=== PATIENT | female | born 2000 | race Caucasian/White ===

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

== ENCOUNTER 2021-01-08 21:31 | Emergency (ER) | payer OTHER, SELFPAY ==
--- NOTE | ~2021-01-08 | US_ITS ---
EXAMINATION: US OB <= 14 weeks fetus EXAM DATE: 01/08/2021 22:42 INDICATION: Pain, bleeding pos preg test, eval for ectopic. 1st trimester. TECHNIQUE: Pelvic obstetrical transabdominal sonogram was performed by a technologist. There are mu ltiple grayscale and Doppler images available for interpretation. There are no earlier studies of th is gestation for comparison. FINDINGS: Uterus measures 7.1 x 3.2 x 4.0 cm. There is no intrauterine or extrauterine iden tified. The ovaries are morphologically normal, and both demonstrate low resistance Doppler waveform. There is no free pelvic fluid. Early intrauterine or recent spontaneous are common causes of elevated beta hCG in absence of intrauterine confirmation. Ultrasound can sometimes identify, but never exclud e an ectopic in the setting of positive beta hCG. Follow up as warranted clinically with s erial beta hCG levels or ultrasound. IMPRESSION: No intrauterine or extrauterine identified. Follow up as warranted clinically with serial beta hCG levels or ultrasound. Reviewed, dictated and finalized at location A.
[2021-01-08 21:35] VITALS: BP 139/84; PULSE 96; RESP 16; TEMP 36.1; O2SAT 99
[2021-01-08 22:27] LABS: Add Urine Microscopic? YES; Appearance Urine Cloudy (Clear); Bacteria Urine Trace /hpf; Bilirubin Urine Negative (Negative); Blood Urine 3+ (Negative); Color Urine Yellow (Yellow); Glucose Urine UA 3+ mg/dL (Negative); Ketones Urine Negative (Negative); Leukocyte Esterase Ur Trace LEU/UL (Negative); Nitrate Urine Negative (Negative); Protein Urine 2+ mg/dL (Negative); RBC Urine >75 /hpf (0-2); Specific Grav Ur 1.015 (1.001-1.035); Squamous Epithelial Cell Urine Moderate /hpf (Few); Urobilinogen Urine Negative mg/dL (<2.0)
[2021-01-08 23:29] LABS: Basophils Percent Auto 0.3 % (0.2-1.2); Eosinophils Absolute Auto 0.1 K/mm3 (0-0.3); Eosinophils Percent Auto 0.5 % (0-4.4); Hematocrit 43.1 % (37.0-47.0); Hemoglobin 14.6 g/dL (12.0-15.0); Immature Granulocyte Absolute 0.02 K/mm3 (0.00-0.031); Immature Granulocyte Percent A 0.2 % (0-0.5); Lymphocytes Absolute Auto 3.51 K/mm3 (0.9-3.2); Lymphocytes Percent Auto 35.4 % (18.3-44.2); Mean Corpuscular HGB Conc 33.9 g/dl (32-36); Mean Corpuscular Hemoglobin 29.7 pg (26-34); Mean Corpuscular Volume 87.8 fl (80-100); Mean Platelet Volume 9.7 fl (7.4-10.4); Monocytes Absolute Auto 0.6 K/mm3 (0.1-0.6); Monocytes Percent Auto 6.4 % (2.6-8.5); Neutrophils Absolute Auto 5.7 K/mm3 (1.3-6.7); Neutrophils Percent Auto 57.2 % (45.5-73.1); Platelet Count Result 414 k/mm3 (150-375); Red Blood Count 4.91 M/mm3 (4.2-5.4); Red Cell Distribution Width 12.5 % (11.5-14.5); White Blood Count 9.9 K/mm3 (4.5-10.0)
[2021-01-08] MEDS: SODIUM CHLORIDE 0.9% IV 1,000 ML 999 ML IV CONT (23:41)
[2021-01-08 23:42] LABS: Alanine Aminotransferase 16 U/L (4-35); Albumin Level 4.8 g/dL (3.7-5.6); Alkaline Phosphatase 95 U/L (45-116); Anion Gap 9 mmol/L (8-16); Aspartate Amino Transferase 28 U/L (14-36); Bilirubin,Total 0.5 mg/dL (0.2-1.3); Blood Urea Nitrogen 8 mg/dL (8-21); Carbon Dioxide 30 mmol/L (22-30); Chloride 99 mmol/L (98-107); Estimated CRCL calculation 170 ml/min; Estimated Glomerular Filt Rate > 60; Glucose 167 mg/dL (65-105); Potassium 3.4 mmol/L (3.4-5.0); Sodium 138 mmol/L (134-143)
--- NOTE | 2021-01-08 23:43 | ED.FEMALEGU ---
HPI - Female Genitourinary General Chief complaint: Vaginal Bleeding Stated complaint: possible 4 weeks / spotting cramping Time Seen by Provider: 01/08/21 22:20 Source: patient Mode of arrival: ambulatory Limitations: no limitations History of Present Illness HPI Narrative: Patient is a 20 year old female who presents with complaints of vaginal spotting. Patient reports positive home test x2 which she took 2 days ago. She reports vaginal spotting and states blood with wiping . She denies pelvic pain or other complaints. MD elicited complaint: vaginal discharge and suspected Related Data Home Medications Medication Instructions Recorded Confirmed insulin glargine [Lantus U-100 27 unit SUBCUT HS 12/10/20 12/10/20 Insulin] fenofibrate 160 mg PO DAILY 12/13/20 12/13/20 insulin lispro protamin-lispro SUBCUT 12/13/20 [Humalog Mix 50-50 KwikPen] norgestimate-ethinyl estradiol 1 tablet PO DAILY 12/13/20 12/13/20 [Estarylla] sertraline [Zoloft] 100 mg PO DAILY 12/13/20 12/13/20 Allergies Allergy/AdvReac Type Severity Reaction Status Date / Time No Known Allergies Allergy Verified 01/08/21 23:24 Review of Systems Review of Systems: Narrative: CONSTITUTIONAL: Denies fever, chills, or sweats. EYES: Denies visual changes, redness, or discharge. ENT: Denies rhinorrhea, congestion, sore throat, or otalgia. CARDIOVASCULAR: Denies chest pain, palpitations, or edema. RESPIRATORY: Denies cough or dyspnea. GASTROINTESTINAL: Denies abdominal pain, nausea, vomiting, or diarrhea. GENITOURINARY: Reports light vaginal bleeding x1 day SKIN: Denies rash or itching. MUSCULOSKELETAL: Denies back pain, joint pain, or myalgia. NEUROLOGIC: Denies headache, numbness, dizziness, or weakness. PSYCHIATRIC: Denies anxiety or depression. [facility] Past Medical History Medical History Depression High cholesterol Type 2 diabetes mellitus Family History Family History Other Diabetes mellitus Heart disease Hypertension Social History Social History (Updated 01/08/21 @ 23:47 by CARITO Thompson) Smoking status: Never smoker Alcohol intake: never Substance use: never Comments At the time of signature, I have reviewed and agree with nursing past medical, surgical, social, and family history unless otherwise noted. Please see nursing chart for further information. There is no relevant family history pertinent to the presenting complaint. Exam Narrative: Exam Narrative: GENERAL: Well-appearing, well-nourished, and in no acute distress. HEAD: Normocephalic, atraumatic. EYES: EOMI. No redness or drainage. Conjunctiva are normal. ENT: Mucous membranes pink and moist. CHEST: No respiratory distress. HEART: Regular rate and rhythm. EXTREMITIES: Normal range of motion. No edema. SKIN: Warm, dry, no rash. NEURO: No focal deficits. Alert and oriented x3. Gait steady. PSYCH: Normal affect. No signs of depression or anxiety. Course Vital Signs Vital signs: Vital Signs Temperature 36.1 C L 01/08/21 21:35 Pulse Rate 96 01/08/21 21:35 Respiratory Rate 16 01/08/21 21:35 Blood Pressure 139/84 01/08/21 21:35 Pulse Oximetry 99 01/08/21 21:35 Temperature 36.1 C L 01/08/21 21:35 Pulse Rate 96 01/08/21 21:35 Respiratory Rate 16 01/08/21 21:35 Blood Pressure 139/84 01/08/21 21:35 Pulse Oximetry 99 01/08/21 21:35 Reviewed MDM - Female Genitourinary MDM Narrative Medical decision making narrative: Patient's ultrasound did not show gestational sac. Patient's beta quant 126. Discussed serial beta HCG, patient agrees with plan of care and will follow up with OBGYN as scheduled. Lab Data Result diagrams: 01/08/21 23:22 01/08/21 22:00 Labs: Lab Results 01/08/21 01/08/21 01/08/21 Range/Units 22:00 22:12 23:22 WBC 9.
[2021-01-09 00:05] LABS: Beta HCG Quantitative 126.49 mIU/ML
[2021-01-09 01:09] VITALS: BP 128/83; PULSE 95; RESP 18; O2SAT 97
== END 2021-01-09 01:10 | disposition home or self-care (01) ==
PROVIDERS: Emergency Medicine; Emergency Provider Nurse Practitioner
DX: O20.9 Hemorrhage in early pregnancy, unspecified (principal); O24.111 Pre-existing type 2 diabetes mellitus, in pregnancy, first trimester; E11.9 Type 2 diabetes mellitus without complications; Z79.4 Long term (current) use of insulin; O99.341 Other mental disorders complicating pregnancy, first trimester; F32.9 Major depressive disorder, single episode, unspecified; Z3A.01 Less than 8 weeks gestation of pregnancy
CPT/HCPCS: 36415; 76801; 80053; 81001; 81025; 84702; 85025; 85461; 87077; 87086; 87088; 96360; 96372; 99284; J7030

== ENCOUNTER 2021-01-09 21:13 | Emergency (ER) | payer OTHER, SELFPAY ==
[2021-01-09 21:15] VITALS: BP 122/80; PULSE 99; RESP 16; TEMP 36.3; O2SAT 98
--- NOTE | 2021-01-09 22:27 | ED.FEMALEGU ---
HPI - Female Genitourinary General Chief complaint: Vaginal Bleeding Stated complaint: vaginal bleeding, Time Seen by Provider: 01/09/21 22:09 Source: patient Mode of arrival: ambulatory Limitations: no limitations History of Present Illness HPI Narrative: This is a 20-year-old female that presents the emergency department for vaginal bleeding. Reports her last menstrual period was in August, which is not unusual for her due to her PCOS. Reports she had a positive home test 2 days ago. She started bleeding and having cramping yesterday. She was seen in the ED for this and had an ultrasound that did not show an intrauterine or extrauterine , likely due to how early she was. Reports she is now having worsening bleeding. This is causing her to feel dizzy. Denies fever, chest pain, shortness of breath, vomiting, or dysuria. Related Data Home Medications Medication Instructions Recorded Confirmed insulin glargine [Lantus U-100 27 unit SUBCUT HS 12/10/20 12/10/20 Insulin] fenofibrate 160 mg PO DAILY 12/13/20 12/13/20 insulin lispro protamin-lispro SUBCUT 12/13/20 [Humalog Mix 50-50 KwikPen] norgestimate-ethinyl estradiol 1 tablet PO DAILY 12/13/20 12/13/20 [Estarylla] sertraline [Zoloft] 100 mg PO DAILY 12/13/20 12/13/20 Allergies Allergy/AdvReac Type Severity Reaction Status Date / Time No Known Allergies Allergy Verified 01/08/21 23:24 Review of Systems Review of Systems: Narrative: CONSTITUTIONAL: Denies fever GASTROINTESTINAL: Reports abdominal pain. Denies nausea, vomiting GENITOURINARY: Denies dysuria All systems reviewed & are unremarkable except as noted in HPI and below PMFSH Past Medical History Medical History Depression High cholesterol Type 2 diabetes mellitus Family History Family History Other Diabetes mellitus Heart disease Hypertension Social History Social History (Updated 01/08/21 @ 23:47 by CARITO Thompson) Smoking status: Never smoker Alcohol intake: never Substance use: never Exam Narrative: Exam Narrative: GENERAL: Well-appearing, well-nourished, anxious HEAD: Normocephalic, atraumatic. EYES: EOMI. CHEST: Clear to auscultation. No respiratory distress. No wheezes rales or rhonchi HEART: Regular rate and rhythm. No murmur heard. Normal peripheral pulses. ABDOMEN: Soft, nontender, nondistended, normal active bowel sounds. EXTREMITIES: Normal range of motion. No edema. SKIN: Warm, dry, no rash. NEURO: No focal deficits. Alert and oriented x3. PSYCH: Normal mood and affect PELVIC: Normal external genitalia. Normal-appearing cervix. Small amount of dark red blood in the vaginal vault Course Consultations Consultation #1: Spoke with Dr. Farnsworth about patient and work-up who will follow-up in clinic. Date: 01/10/21 Time: 00:31 Vital Signs Vital signs: Vital Signs Temperature 97.4 F L 01/09/21 21:15 Pulse Rate 99 01/09/21 21:15 Respiratory Rate 16 01/09/21 21:15 Blood Pressure 122/80 01/09/21 21:15 Pulse Oximetry 98 01/09/21 21:15 Temperature 97.4 F L 01/09/21 21:15 Pulse Rate 72 01/10/21 00:19 Respiratory Rate 18 01/10/21 00:19 Blood Pressure 118/66 01/10/21 00:19 Pulse Oximetry 98 01/09/21 21:15 MDM - Female Genitourinary MDM Narrative Medical decision making narrative: Patient presents the emergency department for pelvic cramping and vaginal bleeding. Was seen here yesterday for same. Had an ultrasound that did not show intrauterine or extrauterine , likely due to early gestation. Her quantitative beta-hCG at that time was 126, repeat today is 48. Small amount of dark red blood in the vaginal vault. Her hemoglobin is 13.5. Patient has A positive. She did have a UA yesterday that appeared to be contaminated. Culture came back today and is positive for gr
[2021-01-09] MEDS: SODIUM CHLORIDE 0.9% IV 1,000 ML 999 ML IV CONT (22:42)
[2021-01-09 22:50] LABS: Basophils Percent Auto 0.4 % (0.2-1.2); Eosinophils Absolute Auto 0.1 K/mm3 (0-0.3); Eosinophils Percent Auto 0.6 % (0-4.4); Hematocrit 40.6 % (37.0-47.0); Hemoglobin 13.5 g/dL (12.0-15.0); Immature Granulocyte Absolute 0.03 K/mm3 (0.00-0.031); Immature Granulocyte Percent A 0.4 % (0-0.5); Lymphocytes Absolute Auto 3.97 K/mm3 (0.9-3.2); Lymphocytes Percent Auto 48.9 % (18.3-44.2); Mean Corpuscular HGB Conc 33.3 g/dl (32-36); Mean Corpuscular Hemoglobin 29.6 pg (26-34); Mean Platelet Volume 9.8 fl (7.4-10.4); Monocytes Absolute Auto 0.5 K/mm3 (0.1-0.6); Monocytes Percent Auto 5.9 % (2.6-8.5); Neutrophils Absolute Auto 3.6 K/mm3 (1.3-6.7); Neutrophils Percent Auto 43.8 % (45.5-73.1); Platelet Count Result 374 k/mm3 (150-375); Red Blood Count 4.56 M/mm3 (4.2-5.4); Red Cell Distribution Width 12.5 % (11.5-14.5); White Blood Count 8.1 K/mm3 (4.5-10.0)
[2021-01-09 22:56] LABS: Alanine Aminotransferase 14 U/L (4-35); Albumin Level 4.4 g/dL (3.7-5.6); Alkaline Phosphatase 81 U/L (45-116); Anion Gap 6 mmol/L (8-16); Aspartate Amino Transferase 22 U/L (14-36); Bilirubin,Total 0.2 mg/dL (0.2-1.3); Blood Urea Nitrogen 8 mg/dL (8-21); Calcium 9.3 mg/dL (8.9-10.7); Carbon Dioxide 30 mmol/L (22-30); Chloride 100 mmol/L (98-107); Estimated CRCL calculation 170 ml/min; Estimated Glomerular Filt Rate > 60; Glucose 264 mg/dL (65-105); Potassium 4.1 mmol/L (3.4-5.0); Sodium 136 mmol/L (134-143)
[2021-01-09 23:03] LABS: Hemoglobin A1C 7.9 % (<5.7)
[2021-01-09 23:12] VITALS: BP 110/68; PULSE 67
[2021-01-09 23:13] VITALS: BP 111/71; PULSE 76
[2021-01-09 23:15] VITALS: BP 113/64; PULSE 84
[2021-01-10 00:19] VITALS: BP 118/66; PULSE 72; RESP 18
== END 2021-01-10 00:41 | disposition home or self-care (01) ==
PROVIDERS: Physician Assistant; Emergency Provider Emergency Medicine
DX: O20.0 Threatened abortion (principal); Z3A.00 Weeks of gestation of pregnancy not specified; O23.10 Infections of bladder in pregnancy, unspecified trimester
CPT/HCPCS: 36415; 80053; 83036; 84702; 85025; 96361; 96365; 99284; J0131; J7030

== ENCOUNTER 2021-01-10 13:38 | Emergency (ER) | payer OTHER, SELFPAY ==
--- NOTE | ~2021-01-10 | XR_ITS ---
EXAMINATION: XR chest 1V portable DATE: 01/10/2021 16:44 INDICATION: Lightheadedness. TECHNIQUE: A single frontal view of the chest was obtained. COMPARISON: None. FINDINGS: The chest demonstrates clear lungs without pneumonia, pleural effusion, or pneumothorax. Th e heart size is normal. IMPRESSION: 1. No acute cardiopulmonary disease. Reviewed, dictated and finalized at location B.
[2021-01-10 13:45] VITALS: BP 144/75; PULSE 97; RESP 20; TEMP 36.3; O2SAT 100
--- NOTE | 2021-01-10 16:21 | ED.DIZZY ---
HPI - Dizziness General Chief Complaint: Dizziness Stated Complaint: dizzy Time Seen by Provider: 01/10/21 16:11 Source: patient Mode of arrival: ambulatory Limitations: no limitations History of Present Illness HPI Narrative: This is a 20 year old female that presents to the ER for lightheadedness. Reports ongoing over the last couple of hours. I saw her in the ED last night for vaginal bleeding in . Also reports ongoing bleeding and cramping. Reports some difficulty catching her breath. Has follow-up appointment with her OB tomorrow. Denies fever, chest pain, vomiting, numbness or weakness. Related Data Home Medications Medication Instructions Recorded Confirmed insulin glargine [Lantus U-100 27 unit SUBCUT HS 12/10/20 12/10/20 Insulin] fenofibrate 160 mg PO DAILY 12/13/20 12/13/20 insulin lispro protamin-lispro SUBCUT 12/13/20 [Humalog Mix 50-50 KwikPen] norgestimate-ethinyl estradiol 1 tablet PO DAILY 12/13/20 12/13/20 [Estarylla] sertraline [Zoloft] 100 mg PO DAILY 12/13/20 12/13/20 Allergies Allergy/AdvReac Type Severity Reaction Status Date / Time No Known Allergies Allergy Verified 01/08/21 23:24 Review of Systems Review of Systems: Narrative: CONSTITUTIONAL: Denies fever CARDIOVASCULAR: Denies chest pain, or edema. RESPIRATORY: Reports dyspnea. GASTROINTESTINAL: Denies nausea, vomiting NEUROLOGIC: Denies numbness, or weakness. All systems reviewed & are unremarkable except as noted in HPI and below PMFSH Past Medical History Medical History Depression High cholesterol Type 2 diabetes mellitus Family History Family History Other Diabetes mellitus Heart disease Hypertension Social History Social History (Updated 01/08/21 @ 23:47 by CARITO Thompson) Smoking status: Never smoker Alcohol intake: never Substance use: never Exam Narrative: Exam Narrative: GENERAL: Well-appearing, well-nourished, and in no acute distress. HEAD: Normocephalic, atraumatic. EYES: PERRLA and EOMI. ENT: Nares clear, no rhinorrhea or epistaxis. Mucous membranes moist. Oropharynx without tonsillar hypertrophy exudate or other lesions. Bilateral TMs pearly nugent non-bulging NECK: Supple. No adenopathy or masses. CHEST: Clear to auscultation. No respiratory distress. No wheezes rales or rhonchi HEART: Regular rate and rhythm. No murmur heard. Normal peripheral pulses. EXTREMITIES: Normal range of motion. No edema. SKIN: Warm, dry, no rash. NEURO: No focal deficits. Alert and oriented x3. Cranial nerves II through XII grossly intact PSYCH: Normal mood and affect Course Vital Signs Vital signs: Vital Signs Temperature 97.4 F L 01/10/21 13:45 Pulse Rate 97 01/10/21 13:45 Respiratory Rate 20 01/10/21 13:45 Blood Pressure 144/75 H 01/10/21 13:45 Pulse Oximetry 100 01/10/21 13:45 Temperature 97.4 F L 01/10/21 13:45 Pulse Rate 88 01/10/21 17:29 Respiratory Rate 16 01/10/21 17:29 Blood Pressure 122/85 01/10/21 17:29 Pulse Oximetry 98 01/10/21 17:29 MDM - Dizziness MDM Narrative Medical decision making narrative: Patient presents the emergency department for lightheadedness noted over the last couple of hours. She is afebrile and nontoxic-appearing. Vitals are stable. CBC with hemoglobin of 12.4. Chest x-ray is without acute findings. EKG without concerning changes. This is the patient's third ED visit in the last 3 days. Currently miscarrying. Beta hCG has dropped from 126 to 48 to 29. She has follow-up with her OB tomorrow. She is still having some bleeding. She is A positive. She is also currently being treated for UTI with cephalexin. Reports improvement in her symptoms with IV fluids and Tylenol. She is to follow-up with her OB at her scheduled visit. She was given warnings to return to the ER Lab Data Attestation: I review
[2021-01-10 16:33] VITALS: BP 116/76; PULSE 76; RESP 16; O2SAT 100
--- NOTE | 2021-01-10 16:43 | PC.NURSE ---
xray at bedside.
[2021-01-10 16:45] LABS: Basophils Percent Auto 0.2 % (0.2-1.2); Eosinophils Percent Auto 0.4 % (0-4.4); Hematocrit 37.7 % (37.0-47.0); Hemoglobin 12.4 g/dL (12.0-15.0); Immature Granulocyte Absolute 0.01 K/mm3 (0.00-0.031); Immature Granulocyte Percent A 0.1 % (0-0.5); Lymphocytes Absolute Auto 3.43 K/mm3 (0.9-3.2); Lymphocytes Percent Auto 41.4 % (18.3-44.2); Mean Corpuscular HGB Conc 32.9 g/dl (32-36); Mean Corpuscular Hemoglobin 29.4 pg (26-34); Mean Corpuscular Volume 89.3 fl (80-100); Mean Platelet Volume 10.1 fl (7.4-10.4); Monocytes Absolute Auto 0.6 K/mm3 (0.1-0.6); Monocytes Percent Auto 6.9 % (2.6-8.5); Neutrophils Absolute Auto 4.2 K/mm3 (1.3-6.7); Platelet Count Result 346 k/mm3 (150-375); Red Blood Count 4.22 M/mm3 (4.2-5.4); Red Cell Distribution Width 12.6 % (11.5-14.5); White Blood Count 8.3 K/mm3 (4.5-10.0)
[2021-01-10] MEDS: SODIUM CHLORIDE 0.9% IV 500 ML 999 ML IV CONT (16:46)
[2021-01-10] MEDS: ACETAMINOPHEN 500 MG TABLET 1000 MG PO (16:46)
[2021-01-10 17:10] LABS: Beta HCG Quantitative 29.33 mIU/ML
[2021-01-10 17:29] VITALS: BP 122/85; PULSE 88; RESP 16; O2SAT 98
--- NOTE | 2021-01-10 17:43 | ECG_ITS ---
Measurements Intervals [place] Rate: 77 P: 17 ND: 128 QRS: 44 QRSD: 94 T: 43 QT: 397 QTc: 452 Interpretive Statements SINUS RHYTHM WITH SINUS ARRHYTHMIA NORMAL ECG Electronically Signed On 01-10-2021 19:35:57 CDT by Bogdan Pan D.O.
--- NOTE | 2021-01-10 17:51 | PC.NURSE ---
Assumed care of pt. at this time. Report from Mary Abdi RN
[2021-01-10 18:30] VITALS: BP 120/76; PULSE 87; RESP 19; O2SAT 100
== END 2021-01-10 18:30 | disposition home or self-care (01) ==
PROVIDERS: Physician Assistant; Emergency Provider Emergency Medicine
DX: R42 Dizziness and giddiness (principal); O03.9 Complete or unspecified spontaneous abortion without complication; E11.9 Type 2 diabetes mellitus without complications; N39.0 Urinary tract infection, site not specified
CPT/HCPCS: 36415; 71045; 84702; 85025; 93005; 96360; 99283; A9270; J7040

== ENCOUNTER 2021-02-17 09:47 | Emergency (ER) | payer OTHER, SELFPAY ==
[2021-02-17 09:58] VITALS: BP 118/65; PULSE 84; RESP 16; TEMP 36.2; O2SAT 100
[2021-02-17 10:00] VITALS: BP 118/65; PULSE 84; RESP 16; TEMP 36.2; O2SAT 100
--- NOTE | 2021-02-17 10:15 | ECG_ITS ---
Measurements Intervals [place] Rate: 80 P: 10 MI: 139 QRS: 50 QRSD: 90 T: 43 QT: 390 QTc: 450 Interpretive Statements SINUS RHYTHM NORMAL ECG Electronically Signed On 02-17-2021 12:25:46 CDT by Bogdan Pan D.O.
[2021-02-17 10:27] LABS: Glucose Point of Care 169 mg/dl (65-105)
[2021-02-17 10:30] VITALS: BP 131/71; PULSE 78
[2021-02-17 10:31] VITALS: BP 119/74; BP 134/79; PULSE 57; PULSE 94
--- NOTE | 2021-02-17 10:40 | ED.GENADULT ---
HPI - General Adult General Chief complaint: Dizziness Stated complaint: dizziness/tingling toes-fingers Time Seen by Provider: 02/17/21 10:40 Source: patient, RN notes reviewed and other (significant other-ok to speak freely in front of and to) Mode of arrival: ambulatory Limitations: no limitations History of Present Illness HPI narrative: 20-year-old female presents with significant other, both complains of dizziness, migraines, headache, and tingling in fingers and toes symptoms being going on for the past 2-3 weeks. ?Re reports increasing symptoms over the past 2-3 days. ?No treatment. Exacerbating factors consist of changing position too fast, turning head from side to side too fast. ?Relieving factors are sitting still. ?Denies ear pain, ear itching, ear trauma, trauma to head, syncopal episodes, altered vision, altered speech, confusion, or seizure activity. ?Denies headache, numbness or tingling in extremities. ?Denies chest pain or dyspnea. ?Denies URI symptoms, fever, or chills. ?Denies nausea, vomiting, abdominal pain. ?Tolerating p.o. intake well. ?Remains active. ?The patient reports she has not been diagnosed with COVID-19. ?The patient reports she is not waiting for the results of a COVID-19 lab test. ?The patient reports she does not have weakness or fatigue. ?The patient reports she does not have a new or worsening cough. ?The patient reports she does not have any rhinorrhea, congestion, sore throat, loss of taste or smell, and diarrhea. ?Denies recent traveling. ?Denies concerns for COVID-19 or exposures. ?At this time, the patient is not suspected of having COVID-19. Complains of intermittent depression, problems concentrating, auditory, and visual hallucination. ?Re reports being treated for depression, problems concentrating, auditory and ?visual hallucination since the age of 6. ?Has undergone counseling and treatment for years without much relief. ?Denies suicidal or homicidal ideation, or feeling hopeless. ?Denies current anxiety, panic attacks, irritability, feelings of guilt, worthlessness, or hopelessness. Denies recreational drug usage.? Some parts of this dictation were generated by voice recognition software and may contain typographical and/or grammatical inaccuracies. Related Data Home Medications Medication Instructions Recorded Confirmed insulin glargine [Lantus U-100 27 unit SUBCUT HS 12/10/20 12/10/20 Insulin] sertraline [Zoloft] 100 mg PO DAILY 12/13/20 12/13/20 [place] 3 Fish Oil 02/17/21 02/17/21 Allergies Allergy/AdvReac Type Severity Reaction Status Date / Time No Known Allergies Allergy Verified 01/08/21 23:24 Review of Systems Review of Systems: Narrative: CONSTITUTIONAL: Denies fever, chills, sweats. EYES: Denies visual changes, redness, discharge. ENT: Denies rhinorrhea, congestion, sore throat, otalgia. CARDIOVASCULAR: Denies chest pain, palpitations, edema. RESPIRATORY: Denies dyspnea, wheezing, cough. GASTROINTESTINAL: Denies abdominal pain, nausea, vomiting, diarrhea. GENITOURINARY: Denies dysuria, hematuria, abnormal discharge. SKIN: Denies lesions, itching, drainage. MUSCULOSKELETAL: Denies acute back pain, joint pain, or myalgia. NEUROLOGIC: Denies numbness or focal weakness. Complains of dizziness, lightheadedness, and tingling to fingers and toes. PSYCHIATRIC: Denies anxiety or SI/HI. Complaints of VELA, problems concentrating, auditory, and visual hallucination, depression. All systems reviewed & are unremarkable except as noted in HPI and below. [facility] Past Medical History Medical History (Updated 02/18/21 @ 00:01 by Marin Stuart) Depression Heart disease High cholesterol Hx of migraines Ingrown toenail of both feet PCOS (polycystic ovarian syndrome) TMJ (dislocation of temporomandibular joint) Type 2 diabetes mellitus Surgical History Surgical History (Updated 02/17/21 @ 11:15 by CARITO Thomas) History of dental surgery
--- NOTE | 2021-02-17 11:02 | PC.NURSE ---
orthostatics done at 1030 and tolerated well. ekg done at 1038. 1058 boyfriend used call button and concerned with oxygen. pulse ox 100% ra, resp 16 nonlabored, and taked in full complete sentences. was placed on continous pulse ox. screenplay writer at bedside to do exam.
[2021-02-17] MEDS: KETOROLAC (*BKC) 60 MG/2 ML VIAL IM (11:16)
[2021-02-17] MEDS: MECLIZINE HCL 25 MG TABLET PO (11:17)
== END 2021-02-17 12:06 | disposition home or self-care (01) ==
PROVIDERS: Emergency Provider Nurse Practitioner Family; PCP Physician Assistant
DX: H81.10 Benign paroxysmal vertigo, unspecified ear (principal); R51.9 Headache, unspecified; F32.9 Major depressive disorder, single episode, unspecified; E78.00 Pure hypercholesterolemia, unspecified; E28.2 Polycystic ovarian syndrome; E11.9 Type 2 diabetes mellitus without complications
CPT/HCPCS: 81003; 82948; 93005; 96372; 99213; A9270; G0463; J1885

== ENCOUNTER 2021-03-10 23:14 | Emergency (ER) | payer OTHER, SELFPAY ==
--- NOTE | ~2021-03-10 | XR_ITS ---
EXAMINATION: XR chest 1V DATE: 03/11/2021 00:40 INDICATION: Altered mental status. TECHNIQUE: A single frontal view of the chest was obtained. COMPARISON: Chest single view 01/10/2021 FINDINGS: The lung volumes are small. No pneumonia, pleural effusion, or pneumothorax. The heart size is normal. IMPRESSION: 1. No acute cardiopulmonary disease. Reviewed, dictated and finalized at location A.
--- NOTE | ~2021-03-10 | CT_ITS ---
EXAMINATION: CT brain wo con DATE: 03/11/2021 00:37 INDICATION: Altered mental status. TECHNIQUE: Computed tomography (CT) of the head was performed without intravenous contrast. The mA wa s adjusted according to patient size. Iterative reconstruction technique was employed. The dose-lengt h product was 605.33 mGy-cm. COMPARISON: None FINDINGS: There is no intracranial hemorrhage, acute infarction, or abnormal intracranial mass lesion . The ventricles are normal in size. There is mucosal thickening in the paranasal sinuses. The mastoi d air cells are normal. The orbits are normal. IMPRESSION: 1. Normal brain. Reviewed, dictated and finalized at location A. IMPRESSION: 1. Normal brain.
[2021-03-10] MEDS: LORazepam INJ (*CRX) 2 MG/ML VIAL 1 MG IV PUSH (23:32)
[2021-03-10] MEDS: SODIUM CHLORIDE 0.9% IV 1,000 ML 999 ML IV CONT (23:33)
[2021-03-10 23:35] VITALS: BP 171/142; PULSE 141; RESP 30; TEMP 37; O2SAT 99
[2021-03-10 23:39] LABS: Glucose Point of Care 249 mg/dl (65-105)
[2021-03-11] VITALS (9 sets, daily range): BP systolic 95–124; BP diastolic 55–94; PULSE 79–124; RESP 18; O2SAT 97–100
--- NOTE | 2021-03-11 | PC.NURSE ---
pt yelling in hebrew, crying, eyes closed, not answering any questions at this time. this rn in room getting labs & urine from pt.
[2021-03-11 00:12] LABS: Basophils Percent Auto 0.3 % (0.2-1.2); Eosinophils Absolute Auto 0.1 K/mm3 (0-0.3); Eosinophils Percent Auto 0.5 % (0-4.4); Hematocrit 44.8 % (37.0-47.0); Immature Granulocyte Absolute 0.04 K/mm3 (0.00-0.031); Immature Granulocyte Percent A 0.3 % (0-0.5); Lymphocytes Absolute Auto 6.51 K/mm3 (0.9-3.2); Lymphocytes Percent Auto 41.5 % (18.3-44.2); Mean Corpuscular HGB Conc 33.5 g/dl (32-36); Mean Corpuscular Hemoglobin 28.6 pg (26-34); Mean Corpuscular Volume 85.3 fl (80-100); Monocytes Absolute Auto 1.2 K/mm3 (0.1-0.6); Monocytes Percent Auto 7.5 % (2.6-8.5); Neutrophils Absolute Auto 7.8 K/mm3 (1.3-6.7); Neutrophils Percent Auto 49.9 % (45.5-73.1); Platelet Count Result 445 k/mm3 (150-375); Red Blood Count 5.25 M/mm3 (4.2-5.4); Red Cell Distribution Width 12.4 % (11.5-14.5); White Blood Count 15.7 K/mm3 (4.5-10.0)
[2021-03-11 00:14] LABS: Add Urine Microscopic? YES; Appearance Urine Clear (Clear); Bilirubin Urine Negative (Negative); Blood Urine Negative (Negative); Color Urine Yellow (Yellow); Glucose Urine UA 3+ mg/dL (Negative); Ketones Urine Negative (Negative); Leukocyte Esterase Ur Negative LEU/UL (Negative); Mucus Urine Rare /lpf; Nitrate Urine Negative (Negative); Protein Urine Negative (Negative); RBC Urine 0-2 /hpf (0-2); Squamous Epithelial Cell Urine Rare /hpf (Few); Urobilinogen Urine Negative mg/dL (<2.0); WBC Urine 0-3 /hpf
[2021-03-11 00:15] LABS: Alanine Aminotransferase 16 U/L (4-35); Alkaline Phosphatase 92 U/L (45-116); Anion Gap 13 mmol/L (8-16); Aspartate Amino Transferase 22 U/L (14-36); Bilirubin,Total 0.3 mg/dL (0.2-1.3); Blood Urea Nitrogen 12 mg/dL (8-21); Calcium 10.2 mg/dL (8.9-10.7); Carbon Dioxide 21 mmol/L (22-30); Chloride 102 mmol/L (98-107); Estimated Glomerular Filt Rate > 60; Glucose 268 mg/dL (65-105); Prothrombin Time 12.9 Seconds (11.1-14.7); Sodium 136 mmol/L (134-143)
[2021-03-11 00:16] LABS: Ethanol < 10 mg/dL (<10)
[2021-03-11] MEDS: OLANZapine 10 MG INJ VIAL 5 MG IM (00:16)
[2021-03-11 00:17] LABS: Partial Thromboplastin Time 26.4 SECONDS (22.3-36.8)
[2021-03-11 00:20] LABS: Specific Grav Ur 1.032 (1.001-1.035)
--- NOTE | 2021-03-11 00:45 | PC.NURSE ---
pt speaking to this rn at this time. pt states she is having auditory and visual hallucinations of stick figures that are trying to harm her. pt denies any SI or HI tendencies at this time. she states she has had this happen in the past when she was 15 years old. she states she takes zoloft and hasnt missed any doses. she states she moved here from [place] 5 months ago to be with her boyfriend that she met online. she reports seeing a psychiatrist in [place] but denies seeing one here.
--- NOTE | 2021-03-11 00:45 | PC.NURSE ---
pt yelling in hebrew, crying, eyes closed, not answering any questions at this time. this rn in room getting labs & urine from pt.
--- NOTE | 2021-03-11 00:55 | ED.GENADULT ---
HPI - General Adult General Chief complaint: Altered Mental Status <Bj Ferrer DO - Last Filed: 03/11/21 06:11> Stated complaint: Hallucinations, dizziness <Bj Ferrer DO - Last Filed: 03/11/21 06:11> Time Seen by Provider: 03/10/21 23:23 <Bj Ferrer DO - Last Filed: 03/11/21 06:11> Source: RN notes reviewed <Bj Ferrer DO - Last Filed: 03/11/21 06:11> History of Present Illness HPI narrative: Patient presents to emergency department from home for altered mental status. Patient is currently screaming out nonsensically crying and wailing in the room unable to give any history patient presents with her boyfriend. Per the boyfriend they are watching a movie this evening when the patient looked admits that she did not feel good and needed to the emergency department. States she then began to kind of mumble but really not speech anymore on the way to the emergency department the patient began to scream out and cry repeatedly states the patient was in normal health earlier today with no complaints and was acting like herself the states the patient has a history of diabetes <Bj Ferrer DO - Last Filed: 03/11/21 06:11> Related Data Home medications: Home Medications Medication Instructions Recorded Confirmed insulin glargine [Lantus U-100 27 unit SUBCUT HS 12/10/20 12/10/20 Insulin] sertraline [Zoloft] 100 mg PO DAILY 12/13/20 12/13/20 [place] 3 Fish Oil 02/17/21 02/17/21 <Bj Ferrer DO - Last Filed: 03/11/21 06:11> Allergies/adverse reactions: Allergies Allergy/AdvReac Type Severity Reaction Status Date / Time No Known Allergies Allergy Verified 01/08/21 23:24 <Bj Ferrer DO - Last Filed: 03/11/21 06:11> Review of Systems Review of Systems: ROS unobtainable: Yes unobtainable due to medical condition <Bj Ferrer DO - Last Filed: 03/11/21 06:11> [facility] Past Medical History Medical History: Medical History Depression Heart disease High cholesterol Hx of migraines Ingrown toenail of both feet PCOS (polycystic ovarian syndrome) TMJ (dislocation of temporomandibular joint) Type 2 diabetes mellitus <Bj Ferrer DO - Last Filed: 03/11/21 06:11> Surgical History Surgical History: Surgical History (Updated 02/17/21 @ 11:15 by CARITO Thomas) History of dental surgery History of toe surgery Bilateral for ingrown toenail <Bj Ferrer DO - Last Filed: 03/11/21 06:11> Family History Family History: Family History Other Diabetes mellitus Heart disease Hypertension <Bj Ferrer DO - Last Filed: 03/11/21 06:11> Social History Social History: Social History Smoking status: Never smoker Tobacco type: cigarettes Second hand tobacco smoke exposure: No Alcohol intake: never Substance use: never Substance use type: does not use Gender identity (if verbalized by the patient): Female <Bj Ferrer DO - Last Filed: 03/11/21 06:11> Exam Narrative: Exam Narrative: APPEARANCE: Crying hysterically in bed screaming out will not answer any questions EYES: PERRL HEENT: Normocephalic, atraumatic, OMM RESPIRATORY: No respiratory distress Clear to auscultation bilaterally with no rhonchi wheezing or rales. CARDIOVASCULAR: Regular rate and rhythm without murmurs rubs or gallops. ABDOMINAL: Soft, nontender, nondistended, no rebound or guarding MUSCULOSKELETAl: Moves all extremities. No clubbing, cyanosis or edema. NEURO: Awake and crying but does not answer any questions follows a few minimal commands SKIN:: Warm, dry. No rashes lesions or abrasions PSYCHIATRIC: Tearful and screaming out in bed <Bj Ferrer DO - Last Filed: 03/11/21 06:11> Course Course Emerge
[2021-03-11 01:00] LABS: Beta-Hydroxybutyrate/Acetoacetate 0.07 mmol/L (0.02-0.27)
[2021-03-11 01:02] LABS: Amphetamine Screen Urine Negative (Negative); Barbiturate Screen Urine Negative (Negative); Benzodiazepines Screen Urine Negative (Negative); Cannabinoid Screen Urine Negative (Negative); Cocaine Screen Urine Negative (Negative); Methadone Screen Urine Negative (Negative); Opiate Screen Urine Negative (Negative); Phencyclidine Screen Urine Negative (Negative)
--- NOTE | 2021-03-11 01:08 | PC.NURSE ---
this rn calling LILIA at this time
--- NOTE | 2021-03-11 01:24 | PC.NURSE ---
this rn spoke to christiano at [facility]. she states shes going to have someone come out and talk to pt.
--- NOTE | 2021-03-11 01:35 | PC.NURSE ---
Екатерина in room w/ pt
[2021-03-11] MEDS: SODIUM CHLORIDE 0.9% IV 1,000 ML 999 ML IV CONT (02:30)
[2021-03-11 04:43] LABS: Glucose Point of Care 298 mg/dl (65-105)
--- NOTE | 2021-03-11 06:50 | PC.NURSE ---
this rn just spoke to LILIA and let them know pt is awake enough to speak to someone. thye state they will get ahold of someone and theyll come out to speak to pt.
--- NOTE | 2021-03-11 07:15 | PC.NURSE ---
Addendum entered by Hilda Bowen RN 03/11/21 08:06: [employer] worker here at 0745, not charted time of 0715 Original Note: brewery worker out to speak with pt.
--- NOTE | 2021-03-11 07:30 | PC.NURSE ---
coke worker called and states she will be here to speak with pt.
--- NOTE | 2021-03-11 08:00 | PC.NURSE ---
print binding and finishing worker states that she is unable to do assessment of pt due to pt being not being coherent . Charge nurse and EDP aware of this.
--- NOTE | 2021-03-11 10:29 | PC.NURSE ---
Pt ambulated to restroom. Crisis contacted
[2021-03-11 11:11] LABS: Glucose Point of Care 300 mg/dl (65-105)
--- NOTE | 2021-03-11 11:33 | PC.NURSE ---
Pt states she would like to go home and eat. Informed pt that she will need to speak with LILIA before pt can leave. Pt agreed.
[2021-03-11] MEDS: INSULIN ASPART (*BKC) 100 UNITS/ML 20 UNITS SUB-Q (12:06)
--- NOTE | 2021-03-11 12:49 | PC.NURSE ---
Екатерина here to speak with pt
== END 2021-03-11 14:22 | disposition home or self-care (01) ==
PROVIDERS: Emergency Provider Emergency Medicine; PCP Physician Assistant
DX: R44.3 Hallucinations, unspecified (principal); F32.9 Major depressive disorder, single episode, unspecified; E78.00 Pure hypercholesterolemia, unspecified; E28.2 Polycystic ovarian syndrome; E11.9 Type 2 diabetes mellitus without complications; I51.9 Heart disease, unspecified; Z79.4 Long term (current) use of insulin
CPT/HCPCS: 36415; 51701; 70450; 71045; 80053; 80307; 81001; 82010; 82948; 84443; 85025; 85610; 85730; 96361; 96372; 96374; 99284; J1815; J2060; J7030

== ENCOUNTER 2021-03-12 14:10 | Emergency (ER) | payer OTHER, SELFPAY ==
[2021-03-12 14:21] VITALS: BP 130/88; PULSE 97; RESP 18; TEMP 36.9; O2SAT 100
[2021-03-12 14:54] VITALS: PULSE 78; RESP 16; O2SAT 100
[2021-03-12 14:54] LABS: Glucose Point of Care 269 mg/dl (65-105)
[2021-03-12 15:00] LABS: Add Urine Microscopic? YES; Appearance Urine Clear (Clear); Bilirubin Urine Negative (Negative); Blood Urine Negative (Negative); Color Urine Colorless (Yellow); Glucose Urine UA 3+ mg/dL (Negative); Ketones Urine Negative (Negative); Leukocyte Esterase Ur Negative LEU/UL (Negative); Nitrate Urine Negative (Negative); Protein Urine Negative (Negative); RBC Urine 0-2 /hpf (0-2); Specific Grav Ur 1.022 (1.001-1.035); Urobilinogen Urine Negative mg/dL (<2.0)
[2021-03-12 15:02] LABS: Basophils Percent Auto 0.4 % (0.2-1.2); Eosinophils Percent Auto 0.4 % (0-4.4); Hematocrit 40.4 % (37.0-47.0); Hemoglobin 13.5 g/dL (12.0-15.0); Immature Granulocyte Absolute 0.03 K/mm3 (0.00-0.031); Immature Granulocyte Percent A 0.3 % (0-0.5); Lymphocytes Absolute Auto 4.05 K/mm3 (0.9-3.2); Lymphocytes Percent Auto 39.8 % (18.3-44.2); Mean Corpuscular HGB Conc 33.4 g/dl (32-36); Mean Corpuscular Hemoglobin 28.7 pg (26-34); Mean Platelet Volume 9.6 fl (7.4-10.4); Monocytes Absolute Auto 0.7 K/mm3 (0.1-0.6); Monocytes Percent Auto 7.1 % (2.6-8.5); Neutrophils Absolute Auto 5.3 K/mm3 (1.3-6.7); Platelet Count Result 346 k/mm3 (150-375); Red Cell Distribution Width 12.4 % (11.5-14.5); White Blood Count 10.2 K/mm3 (4.5-10.0)
[2021-03-12] MEDS: SODIUM CHLORIDE 0.9% IV 1,000 ML 999 ML IV CONT ×2 (15:02→16:56)
[2021-03-12 15:09] LABS: Alanine Aminotransferase 16 U/L (4-35); Albumin Level 4.9 g/dL (3.7-5.6); Alkaline Phosphatase 85 U/L (45-116); Anion Gap 10 mmol/L (8-16); Aspartate Amino Transferase 19 U/L (14-36); Bilirubin,Total 0.3 mg/dL (0.2-1.3); Blood Urea Nitrogen 11 mg/dL (8-21); Calcium 10.1 mg/dL (8.9-10.7); Carbon Dioxide 26 mmol/L (22-30); Chloride 100 mmol/L (98-107); Estimated CRCL calculation 147 ml/min; Estimated Glomerular Filt Rate > 60; Glucose 242 mg/dL (65-105); Magnesium 1.7 mg/dL (1.6-2.3); Phosphorus 5.4 mg/dL (2.5-4.5); Potassium 4.1 mmol/L (3.4-5.0); Sodium 136 mmol/L (134-143)
[2021-03-12 15:17] LABS: Beta-Hydroxybutyrate/Acetoacetate 0.07 mmol/L (0.02-0.27)
[2021-03-12] MEDS: INSULIN HUMAN REGULAR (*BKC) 100 UNITS/ML 8 UNITS SUB-Q (16:14)
--- NOTE | 2021-03-12 16:26 | ED.GENADULT ---
HPI - General Adult General Chief complaint: Recheck/Abnormal Lab/Rx Stated complaint: elevated blood sugar Time Seen by Provider: 03/12/21 14:35 Source: patient, RN notes reviewed and old records reviewed Mode of arrival: ambulatory Limitations: no limitations History of Present Illness HPI narrative: Patient is a 20-year-old female who presents with hyperglycemia noted at home notes that her sugars have been running higher than normal lately she is scheduled to see an elevator operator in May patient was concerned today given that she had a reading of 400 on arrival to emergency department her sugar is in the 200 range. Patient was seen yesterday in the ER for psychological reasons. Patient today is in the room in no distress denies any illness or other complaints and notes that she has been compliant with her medications is kept a tight log on her medications and has been on her insulin long-term which is currently managed by primary care Related Data Home Medications Medication Instructions Recorded Confirmed insulin glargine [Lantus U-100 30 unit SUBCUT HS 12/10/20 12/10/20 Insulin] sertraline [Zoloft] 100 mg PO DAILY 12/13/20 12/13/20 [place] 3 Fish Oil 02/17/21 02/17/21 Allergies Allergy/AdvReac Type Severity Reaction Status Date / Time No Known Allergies Allergy Verified 03/12/21 14:57 Review of Systems Review of Systems: All systems reviewed & are unremarkable except as noted in HPI and below PMFSH Past Medical History Medical History Depression Heart disease High cholesterol Hx of migraines Ingrown toenail of both feet PCOS (polycystic ovarian syndrome) TMJ (dislocation of temporomandibular joint) Type 2 diabetes mellitus Surgical History Surgical History History of dental surgery History of toe surgery Bilateral for ingrown toenail Family History Family History Other Diabetes mellitus Heart disease Hypertension Social History Social History Smoking status: Never smoker Tobacco type: cigarettes Second hand tobacco smoke exposure: No Alcohol intake: never Substance use: never Substance use type: does not use Gender identity (if verbalized by the patient): Female Exam Narrative: Exam Narrative: GENERAL: Well-appearing, obese, and in no acute distress. HEAD: Normocephalic, atraumatic. EYES: PERRLA and EOMI. ENT: Nares clear, no rhinorrhea or epistaxis. Mucous membranes moist. CHEST: Clear to auscultation. No respiratory distress. No wheezes rales or rhonchi HEART: Regular rate and rhythm. No murmur heard. EXTREMITIES: Normal range of motion. No edema. SKIN: Warm, dry, no rash. NEURO: No focal deficits. Alert and oriented x3. PSYCH: Normal mood and affect. Course Course Emergency Course: Patient evaluated the emergency department had marked improvement with medications no other high risk changes will be discharged home with outpatient follow-up felt appropriate for outpatient reevaluation Vital Signs Vital signs: Vital Signs Temperature 98.5 F 03/12/21 14:21 Pulse Rate 97 03/12/21 14:21 Respiratory Rate 18 03/12/21 14:21 Blood Pressure 130/88 03/12/21 14:21 Pulse Oximetry 100 03/12/21 14:21 Temperature 98.5 F 03/12/21 14:21 Pulse Rate 78 03/12/21 14:54 Respiratory Rate 16 03/12/21 14:54 Blood Pressure 130/88 03/12/21 14:21 Pulse Oximetry 100 03/12/21 14:54 Medical Decision Making MDM Narrative Medical decision making narrative: Patient presented in no distress aware of case findings treatment plan and diagnosis will be discharged home at this time with outpatient follow-up felt appropriate for reevaluation on outpatient basis Vital Signs Vital Signs: Vital Signs Temperature 9
[2021-03-12 16:47] LABS: Glucose Point of Care 163 mg/dl (65-105)
[2021-03-12 17:26] VITALS: BP 137/90; PULSE 86; RESP 20
== END 2021-03-12 17:27 | disposition home or self-care (01) ==
PROVIDERS: Emergency Medicine Emergency Medical Services; Emergency Provider Emergency Medicine; PCP Physician Assistant
DX: E11.65 Type 2 diabetes mellitus with hyperglycemia (principal); Z79.4 Long term (current) use of insulin; I25.10 Atherosclerotic heart disease of native coronary artery without angina pectoris; F32.9 Major depressive disorder, single episode, unspecified
CPT/HCPCS: 36415; 80053; 81001; 81025; 82010; 82948; 83735; 84100; 85025; 96360; 99283; J1815; J7030

== ENCOUNTER 2021-04-07 15:30 | Emergency (ER) | payer OTHER, SELFPAY ==
[2021-04-07 15:50] VITALS: BP 105/61; PULSE 95; RESP 16; TEMP 36; O2SAT 100
--- NOTE | 2021-04-07 16:53 | ED.GENADULT ---
HPI - General Adult General Chief complaint: Unspecified Stated complaint: RX Refill Time Seen by Provider: 04/07/21 16:40 Source: patient and RN notes reviewed Mode of arrival: ambulatory Limitations: no limitations History of Present Illness HPI narrative: Patient presents today requesting a refill on her aripiprazole 5 mg. She received a new prescription that was filled yesterday for a 1 month supply. States she took her first dose yesterday then her dog subsequently ate all the rest of the prescription. Her dog is currently in the ICU veterinary unit and she has called the doctor to refill the medication, but they are currently closed on the weekends and it has been suggested by the pharmacy that patient come to urgent care to obtain a refill. MD complaint: Medication refill Related Data Home Medications Medication Instructions Recorded Confirmed insulin glargine [Lantus U-100 30 unit SUBCUT HS 12/10/20 04/07/21 Insulin] sertraline [Zoloft] 100 mg PO DAILY 12/13/20 04/07/21 [place] 3 Fish Oil 02/17/21 aripiprazole 5 mg PO DAILY 04/07/21 04/07/21 Allergies Allergy/AdvReac Type Severity Reaction Status Date / Time No Known Allergies Allergy Verified 04/07/21 15:47 Review of Systems Review of Systems: CONSTITUTIONAL: Denies body aches, fever, chills, or sweats. EYES: Denies visual changes, redness, or discharge. ENT: Denies rhinorrhea, congestion, sore throat, or otalgia. CARDIOVASCULAR: Denies chest pain, palpitations, or edema. RESPIRATORY: Denies cough or dyspnea. GASTROINTESTINAL: Denies abdominal pain, nausea, vomiting, or diarrhea. GENITOURINARY: Denies dysuria or hematuria. SKIN: Denies rash, itching, or wounds. MUSCULOSKELETAL: Denies back pain, joint pain, or myalgia. NEUROLOGIC: Denies headache, numbness, tingling, or weakness. PSYCH: Denies depression or anxiety. [facility] Past Medical History Medical History Depression Heart disease High cholesterol Hx of migraines Ingrown toenail of both feet PCOS (polycystic ovarian syndrome) TMJ (dislocation of temporomandibular joint) Type 2 diabetes mellitus Surgical History Surgical History History of dental surgery History of toe surgery Bilateral for ingrown toenail Family History Family History Other Diabetes mellitus Heart disease Hypertension Social History Social History Smoking status: Never smoker Tobacco type: cigarettes Second hand tobacco smoke exposure: No Alcohol intake: never Substance use: never Substance use type: does not use Gender identity (if verbalized by the patient): Female Comments At time of signature, I have reviewed and agree with nursing past medical, surgical, social and family history unless otherwise noted. Please see nursing chart for further information. There is no relevant family history pertinent to the presenting complaint Exam Narrative: GENERAL: Well-appearing, well-nourished, and in no acute distress. HEAD: Normocephalic, atraumatic. EYES: EOMI. No redness or drainage. Conjunctivae normal. ENT: Mucous membranes pink and moist. NECK: Normal AROM. CHEST: No respiratory distress. EXTREMITIES: Normal range of motion. No edema. SKIN: Warm, dry, no rash. Capillary refill normal. Normal skin turgor. NEURO: No focal deficits. Alert and oriented x3. Gait steady. PSYCH: Normal affect. No signs of depression or anxiety. Course Vital Signs Vital signs: Vital Signs Temperature 96.8 F L 04/07/21 15:50 Pulse Rate 95 04/07/21 15:50 Respiratory Rate 16 04/07/21 15:50 Blood Pressure 105/61 04/07/21 15:50 Pulse Oximetry 100 04/07/21 15:50 Temperature 96.8 F L 04/07/21 15:50 Pulse Rate 95 04/07/21 15:50 Respiratory Ra
== END 2021-04-07 17:00 | disposition home or self-care (01) ==
PROVIDERS: Emergency Provider Nurse Practitioner; PCP Physician Assistant
DX: Z76.0 Encounter for issue of repeat prescription (principal); F32.9 Major depressive disorder, single episode, unspecified; E78.00 Pure hypercholesterolemia, unspecified; E28.2 Polycystic ovarian syndrome; E11.9 Type 2 diabetes mellitus without complications
CPT/HCPCS: 99211; G0463

== ENCOUNTER 2021-04-08 16:15 | Emergency (ER) | payer OTHER, SELFPAY ==
--- NOTE | ~2021-04-08 | XR_ITS ---
EXAMINATION: XR shoulder RT min 2V DATE: 04/08/2021 16:43 INDICATION: Right shoulder pain after bending over. TECHNIQUE: AP internally and externally rotated, AP oblique externally rotated and transscapular Y vi ews of the right shoulder were obtained. COMPARISON: None FINDINGS: Normal alignment. No fracture. Glenohumeral joint is normal. Acromioclavicular joint is normal. Soft tissues are unremarkable. Right lung is clear with no focal airspace opacities, pulmonary edema, ple ural effusion or pneumothorax. IMPRESSION: Negative right shoulder radiographs. Reviewed, dictated and finalized at location A.
--- NOTE | 2021-04-08 16:21 | ED.UPPEXIN ---
HPI - Extremity Injury (Upper) General Chief Complaint: Extremity Problem,Nontraumatic Stated Complaint: Right arm pain Time Seen by Provider: 04/08/21 16:21 Source: patient and RN notes reviewed Mode of arrival: ambulatory Limitations: no limitations History of Present Illness HPI narrative: 20-year-old female presents to the [facility] with complaints of right scapula, arm pit and anterior shoulder pain since bending over this am to pick something up. Denies chest pain or shortness of breath. No numbness or tingling in arm. Strong due diligence coordinator, positive radial pulse. Related Data Home Medications Medication Instructions Recorded Confirmed insulin glargine [Lantus U-100 30 unit SUBCUT HS 12/10/20 04/08/21 Insulin] sertraline [Zoloft] 100 mg PO DAILY 12/13/20 04/08/21 [place] 3 Fish Oil 1 mg PO DAILY 02/17/21 Allergies Allergy/AdvReac Type Severity Reaction Status Date / Time No Known Allergies Allergy Verified 04/08/21 16:19 Review of Systems Review of Systems: All systems reviewed & are unremarkable except as noted in HPI and below Constitutional: Constitutional: Reports no additional constitutional complaints, Denies chills and Denies fever(s) Eyes: Eyes: Reports no additional eye complaints ENT: Reports system reviewed and no additional complaints, except as documented Cardiovascular: Cardiovascular: Reports no additional cardiovascular complaints Respiratory: Respiratory: Reports no additional respiratory complaints Musculoskeletal: Musculoskeletal: Reports as per HPI, Reports back pain, Reports arthralgias (Right shoulder) and Denies joint swelling Integumentary/Breasts: Skin/Breast: Reports system reviewed and no additional complaints, except as docu, Denies pruritus, Denies erythema and Denies rash Neurologic: Reports system reviewed and no additional complaints, except as documented Psychiatric: Psychiatric: Reports no additional psychiatric complaints Allergic/Immunologic: Allergic/Immunologic: Reports no additional allergic/immunologic complaints PMF Past Medical History Medical History Depression Heart disease High cholesterol Hx of migraines Ingrown toenail of both feet PCOS (polycystic ovarian syndrome) TMJ (dislocation of temporomandibular joint) Type 2 diabetes mellitus Surgical History Surgical History History of dental surgery History of toe surgery Bilateral for ingrown toenail Family History Family History Other Diabetes mellitus Heart disease Hypertension Social History Social History Smoking status: Never smoker Tobacco type: cigarettes Second hand tobacco smoke exposure: No Alcohol intake: never Substance use: never Substance use type: does not use Gender identity (if verbalized by the patient): Female Comments At the time of my signature, I reviewed and agree with the nursing past medical, surgical, social, and family history. There is no relevant family history pertinent to the patient complaint. Exam Const: General: no acute distress and alert Nutritional Appearance: well nourished and obese Orientation/consciousness: patient oriented x3 Limitations: no limitations HENMT: Head: normal to inspection Neck: Neck: normal visual inspection, no lymphadenopathy and no meningeal signs Chest: Chest palpation & inspection: normal inspection of the chest Resp: Effort & Inspection: normal respiratory effort and no use of accessory muscles Auscultation: clear to auscultation bilaterally, no crackles, no rales, no rhonchi and no wheezes Cardio: Rate: regular rate Rhythm: regular rhythm GI: GI Palp: Yes Soft to palpation and No Tenderness to palpation present (GI) Back/Spine/Pelvis: Back: no CVA tenderness Skin: General skin exam: normal color Rashe
[2021-04-08 16:26] VITALS: BP 119/76; PULSE 102; RESP 18; TEMP 36.4; O2SAT 100
== END 2021-04-08 17:01 | disposition home or self-care (01) ==
PROVIDERS: Emergency Provider Nurse Practitioner; PCP Physician Assistant
DX: S29.011A Strain of muscle and tendon of front wall of thorax, initial encounter (principal); S21.101A Unspecified open wound of right front wall of thorax without penetration into thoracic cavity, initial encounter; X50.9XXA Other and unspecified overexertion or strenuous movements or postures, initial encounter; F32.9 Major depressive disorder, single episode, unspecified; E78.00 Pure hypercholesterolemia, unspecified; E28.2 Polycystic ovarian syndrome; E11.9 Type 2 diabetes mellitus without complications
CPT/HCPCS: 73030; 99213; G0463

== ENCOUNTER 2021-05-07 20:24 | Emergency (ER) | payer OTHER, SELFPAY ==
--- NOTE | ~2021-05-07 | XR_ITS ---
EXAMINATION: XR chest 2V 05/07/2021 23:38 INDICATION: Chest pain PROCEDURE: 2 view chest COMPARISON: 03/11/2021 FINDINGS: The lungs are clear. The cardiomediastinal silhouette is within normal limits. There are no pleural effusions. There is no pneumothorax suspected. IMPRESSION: 1: NO ACUTE CARDIOPULMONARY DISEASE. Reviewed, dictated and finalized at location A.
--- NOTE | ~2021-05-07 | CT_ITS ---
EXAMINATION: CT abdomen pelvis w con DATE: 05/07/2021 23:45 INDICATION: Right lower quadrant pain TECHNIQUE: Computed tomography (CT) of the abdomen and pelvis was performed with 100 cc Omnipaque 350 intravenous contrast. The dose-length product was 1437.28 mGy-cm. Automated exposure control and ite rative reconstruction technique were employed. COMPARISON: None. FINDINGS: Lung bases are unremarkable. Heart size normal. No significant pleural or pericardial effus ion. No significant vascular abnormality. No lymphadenopathy. Fatty infiltration of the liver. The spleen, adrenal glands, pancreas, and kidneys are unremarkable. Gallbladder is present. Nonobstructive bowel gas pattern. Normal appendix. There are follicular loo es in the ovaries. No abnormal pelvic masses or fluid collections. No evidence for diverticulitis. Th ere is an accessory splenule. No free air or free fluid. No acute osseous abnormality. IMPRESSION: 1. No acute abdominal abnormality. Reviewed, dictated and finalized at location A.
[2021-05-07 20:25] VITALS: BP 148/95; PULSE 86; RESP 18; TEMP 36.6; O2SAT 95
[2021-05-07 20:32] LABS: Glucose Point of Care 336 mg/dl (65-105)
--- NOTE | 2021-05-07 21:10 | ECG_ITS ---
Measurements Intervals [place] Rate: 86 P: 17 [place]: 124 QRS: 44 QRSD: 85 T: 35 QT: 344 QTc: 412 Interpretive Statements SINUS RHYTHM NORMAL ECG Electronically Signed On 05-08-2021 6:07:22 CDT by Bogdan Pan D.O.
--- NOTE | 2021-05-07 21:24 | ED.RECABL ---
HPI - Recheck/Abnormal Lab/Rx General Chief Complaint: Recheck/Abnormal Lab/Rx Stated Complaint: DIABETIC ISSUES, ABD PAIN, CP Time Seen by Provider: 05/07/21 20:56 History of Present Illness HPI narrative: Patient presents with elevated blood sugar. Patient reports she was feeling dizzy and had abdominal pain she doctor blood sugar is 500 she gave her self insulin but her blood sugar remained elevated so she called the ambulance and was brought in for evaluation. On arrival to ER she reporting chest pain that is constant, achy, no clear aggravating or alleviating factors. Patient reports she still feels dizzy and has abdominal pain. Abdominal pain is focused in her right lower quadrant. Denies any fevers, nausea, vomiting, diarrhea. Denies any urinary symptoms Related Data Home Medications Medication Instructions Recorded Confirmed insulin glargine [Lantus U-100 30 unit SUBCUT HS 12/10/20 04/08/21 Insulin] sertraline [Zoloft] 100 mg PO DAILY 12/13/20 04/08/21 [place] 3 Fish Oil 1 mg PO DAILY 02/17/21 Allergies Allergy/AdvReac Type Severity Reaction Status Date / Time No Known Allergies Allergy Verified 05/07/21 20:33 Review of Systems Review of Systems: CONSTITUTIONAL: Denies fever, chills, or sweats. EYES: Denies visual changes, redness, or discharge. ENT: Denies rhinorrhea, congestion, sore throat, or otalgia. CARDIOVASCULAR: Denies palpitations, or edema. RESPIRATORY: Denies cough or dyspnea. GASTROINTESTINAL: Denies nausea, vomiting, or diarrhea. GENITOURINARY: Denies dysuria or hematuria. SKIN: Denies rash or itching. MUSCULOSKELETAL: Denies back pain, joint pain, or myalgia. NEUROLOGIC: Denies headache, numbness, or weakness. PSYCHIATRIC: Denies anxiety or depression. All systems reviewed & are unremarkable except as noted in HPI and below PMFSH Past Medical History Medical History Depression Heart disease High cholesterol Hx of migraines Ingrown toenail of both feet PCOS (polycystic ovarian syndrome) TMJ (dislocation of temporomandibular joint) Type 2 diabetes mellitus Surgical History Surgical History History of dental surgery History of toe surgery Bilateral for ingrown toenail Family History Family History Other Diabetes mellitus Heart disease Hypertension Social History Social History Smoking status: Never smoker Tobacco type: cigarettes Second hand tobacco smoke exposure: No Alcohol intake: never Substance use: never Substance use type: does not use Gender identity (if verbalized by the patient): Female Sexual Orientation (if Verbalized by the Patient): Straight or Heterosexual Exam Narrative: GENERAL: Well-appearing, well-nourished, and in no acute distress. HEAD: Normocephalic, atraumatic. EYES: PERRLA and EOMI. ENT: Nares clear, no rhinorrhea or epistaxis. Mucous membranes moist. NECK: Supple. No masses. No JVD CHEST: Clear to auscultation. No respiratory distress. No wheezes rales or rhonchi HEART: Regular rate and rhythm. No murmur heard. Normal peripheral pulses. ABDOMEN: Mild tenderness in the right lower quadrant no rebound or guarding soft, nondistended. EXTREMITIES: Normal range of motion. No edema. SKIN: Warm, dry, no rash. NEURO: No focal deficits. Alert and oriented x3. PSYCH: Normal mood and affect. Course Reevaluation(s) Reevaluation #1: Patient reports feeling much improved results reviewed with patient. With a reassuring work-up she is appropriate for continued outpatient monitoring. Patient comfortable with outpatient plan. Date: 05/08/21 Time: 00:25 Vital Signs Vital signs: Vital Signs Temperature 36.6 C 05/07/21 20:25 Pulse Rate 86 05/07/21 20:25 Respiratory Rate 18 05/07/21 20:25 Blood Pressure 14
[2021-05-07 22:04] LABS: Basophils Percent Auto 0.3 % (0.2-1.2); Eosinophils Percent Auto 0.4 % (0-4.4); Hematocrit 39.9 % (37.0-47.0); Hemoglobin 13.4 g/dL (12.0-15.0); Immature Granulocyte Absolute 0.05 K/mm3 (0.00-0.031); Immature Granulocyte Percent A 0.5 % (0-0.5); Lymphocytes Absolute Auto 4.99 K/mm3 (0.9-3.2); Lymphocytes Percent Auto 45.4 % (18.3-44.2); Mean Corpuscular HGB Conc 33.6 g/dl (32-36); Mean Corpuscular Hemoglobin 29.3 pg (26-34); Mean Corpuscular Volume 87.3 fl (80-100); Monocytes Absolute Auto 0.8 K/mm3 (0.1-0.6); Monocytes Percent Auto 7.6 % (2.6-8.5); Neutrophils Percent Auto 45.8 % (45.5-73.1); Platelet Count Result 356 k/mm3 (150-375); Red Blood Count 4.57 M/mm3 (4.2-5.4); Red Cell Distribution Width 12.5 % (11.5-14.5)
[2021-05-07 22:16] LABS: Lactic Acid Reflex 1.8 mmol/L (0.7-2.1)
[2021-05-07 22:18] LABS: Alanine Aminotransferase 14 U/L (4-35); Albumin Level 4.5 g/dL (3.7-5.6); Alkaline Phosphatase 71 U/L (45-116); Anion Gap 10 mmol/L (8-16); Aspartate Amino Transferase 17 U/L (14-36); Bilirubin,Total 0.4 mg/dL (0.2-1.3); Blood Urea Nitrogen 12 mg/dL (8-21); Carbon Dioxide 27 mmol/L (22-30); Chloride 99 mmol/L (98-107); Estimated CRCL calculation 130 ml/min; Estimated Glomerular Filt Rate > 60; Glucose 238 mg/dL (65-110); Lipase 39 U/L (23-300); Potassium 3.8 mmol/L (3.4-5.0); Sodium 136 mmol/L (134-143)
[2021-05-07 22:29] LABS: Troponin I < 0.012 ng/mL (0.000-0.034)
[2021-05-07] MEDS: SODIUM CHLORIDE 0.9% IV 1,000 ML 999 ML IV CONT (22:34)
--- NOTE | 2021-05-07 22:54 | PC.NURSE ---
THis RN with unstable pt. EKG done as soon as possible.
[2021-05-07 23:18] VITALS: BP 140/78; PULSE 68; RESP 18; O2SAT 100
[2021-05-07 23:48] LABS: Add Urine Microscopic? YES; Appearance Urine Clear (Clear); Bilirubin Urine Negative (Negative); Blood Urine Negative (Negative); Color Urine Straw (Yellow); Glucose Urine UA 3+ mg/dL (Negative); Ketones Urine Negative (Negative); Leukocyte Esterase Ur Negative LEU/UL (Negative); Nitrate Urine Negative (Negative); Protein Urine Negative (Negative); RBC Urine 0-2 /hpf (0-2); Squamous Epithelial Cell Urine Occasional /hpf (Few); Urobilinogen Urine Negative mg/dL (<2.0); WBC Urine 0-3 /hpf
[2021-05-07 23:49] LABS: Specific Grav Ur 1.033 (1.001-1.035)
[2021-05-08 01:49] VITALS: BP 136/75; PULSE 78; RESP 18; O2SAT 100
== END 2021-05-08 01:52 | disposition home or self-care (01) ==
PROVIDERS: Emergency Provider Emergency Medicine; PCP Physician Assistant
DX: R10.31 Right lower quadrant pain (principal); R07.89 Other chest pain; E11.65 Type 2 diabetes mellitus with hyperglycemia; Z79.4 Long term (current) use of insulin; F32.9 Major depressive disorder, single episode, unspecified; E78.5 Hyperlipidemia, unspecified
CPT/HCPCS: 36415; 71046; 74177; 80053; 81001; 81025; 82948; 83605; 83690; 84484; 85025; 93005; 96360; 99284; J7030; Q9967

== ENCOUNTER 2021-05-18 22:32 | Emergency (ER) | payer OTHER, SELFPAY ==
--- NOTE | ~2021-05-18 | CT_ITS ---
EXAMINATION: CT abdomen pelvis wo con DATE: 05/18/2021 23:24 INDICATION: Flank pain TECHNIQUE: Computed tomography (CT) of the abdomen and pelvis was performed without intravenous contr ast. The dose-length product (DLP) was 716.55 mGy-cm. Automated exposure control and iterative recons truction technique were employed. COMPARISON: 05/07/2021 FINDINGS: Minimal dependent atelectasis is present in the lung bases. The heart size is normal. The l iver, spleen, pancreas, gallbladder, and adrenal glands are normal. The kidneys are unremarkable. The re is mild fat stranding surrounding the nondistended right ureter. Circumferential wall thickening o f the urinary bladder is noted. There is no free intraperitoneal gas or evidence of bowel obstruction . No pathologically enlarged abdominal or pelvic lymph nodes are identified. The appendix is normal. IMPRESSION: 1. Wall thickening of the urinary bladder with fat stranding surrounding right ureter. Findings may r eflect cystitis with right-sided urinary tract infection. Reviewed, dictated and finalized at location A. IMPRESSION: 1. Wall thickening of the urinary bladder with fat stranding surrounding right ureter. Findings may reflect cystitis with right-sided urinary tract infection.
[2021-05-18 22:32] VITALS: BP 149/93; PULSE 99; RESP 18; TEMP 36.6; O2SAT 99
[2021-05-18 22:49] LABS: Add Urine Microscopic? YES; Appearance Urine Turbid (Clear); Bacteria Urine 4+ /hpf; Bilirubin Urine Negative (Negative); Blood Urine 3+ (Negative); Color Urine Yellow (Yellow); Glucose Urine UA 2+ mg/dL (Negative); Ketones Urine Negative (Negative); Leukocyte Esterase Ur 3+ LEU/UL (Negative); Mucus Urine Rare /lpf; Nitrate Urine Positive (Negative); Protein Urine 2+ mg/dL (Negative); RBC Urine >75 /hpf (0-2); Specific Grav Ur 1.023 (1.001-1.035); Urobilinogen Urine Negative mg/dL (<2.0); WBC Clumps Urine Present /HPF; WBC Urine >75 /hpf
[2021-05-18 22:54] LABS: Basophils Percent Auto 0.2 % (0.2-1.2); Eosinophils Percent Auto 0.3 % (0-4.4); Hematocrit 40.7 % (37.0-47.0); Hemoglobin 13.6 g/dL (12.0-15.0); Immature Granulocyte Absolute 0.04 K/mm3 (0.00-0.031); Immature Granulocyte Percent A 0.3 % (0-0.5); Lymphocytes Absolute Auto 4.47 K/mm3 (0.9-3.2); Lymphocytes Percent Auto 30.4 % (18.3-44.2); Mean Corpuscular HGB Conc 33.4 g/dl (32-36); Mean Corpuscular Hemoglobin 29.6 pg (26-34); Mean Corpuscular Volume 88.7 fl (80-100); Monocytes Absolute Auto 1.3 K/mm3 (0.1-0.6); Neutrophils Absolute Auto 8.8 K/mm3 (1.3-6.7); Neutrophils Percent Auto 59.8 % (45.5-73.1); Platelet Count Result 337 k/mm3 (150-375); Red Blood Count 4.59 M/mm3 (4.2-5.4); Red Cell Distribution Width 12.6 % (11.5-14.5); White Blood Count 14.7 K/mm3 (4.5-10.0)
[2021-05-18 23:04] LABS: Alanine Aminotransferase 18 U/L (4-35); Albumin Level 4.6 g/dL (3.7-5.6); Alkaline Phosphatase 91 U/L (45-116); Anion Gap 11 mmol/L (8-16); Aspartate Amino Transferase 25 U/L (14-36); Bilirubin,Total 0.8 mg/dL (0.2-1.3); Blood Urea Nitrogen 15 mg/dL (8-21); Calcium 9.6 mg/dL (8.9-10.7); Carbon Dioxide 25 mmol/L (22-30); Chloride 101 mmol/L (98-107); Estimated CRCL calculation 153 ml/min; Estimated Glomerular Filt Rate > 60; Glucose 232 mg/dL (65-110); Lipase 21 U/L (23-300); Potassium 3.9 mmol/L (3.4-5.0); Sodium 137 mmol/L (134-143)
[2021-05-18] MEDS: ONDANSETRON INJ 4 MG/2 ML VIAL IV PUSH (23:04)
[2021-05-18] MEDS: SODIUM CHLORIDE 0.9% IV 1,000 ML 999 ML IV CONT (23:04)
--- NOTE | 2021-05-19 00:21 | ED.GENADULT ---
HPI - General Adult General Chief complaint: Abdominal Pain Stated complaint: lower abd pain, poss uti with symptoms History of Present Illness HPI narrative: Patient 20-year-old female presents the emergency department with chief complaint of abdominal pain. The patient states she has had some urinary frequency and discomfort whenever she urinates and reports has had pain in her back and in her abdomen. Patient reports symptoms are not improved by anything and they are worsened whenever she urinates. The patient reports had nausea with this. Patient denies fever or chills Related Data Home Medications Medication Instructions Recorded Confirmed insulin glargine [Lantus U-100 30 unit SUBCUT HS 12/10/20 04/08/21 Insulin] sertraline [Zoloft] 100 mg PO DAILY 12/13/20 04/08/21 [place] 3 Fish Oil 1 mg PO DAILY 02/17/21 Allergies Allergy/AdvReac Type Severity Reaction Status Date / Time No Known Allergies Allergy Verified 05/18/21 22:38 Review of Systems Review of Systems: A 10 system review of systems was completed on the patient and is negative except for what is stated in the HPI. Nursing and ancillary documentation was reviewed. [facility] Past Medical History Medical History Depression Heart disease High cholesterol Hx of migraines Ingrown toenail of both feet PCOS (polycystic ovarian syndrome) TMJ (dislocation of temporomandibular joint) Type 2 diabetes mellitus Surgical History Surgical History History of dental surgery History of toe surgery Bilateral for ingrown toenail Family History Family History Other Diabetes mellitus Heart disease Hypertension Social History Social History Smoking status: Never smoker Tobacco type: cigarettes Second hand tobacco smoke exposure: No Alcohol intake: never Substance use: never Substance use type: does not use Gender identity (if verbalized by the patient): Female Sexual Orientation (if Verbalized by the Patient): Straight or Heterosexual Exam Narrative: GENERAL: Well-appearing, well-nourished, and in no acute distress. HEAD: Normocephalic, atraumatic. EYES: PERRLA and EOMI. ENT: Nares clear, no rhinorrhea or epistaxis. Mucous membranes moist. NECK: Supple. CHEST: Clear to auscultation. No respiratory distress. HEART: Regular rate and rhythm. No murmur heard. Normal peripheral pulses. ABDOMEN: Soft, diffuse tenderness to palpation, nondistended, normal active bowel sounds. EXTREMITIES: Normal range of motion. No edema. SKIN: Warm, dry, no rash. NEURO: No focal deficits. Alert and oriented x3. PSYCH: Normal mood and affect. Course Vital Signs Vital signs: Vital Signs Temperature 36.6 C 05/18/21 22:32 Pulse Rate 99 05/18/21 22:32 Respiratory Rate 18 05/18/21 22:32 Blood Pressure 149/93 H 05/18/21 22:32 Pulse Oximetry 99 05/18/21 22:32 Temperature 36.6 C 05/18/21 22:32 Pulse Rate 77 05/19/21 02:38 Respiratory Rate 18 05/19/21 02:38 Blood Pressure 148/86 H 05/19/21 02:38 Pulse Oximetry 100 05/19/21 02:38 Medical Decision Making Vital Signs Vital Signs: Vital Signs Temperature 36.6 C 05/18/21 22:32 Pulse Rate 99 05/18/21 22:32 Respiratory Rate 18 05/18/21 22:32 Blood Pressure 149/93 H 05/18/21 22:32 Pulse Oximetry 99 05/18/21 22:32 Temperature 36.6 C 05/18/21 22:32 Pulse Rate 77 05/19/21 02:38 Respiratory Rate 18 05/19/21 02:38 Blood Pressure 148/86 H 05/19/21 02:38 Pulse Oximetry 100 05/19/21 02:38 Lab Data Result diagrams: 05/18/21 22:48 05/18/21 22:48 Labs: Lab Results 05/18/21 05/18/21 05/18/21 Range/Units 22:39 22:48 22:48 WBC 14.7 H (4.5-10.0) K/mm3 RBC
[2021-05-19] MEDS: MORPHINE SULFATE (*CRX) 4 MG/ML INJ IV PUSH (02:00)
[2021-05-19] MEDS: KETOROLAC 30 MG/ML VIAL (*BKC) IV PUSH (02:00)
[2021-05-19 02:38] VITALS: BP 148/86; PULSE 77; RESP 18; O2SAT 100
[2021-05-19 02:57] VITALS: BP 146/80; PULSE 82; RESP 18; O2SAT 100
== END 2021-05-19 03:03 | disposition home or self-care (01) ==
PROVIDERS: Emergency Provider Emergency Medicine; PCP Physician Assistant
DX: N10 Acute pyelonephritis (principal)
CPT/HCPCS: 36415; 74176; 80053; 81001; 81025; 83690; 85025; 87077; 87086; 87088; 87186; 96361; 96365; 96374; 96375; 99284; J0696; J1885; J2270; J2405; J7030

== ENCOUNTER 2021-06-05 06:59 | Emergency (ER) | payer OTHER, SELFPAY ==
--- NOTE | ~2021-06-05 | CT_ITS ---
EXAMINATION: CT abdomen pelvis w con DATE: 06/05/2021 08:59 INDICATION: Right lower quadrant abdominal pain. Right flank pain. Nausea. TECHNIQUE: Computed tomography (CT) of the abdomen and pelvis was performed with 100 mL Omnipaque 350 intravenous contrast. Automated exposure control and iterative reconstruction technique were employe d. The dose-length product was 1407.52 mGy-cm. COMPARISON: CT abdomen and pelvis 05/18/2021 FINDINGS: The visualized portions of the lung bases are clear without pneumonia or pleural effusion. The heart size is normal. No pericardial effusion. The liver, gallbladder, spleen, pancreas, adrenal glands, and kidneys are normal. There are no dilated loops of bowel. The appendix contains appendicol iths, but is otherwise normal. There are no pathologically enlarged lymph nodes. There is no free int raperitoneal fluid. The uterus and ovaries are unremarkable. The bones are unremarkable. IMPRESSION: 1. No specific etiology for the patient's symptoms. Reviewed, dictated and finalized at location A.
[2021-06-05 07:03] VITALS: BP 120/64; PULSE 99; RESP 20; TEMP 36.7; O2SAT 99
--- NOTE | 2021-06-05 07:33 | ED.ABDPAIN ---
HPI - Abdominal Pain General Chief Complaint: Abdominal Pain Stated Complaint: Belly pain Time Seen by Provider: 06/05/21 07:12 Source: patient, RN notes reviewed and old records reviewed Mode of arrival: ambulatory Limitations: no limitations History of Present Illness HPI narrative: This is a 20 year old female with history of Bipolar, DM who presents for evaluation of possible kidney infection. She states she was evaluated for similar pain 2-3 weeks ago, and she was diagnosed with kidney infection. She reports she completed her course of antibiotics and her pain resolved. She had a return of right lower abdominal pain 2 days ago. She has constant right lower abdominal pain that radiates to her right lower back. She also has associated nausea and vomiting. She denies hematuria or dysuria. She also denies fever or chills. She has not taken any medication for her symptoms today. Related Data Home Medications Medication Instructions Recorded Confirmed insulin glargine [Lantus U-100 30 unit SUBCUT HS 12/10/20 04/08/21 Insulin] sertraline [Zoloft] 100 mg PO DAILY 12/13/20 04/08/21 [place] 3 Fish Oil 1 mg PO DAILY 02/17/21 Allergies Allergy/AdvReac Type Severity Reaction Status Date / Time No Known Allergies Allergy Verified 06/05/21 07:26 Review of Systems Review of Systems: All systems reviewed & are unremarkable except as noted in HPI and below PMFSH Past Medical History Medical History Depression Heart disease High cholesterol Hx of migraines Ingrown toenail of both feet PCOS (polycystic ovarian syndrome) TMJ (dislocation of temporomandibular joint) Type 2 diabetes mellitus Surgical History Surgical History History of dental surgery History of toe surgery Bilateral for ingrown toenail Family History Family History Other Diabetes mellitus Heart disease Hypertension Social History Social History Smoking status: Never smoker Tobacco type: cigarettes Second hand tobacco smoke exposure: No Alcohol intake: never Substance use: never Substance use type: does not use Gender identity (if verbalized by the patient): Female Sexual Orientation (if Verbalized by the Patient): Straight or Heterosexual Exam Const: General: no acute distress and alert Orientation/consciousness: patient oriented x3 HENMT: Head: normocephalic and atraumatic Face and sinus: face symmetric Mouth: Yes Normal oral and palatal mucosa present, Yes lip normal, Yes oropharynx normal and Yes moist mucous membranes Eyes: EOM: EOMs intact bilaterally Chest: Chest palpation & inspection: normal inspection of the chest Resp: Effort & Inspection: normal respiratory effort Auscultation: clear to auscultation bilaterally Cardio: Rate: regular rate Rhythm: regular rhythm Heart sounds: no murmurs GI: GI Palp: Yes Soft to palpation, Yes Tenderness to palpation present (GI) (bilateral lower quadrant), No Guarding due to palpation present (GI) and No Rigid due to palpation Auscultation: normal bowel sounds Back/Spine/Pelvis: Back: no CVA tenderness Skin: General skin exam: normal color Rashes: no rashes Neuro: General: patient oriented x3, moves all extremities and CN's II-XI intact bilaterally Psych: Mental Status: mental status grossly normal Affect: normal affect Course Reevaluation(s) Reevaluation #1: I discussed with patient labs show abnormal UA but otherwise unremarkable. CT was unremarkable as well. PAtient is resting comfortably and she does not appear to be in acute pain or distress. I Discussed discharge plan and treatment. Date: 06/05/21 Time: 09:43 Vital Signs Vital signs: Vital Signs Temperature 98.0 F 06/05/21 07:03 Pulse Rate 99 06/05/21 07:03 Resp
[2021-06-05 07:50] LABS: Glucose Point of Care 246 mg/dl (65-105)
[2021-06-05] MEDS: ONDANSETRON INJ 4 MG/2 ML VIAL IV PUSH (07:57)
[2021-06-05 08:06] LABS: Add Urine Microscopic? YES; Appearance Urine Clear (Clear); Bilirubin Urine Negative (Negative); Blood Urine Negative (Negative); Color Urine Colorless (Yellow); Glucose Urine UA 3+ mg/dL (Negative); Ketones Urine Negative (Negative); Leukocyte Esterase Ur Trace LEU/UL (Negative); Mucus Urine Rare /lpf; Nitrate Urine Negative (Negative); Protein Urine Negative (Negative); RBC Urine 0-2 /hpf (0-2); Specific Grav Ur 1.005 (1.001-1.035); Squamous Epithelial Cell Urine Few /hpf (Few); Urobilinogen Urine Negative mg/dL (<2.0)
[2021-06-05 08:12] LABS: Basophils Percent Auto 0.4 % (0.2-1.2); Eosinophils Absolute Auto 0.1 K/mm3 (0-0.3); Eosinophils Percent Auto 0.7 % (0-4.4); Hematocrit 40.7 % (37.0-47.0); Hemoglobin 13.7 g/dL (12.0-15.0); Immature Granulocyte Absolute 0.06 K/mm3 (0.00-0.031); Immature Granulocyte Percent A 0.6 % (0-0.5); Lymphocytes Absolute Auto 4.77 K/mm3 (0.9-3.2); Mean Corpuscular HGB Conc 33.7 g/dl (32-36); Mean Corpuscular Hemoglobin 29.5 pg (26-34); Mean Corpuscular Volume 87.7 fl (80-100); Mean Platelet Volume 9.9 fl (7.4-10.4); Monocytes Absolute Auto 0.6 K/mm3 (0.1-0.6); Monocytes Percent Auto 5.9 % (2.6-8.5); Neutrophils Absolute Auto 4.4 K/mm3 (1.3-6.7); Neutrophils Percent Auto 44.4 % (45.5-73.1); Platelet Count Result 381 k/mm3 (150-375); Red Blood Count 4.64 M/mm3 (4.2-5.4); Red Cell Distribution Width 12.2 % (11.5-14.5); White Blood Count 9.9 K/mm3 (4.5-10.0)
[2021-06-05 08:16] VITALS: BP 119/74; PULSE 87; RESP 18; O2SAT 100
[2021-06-05 08:17] LABS: Alanine Aminotransferase 16 U/L (4-35); Albumin Level 4.8 g/dL (3.7-5.6); Alkaline Phosphatase 74 U/L (45-116); Anion Gap 9 mmol/L (8-16); Aspartate Amino Transferase 19 U/L (14-36); Bilirubin,Total 0.4 mg/dL (0.2-1.3); Blood Urea Nitrogen 11 mg/dL (8-21); Calcium 9.4 mg/dL (8.9-10.7); Carbon Dioxide 27 mmol/L (22-30); Chloride 101 mmol/L (98-107); Estimated CRCL calculation 153 ml/min; Estimated Glomerular Filt Rate > 60; Glucose 249 mg/dL (65-110); Lipase 47 U/L (23-300); Potassium 3.8 mmol/L (3.4-5.0); Sodium 137 mmol/L (134-143)
[2021-06-05 10:05] VITALS: BP 124/98; PULSE 98; RESP 18; O2SAT 99
== END 2021-06-05 10:07 | disposition home or self-care (01) ==
PROVIDERS: Emergency Provider General Practice; PCP Physician Assistant
DX: N39.0 Urinary tract infection, site not specified (principal); R10.9 Unspecified abdominal pain; E11.65 Type 2 diabetes mellitus with hyperglycemia; Z79.4 Long term (current) use of insulin; F32.9 Major depressive disorder, single episode, unspecified; E78.5 Hyperlipidemia, unspecified
CPT/HCPCS: 36415; 74177; 80053; 81001; 81025; 82948; 83690; 85025; 96365; 96375; 99284; J0131; J2405; Q9967

== ENCOUNTER 2021-06-06 17:25 | Emergency (ER) | payer OTHER, SELFPAY ==
--- NOTE | ~2021-06-06 | XR_ITS ---
EXAMINATION: XR abdomen obstructive series EXAM DATE: 06/06/2021 19:00 INDICATION: RLQ ABDOMINAL PAIN X 1 WK, N/V/D TECHNIQUE: Frontal upright projection of the upper abdomen, frontal projection of the lower abdomen f or interpretation. There is no prior study for comparison. FINDINGS: There is expected amount of colonic stool and gas. No small bowel dilation, nonobstruct janene bowel gas pattern. There are no suspicious calcifications identified. There is no organomegal y suspected. The bones are unremarkable. There is no free intraperitoneal air. The lung bases ar e clear. IMPRESSION: Unremarkable abdomen x-ray exam. Reviewed, dictated and finalized at location G.
[2021-06-06 17:28] VITALS: BP 134/78; PULSE 119; RESP 18; TEMP 37.1; O2SAT 99
--- NOTE | 2021-06-06 17:43 | ED.ABDPAIN ---
HPI - Abdominal Pain General Chief Complaint: Abdominal Pain Stated Complaint: uti/abd pain/diarrhea Time Seen by Provider: 06/06/21 17:38 Source: RN notes reviewed History of Present Illness HPI narrative: Patient presents emergency department from home via EMS for nausea vomiting. Patient states she has had nausea and vomiting today been associate with abdominal pain described as cramping in the bilateral lower abdomen. Patient is also stating that she has had several episodes of diarrhea today but is had dark blood in her stool she denies any fevers or chills chest pain shortness of breath or any other symptoms. She states she did not take anything for the symptoms at home Related Data Home Medications Medication Instructions Recorded Confirmed insulin glargine [Lantus U-100 30 unit SUBCUT HS 12/10/20 04/08/21 Insulin] sertraline [Zoloft] 100 mg PO DAILY 12/13/20 04/08/21 [place] 3 Fish Oil 1 mg PO DAILY 02/17/21 Allergies Allergy/AdvReac Type Severity Reaction Status Date / Time No Known Allergies Allergy Verified 06/05/21 07:26 Review of Systems Review of Systems: Gen.: Denies fevers or chills ENT: Denies congestion Respiratory: Denies shortness of breath or cough CV: Denies chest pain or palpitations GI: See HPI denies burning, urgency, frequency or hematuria Musculoskeletal: Denies back pain or muscle pain Neuro: Denies numbness, tingling, weakness or focal weakness Skin: Denies rash Except as documented, all other systems reviewed and negative PMFSH Past Medical History Medical History Depression Heart disease High cholesterol Hx of migraines Ingrown toenail of both feet PCOS (polycystic ovarian syndrome) TMJ (dislocation of temporomandibular joint) Type 2 diabetes mellitus Surgical History Surgical History History of dental surgery History of toe surgery Bilateral for ingrown toenail Family History Family History Other Diabetes mellitus Heart disease Hypertension Social History Social History Smoking status: Never smoker Tobacco type: cigarettes Second hand tobacco smoke exposure: No Alcohol intake: never Substance use: never Substance use type: does not use Gender identity (if verbalized by the patient): Female Sexual Orientation (if Verbalized by the Patient): Straight or Heterosexual Exam Narrative: APPEARANCE: No acute distress, nontoxic, resting in bed HEENT: Normocephalic, atraumatic, OMM RESPIRATORY: No respiratory distress, clear to auscultation bilaterally with no rhonchi wheezing or rales CARDIOVASCULAR: RRR s murmur ABDOMINAL: Soft nondistended diffusely tender to palpation no rebound or guarding Rectal: No hemorrhoids or fissures small amount of soft brown stool that is Hemoccult negative MUSCULOSKELETAl: Moves all extremities. No clubbing, cyanosis or edema. NEURO: Awake and alert. Following commands, speech normal, no focal deficits SKIN:: Warm, dry. Normal Color PSYCHIATRIC: Normal affect/mood Course Course Emergency Course: Reviewed old records patient's been seen for abdominal pain several times for the past month the patient is had [address] scans over the past month and a half with most recent CT scan yesterday showed no acute process Discussed with patient her recurrent nausea vomiting she states she does have Zofran at home that she takes she states she has not seen a GI physician I discussed with the patient following up with GI I also discussed patient's current blood sugar she states she is due to take her insulin when she returns home and states that she has been taking it well patient go home and take her normal insulin Patient states that they are feeling much better at this time. States abdominal pain has im
[2021-06-06 18:18] LABS: Basophils Percent Auto 0.4 % (0.2-1.2); Eosinophils Percent Auto 0.4 % (0-4.4); Hematocrit 39.5 % (37.0-47.0); Hemoglobin 13.1 g/dL (12.0-15.0); Immature Granulocyte Absolute 0.04 K/mm3 (0.00-0.031); Immature Granulocyte Percent A 0.4 % (0-0.5); Lymphocytes Absolute Auto 3.45 K/mm3 (0.9-3.2); Lymphocytes Percent Auto 35.5 % (18.3-44.2); Mean Corpuscular HGB Conc 33.2 g/dl (32-36); Mean Corpuscular Hemoglobin 29.6 pg (26-34); Mean Corpuscular Volume 89.2 fl (80-100); Mean Platelet Volume 10.1 fl (7.4-10.4); Monocytes Absolute Auto 0.6 K/mm3 (0.1-0.6); Monocytes Percent Auto 6.3 % (2.6-8.5); Neutrophils Absolute Auto 5.6 K/mm3 (1.3-6.7); Platelet Count Result 351 k/mm3 (150-375); Red Blood Count 4.43 M/mm3 (4.2-5.4); Red Cell Distribution Width 12.3 % (11.5-14.5); White Blood Count 9.7 K/mm3 (4.5-10.0)
[2021-06-06] MEDS: SODIUM CHLORIDE 0.9% IV 1,000 ML 999 ML IV CONT ×2 (18:18)
[2021-06-06 18:21] LABS: Add Urine Microscopic? YES; Appearance Urine Clear (Clear); Bilirubin Urine Negative (Negative); Blood Urine Negative (Negative); Color Urine Straw (Yellow); Glucose Urine UA 3+ mg/dL (Negative); Ketones Urine Negative (Negative); Leukocyte Esterase Ur Negative LEU/UL (Negative); Nitrate Urine Negative (Negative); Protein Urine Negative (Negative); RBC Urine 0-2 /hpf (0-2); Squamous Epithelial Cell Urine Few /hpf (Few); Urobilinogen Urine Negative mg/dL (<2.0)
[2021-06-06 18:31] LABS: INR 0.9; Prothrombin Time 12.1 Seconds (11.1-14.7)
[2021-06-06 18:32] LABS: Partial Thromboplastin Time 22.8 SECONDS (22.3-36.8)
[2021-06-06 18:40] LABS: Lactic Acid Reflex 2.1 mmol/L (0.7-2.1)
[2021-06-06 18:41] LABS: Alanine Aminotransferase 17 U/L (4-35); Albumin Level 4.7 g/dL (3.7-5.6); Alkaline Phosphatase 76 U/L (45-116); Anion Gap 8 mmol/L (8-16); Aspartate Amino Transferase 17 U/L (14-36); Bilirubin,Total 0.1 mg/dL (0.2-1.3); Blood Urea Nitrogen 16 mg/dL (8-21); Calcium 9.6 mg/dL (8.9-10.7); Carbon Dioxide 29 mmol/L (22-30); Chloride 99 mmol/L (98-107); Estimated CRCL calculation 131 ml/min; Estimated Glomerular Filt Rate > 60; Glucose 397 mg/dL (65-110); Lipase 82 U/L (23-300); Potassium 4.3 mmol/L (3.4-5.0); Sodium 136 mmol/L (134-143)
[2021-06-06 18:46] LABS: Specific Grav Ur 1.032 (1.001-1.035)
[2021-06-06 18:48] VITALS: TEMP 37.1
[2021-06-06 19:30] LABS: Glucose Point of Care 348 mg/dl (65-105)
[2021-06-06 20:41] VITALS: BP 105/78; PULSE 86; RESP 18; TEMP 37.1; O2SAT 97
[2021-06-06 21:16] LABS: Reflex Lactic Acid Yes or No Add Lactic
--- NOTE | 2021-06-26 13:11 | PC.NURSE ---
LATE ENTRY This note is being entered to document information to the patient's record. The following information was omitted on [06/06/2021], by [Faith Rm RN]. NS stop time is 1920pm
== END 2021-06-06 20:43 | disposition home or self-care (01) ==
PROVIDERS: Emergency Provider Emergency Medicine; PCP Physician Assistant
DX: R11.2 Nausea with vomiting, unspecified (principal); R19.7 Diarrhea, unspecified; R10.9 Unspecified abdominal pain; E11.9 Type 2 diabetes mellitus without complications; E78.00 Pure hypercholesterolemia, unspecified; I51.9 Heart disease, unspecified; E28.2 Polycystic ovarian syndrome; F32.A Depression, unspecified; Z79.4 Long term (current) use of insulin
CPT/HCPCS: 36415; 74019; 80053; 81001; 81025; 82948; 83605; 83690; 85025; 85610; 85730; 96361; 96374; 99284; J0131; J7030

== ENCOUNTER 2021-08-24 19:17 | Emergency (ER) | payer OTHER, SELFPAY ==
[2021-08-24 19:22] VITALS: BP 147/94; PULSE 113; RESP 20; TEMP 36.9; O2SAT 96
[2021-08-24 19:27] LABS: Glucose Point of Care 446 mg/dl (65-105)
[2021-08-24] MEDS: SODIUM CHLORIDE 0.9% IV 1,000 ML 999 ML IV CONT ×2 (20:49→21:11)
[2021-08-24] MEDS: ONDANSETRON INJ 4 MG/2 ML VIAL IV PUSH (20:49)
--- NOTE | 2021-08-24 20:49 | PC.NURSE ---
Called lab and spoke to Markos about adding on Beta Hydroxybut
[2021-08-24 20:50] LABS: Basophils Percent Auto 0.3 % (0.2-1.2); Eosinophils Percent Auto 0.4 % (0-4.4); Hematocrit 43.4 % (37.0-47.0); Hemoglobin 15.2 g/dL (12.0-15.0); Immature Granulocyte Absolute 0.04 K/mm3 (0.00-0.031); Immature Granulocyte Percent A 0.4 % (0-0.5); Lymphocytes Absolute Auto 4.55 K/mm3 (0.9-3.2); Lymphocytes Percent Auto 47.5 % (18.3-44.2); Mean Corpuscular Hemoglobin 29.7 pg (26-34); Mean Corpuscular Volume 84.8 fl (80-100); Mean Platelet Volume 10.1 fl (7.4-10.4); Monocytes Absolute Auto 0.6 K/mm3 (0.1-0.6); Monocytes Percent Auto 6.2 % (2.6-8.5); Neutrophils Absolute Auto 4.3 K/mm3 (1.3-6.7); Neutrophils Percent Auto 45.2 % (45.5-73.1); Platelet Count Result 347 k/mm3 (150-375); Red Blood Count 5.12 M/mm3 (4.2-5.4); Red Cell Distribution Width 12.4 % (11.5-14.5); White Blood Count 9.6 K/mm3 (4.5-10.0)
--- NOTE | 2021-08-24 21:00 | PC.NURSE ---
pt states that she has been so depressed for the last 2-3wks that she has not been checking her BG at home, only taking Lantus at night instead of BID and not taking sliding scale at all. has not been wanting to get out of bed at all. pt very tearful while speaking to RN
[2021-08-24 21:02] LABS: Alanine Aminotransferase 20 U/L (4-35); Albumin Level 4.8 g/dL (3.7-5.6); Alkaline Phosphatase 108 U/L (45-116); Anion Gap 8 mmol/L (8-16); Aspartate Amino Transferase 21 U/L (14-36); Bilirubin,Total 0.4 mg/dL (0.2-1.3); Blood Urea Nitrogen 10 mg/dL (8-21); Calcium 9.8 mg/dL (8.9-10.7); Carbon Dioxide 23 mmol/L (22-30); Chloride 98 mmol/L (98-107); Estimated CRCL calculation 181 ml/min; Estimated Glomerular Filt Rate > 60; Glucose 440 mg/dL (65-110); Sodium 129 mmol/L (134-143)
[2021-08-24 21:11] LABS: Beta-Hydroxybutyrate/Acetoacetate 0.16 mmol/L (0.02-0.27)
[2021-08-24 21:15] LABS: Add Urine Microscopic? YES; Appearance Urine Clear (Clear); Bilirubin Urine Negative (Negative); Blood Urine Negative (Negative); Color Urine Straw (Yellow); Glucose Urine UA 3+ mg/dL (Negative); Ketones Urine Negative (Negative); Leukocyte Esterase Ur Negative LEU/UL (Negative); Mucus Urine Rare /lpf; Nitrate Urine Negative (Negative); Protein Urine Negative (Negative); Squamous Epithelial Cell Urine Occasional /hpf (Few); Urobilinogen Urine Negative mg/dL (<2.0); WBC Urine 0-3 /hpf
[2021-08-24 21:23] LABS: Specific Grav Ur 1.037 (1.001-1.035)
--- NOTE | 2021-08-24 22:02 | ED.GENADULT ---
HPI - General Adult General Chief complaint: Recheck/Abnormal Lab/Rx Stated complaint: diabetes and high blood sugar Time Seen by Provider: 08/24/21 20:15 History of Present Illness HPI narrative: Patient is a 20-year-old female who presents to the ER with elevated blood sugars. She reports she has not been taking her long-acting insulin over the last couple days. She had not been checking her blood sugars previous to this. She reports she has not been taking her medication because she is depressed and has no other reason. She denies any new stressors in her life. She reports compliance with her depression medication. She has no thoughts of suicidal ideation or harm towards others. She has a psychiatrist that she has scheduled follow-up with in October. She had seen her psychiatrist earlier this month. Patient reports she has had some nausea and a typical headache. Related Data Home Medications Medication Instructions Recorded Confirmed insulin glargine [Lantus U-100 30 unit SUBCUT HS 12/10/20 04/08/21 Insulin] sertraline [Zoloft] 100 mg PO DAILY 12/13/20 04/08/21 [place] 3 Fish Oil 1 mg PO DAILY 02/17/21 Allergies Allergy/AdvReac Type Severity Reaction Status Date / Time No Known Allergies Allergy Verified 08/24/21 19:25 Review of Systems Review of Systems: All systems reviewed & are unremarkable except as noted in HPI and below Constitutional: Constitutional: Denies chills, Denies fever(s) and Denies weakness ENT: Denies nasal congestion and Denies sore throat Gastrointestinal: Gastrointestinal: Denies abdominal pain, Reports diarrhea (Chronic from Metformin), Reports nausea and Reports vomiting Neurologic: Reports headache(s), Denies focal weakness and Denies numbness Psychiatric: Psychiatric: Denies anxiety, Reports depression, Denies homicidal ideation and Denies suicidal ideation [facility] Past Medical History Medical History Depression Heart disease High cholesterol Hx of migraines Ingrown toenail of both feet PCOS (polycystic ovarian syndrome) TMJ (dislocation of temporomandibular joint) Type 2 diabetes mellitus Surgical History Surgical History History of dental surgery History of toe surgery Bilateral for ingrown toenail Family History Family History Other Diabetes mellitus Heart disease Hypertension Social History Social History Smoking status: Never smoker Tobacco type: cigarettes Second hand tobacco smoke exposure: No Alcohol intake: never Substance use: never Substance use type: does not use Gender identity (if verbalized by the patient): Female Sexual Orientation (if Verbalized by the Patient): Straight or Heterosexual Exam Narrative: GENERAL: Well-appearing, well-nourished, and in no acute distress. HEAD: Normocephalic, atraumatic. ENT: Mucous membranes moist. CHEST: Clear to auscultation. No respiratory distress. HEART: Tachycardic and regular. Normal peripheral pulses. ABDOMEN: Soft, nontender, nondistended. EXTREMITIES: Normal range of motion. No edema. SKIN: Warm, dry, no rash. NEURO: Alert and oriented x3. PSYCH: Depressed mood with flat affect. No SI or HI. Course Course Emergency Course: Patient with hyperglycemia is related to noncompliance. Hydrated and given antiemetics. Educated on importance of compliance with home medications. Patient does have depression but is not suicidal. Encouraged her to contact her psychiatrist for further evaluation. Vital Signs Vital signs: Vital Signs Temperature 98.5 F 08/24/21 19:22 Pulse Rate 113 H 08/24/21 19:22 Respiratory Rate 20 08/24/21 19:22 Blood Pressure 147/94 H 08/24/21 19:22 Pulse Oximetry 96 08/24/21 19:22 Temperature 98.5 F 08/24/21 19
[2021-08-24] MEDS: KETOROLAC 30 MG/ML VIAL (*BKC) IV PUSH (22:31)
[2021-08-24 23:24] VITALS: BP 139/90; PULSE 93; RESP 17; O2SAT 99
[2021-08-24 23:25] LABS: Glucose Point of Care 318 mg/dl (65-105)
== END 2021-08-25 00:45 | disposition home or self-care (01) ==
PROVIDERS: Nurse Practitioner; Emergency Provider Emergency Medicine; PCP Physician Assistant
DX: E11.65 Type 2 diabetes mellitus with hyperglycemia (principal); F32.A Depression, unspecified; R11.0 Nausea; Z91.14 Patient's other noncompliance with medication regimen; E78.00 Pure hypercholesterolemia, unspecified; I51.9 Heart disease, unspecified; E28.2 Polycystic ovarian syndrome; Z79.4 Long term (current) use of insulin
CPT/HCPCS: 36415; 80053; 81001; 81025; 82010; 82948; 85025; 96361; 96374; 96375; 99284; J1885; J2405; J7030

== ENCOUNTER 2021-09-09 21:07 | Emergency (ER) | payer OTHER, SELFPAY ==
[2021-09-09] VITALS (8 sets, daily range): BP systolic 104–129; BP diastolic 59–76; PULSE 93–116; RESP 13–23; TEMP 36.4; O2SAT 97–100
--- NOTE | ~2021-09-09 | XR_ITS ---
EXAMINATION: XR chest 1V portable INDICATION: Midsternal chest pain, lightheadedness TECHNIQUE: Portable AP chest at 2248 hours COMPARISON: 05/07/2021 FINDINGS: There are patchy opacities of the lung bases. No pleural effusion or pneumothorax is identi fied. The cardiomediastinal silhouette is normal. IMPRESSION: 1. Bibasilar airspace opacities, likely pneumonia. Reviewed, dictated and finalized at location F. E RIDE OPERATOR
--- NOTE | 2021-09-09 21:09 | ECG_ITS ---
Measurements Intervals [place] Rate: 103 P: 48 DC: 139 QRS: 56 QRSD: 88 T: 50 QT: 328 QTc: 431 Interpretive Statements SINUS TACHYCARDIA BORDERLINE ECG Electronically Signed On 09-10-2021 6:00:20 [employer] by Bogdan Pan D.O.
--- NOTE | 2021-09-09 21:21 | PC.NURSE ---
States self harm attempt was when I was really young
--- NOTE | 2021-09-09 22:41 | ED.GENADULT ---
HPI - General Adult General Chief complaint: Chest Pain Stated complaint: CHEST PAIN LIGHTHEADED Time Seen by Provider: 09/09/21 22:27 History of Present Illness HPI narrative: Patient is a 20-year-old female who presents the emergency department with chief complaint of chest pain. Patient reports that she started having pain in her chest this afternoon reports that it is a tightness feeling reports that it then radiates to the left upper quadrant. The patient states that the pain is not worsened by anything nor is it improved by anything patient reports that she has history of a strange heartbeat whenever she was a child but has not personally had any cardiac disease she is a insulin-dependent diabetic. Patient reports her blood sugars have been running in the 150s. Patient reports she has been vaccinated for COVID-19 denies any fever chills cough runny nose or sore throat. The patient reports she does have family history for cardiac disease and has had multiple family members who have had bypasses. Related Data Home Medications Medication Instructions Recorded Confirmed insulin glargine [Lantus U-100 30 unit SUBCUT HS 12/10/20 04/08/21 Insulin] sertraline [Zoloft] 100 mg PO DAILY 12/13/20 04/08/21 [place] 3 Fish Oil 1 mg PO DAILY 02/17/21 Allergies Allergy/AdvReac Type Severity Reaction Status Date / Time No Known Allergies Allergy Verified 08/24/21 19:25 Review of Systems Review of Systems: A 10 system review of systems was completed on the patient and is negative except for what is stated in the HPI. Nursing and ancillary documentation was reviewed. [facility] Past Medical History Medical History Depression Heart disease High cholesterol Hx of migraines Ingrown toenail of both feet PCOS (polycystic ovarian syndrome) TMJ (dislocation of temporomandibular joint) Type 2 diabetes mellitus Surgical History Surgical History History of dental surgery History of toe surgery Bilateral for ingrown toenail Family History Family History Other Diabetes mellitus Heart disease Hypertension Social History Social History Smoking status: Never smoker Tobacco type: cigarettes Second hand tobacco smoke exposure: No Alcohol intake: never Substance use: never Substance use type: does not use Gender identity (if verbalized by the patient): Female Sexual Orientation (if Verbalized by the Patient): Straight or Heterosexual Exam Narrative: GENERAL: Well-appearing, well-nourished, and in no acute distress. HEAD: Normocephalic, atraumatic. EYES: PERRLA and EOMI. ENT: Nares clear, no rhinorrhea or epistaxis. Mucous membranes moist. NECK: Supple. CHEST: Clear to auscultation. No respiratory distress. Chest wall is tender to palpation of the left-sternal border reproducing the patient's pain HEART: Regular rate and rhythm. No murmur heard. Normal peripheral pulses. ABDOMEN: Soft, nontender, nondistended, normal active bowel sounds. EXTREMITIES: Normal range of motion. No edema. SKIN: Warm, dry, no rash. NEURO: No focal deficits. Alert and oriented x3. PSYCH: Normal mood and affect. Course Course Emergency Course: EKG is sinus tachycardia rate [address] elevation or ST depression Vital Signs Vital signs: Vital Signs Temperature 36.4 C 09/09/21 21:16 Pulse Rate 97 09/09/21 21:16 Respiratory Rate 16 09/09/21 21:16 Blood Pressure 104/59 L 09/09/21 21:16 Pulse Oximetry 100 09/09/21 21:16 Temperature 36.4 C 09/09/21 21:16 Pulse Rate 113 H 09/09/21 22:31 Respiratory Rate 17 09/09/21 22:31 Blood Pressure 129/76 09/09/21 22:31 Pulse Oximetry 97 09/09/21 22:31 Medical Decision Making Vital Signs Vital Signs: Vital S
[2021-09-09 23:00] LABS: Basophils Percent Auto 0.4 % (0.2-1.2); Eosinophils Absolute Auto 0.1 K/mm3 (0-0.3); Eosinophils Percent Auto 0.5 % (0-4.4); Hematocrit 41.6 % (37.0-47.0); Hemoglobin 14.1 g/dL (12.0-15.0); Immature Granulocyte Absolute 0.02 K/mm3 (0.00-0.031); Immature Granulocyte Percent A 0.2 % (0-0.5); Lymphocytes Absolute Auto 5.17 K/mm3 (0.9-3.2); Lymphocytes Percent Auto 46.9 % (18.3-44.2); Mean Corpuscular HGB Conc 33.9 g/dl (32-36); Mean Corpuscular Hemoglobin 29.6 pg (26-34); Mean Corpuscular Volume 87.4 fl (80-100); Mean Platelet Volume 9.8 fl (7.4-10.4); Monocytes Absolute Auto 0.7 K/mm3 (0.1-0.6); Monocytes Percent Auto 6.5 % (2.6-8.5); Neutrophils Percent Auto 45.5 % (45.5-73.1); Platelet Count Result 331 k/mm3 (150-375); Red Blood Count 4.76 M/mm3 (4.2-5.4); Red Cell Distribution Width 12.2 % (11.5-14.5)
[2021-09-09 23:11] LABS: Alanine Aminotransferase 20 U/L (4-35); Albumin Level 4.5 g/dL (3.7-5.6); Alkaline Phosphatase 91 U/L (45-116); Anion Gap 12 mmol/L (8-16); Aspartate Amino Transferase 19 U/L (14-36); Bilirubin,Total 0.3 mg/dL (0.2-1.3); Blood Urea Nitrogen 11 mg/dL (8-21); Calcium 9.9 mg/dL (8.9-10.7); Carbon Dioxide 24 mmol/L (22-30); Chloride 98 mmol/L (98-107); Estimated CRCL calculation 156 ml/min; Estimated Glomerular Filt Rate > 60; Glucose 277 mg/dL (65-110); Lipase 43 U/L (23-300); Potassium 3.8 mmol/L (3.4-5.0); Sodium 134 mmol/L (134-143)
[2021-09-09 23:21] LABS: D Dimer 0.27 ug/mL (<0.48)
[2021-09-09 23:23] LABS: Troponin I < 0.012 ng/mL (0.000-0.034)
[2021-09-09 23:39] LABS: Atypical Lymphocytes Present; Platelet Estimate Adequate (Adequate)
[2021-09-10] VITALS: PULSE 96; RESP 23; O2SAT 100
[2021-09-10] MEDS: SODIUM CHLORIDE 0.9% IV 1,000 ML 999 ML IV CONT (00:05)
[2021-09-10] MEDS: ONDANSETRON INJ 4 MG/2 ML VIAL IV PUSH (00:07)
[2021-09-10] MEDS: KETOROLAC 30 MG/ML VIAL (*BKC) IV PUSH (00:08)
[2021-09-10 00:16] VITALS: BP 113/73; PULSE 113; RESP 17
[2021-09-10 00:17] VITALS: PULSE 106; RESP 13; O2SAT 100
[2021-09-10 00:39] VITALS: PULSE 110; RESP 27; O2SAT 100
[2021-09-10 01:25] VITALS: BP 110/71; PULSE 91; RESP 20; O2SAT 99
[2021-09-10 21:02] LABS: SARS-CoV-2 RNA PCR Negative
== END 2021-09-10 01:25 | disposition home or self-care (01) ==
PROVIDERS: Emergency Provider Emergency Medicine; PCP Physician Assistant
DX: J18.9 Pneumonia, unspecified organism (principal); R07.89 Other chest pain; Z20.822 Contact with and (suspected) exposure to COVID-19; E11.9 Type 2 diabetes mellitus without complications; E28.2 Polycystic ovarian syndrome; E78.00 Pure hypercholesterolemia, unspecified; I51.9 Heart disease, unspecified; F32.A Depression, unspecified; Z79.4 Long term (current) use of insulin; R00.0 Tachycardia, unspecified
CPT/HCPCS: 36415; 71045; 80053; 83690; 84484; 85025; 85380; 93005; 96361; 96374; 96375; 99284; C9803; J1885; J2405; J7030; U0003; U0005

== ENCOUNTER 2021-10-01 00:01 | Emergency (ER) | payer OTHER, SELFPAY ==
--- NOTE | ~2021-10-01 | XR_ITS ---
EXAMINATION: XR chest 2V DATE: 10/01/2021 01:47 INDICATION: Dyspnea. Cough. TECHNIQUE: Frontal and lateral views of the chest were obtained. COMPARISON: Chest single view 09/09/2021, CT abdomen and pelvis 06/05/2021 FINDINGS: The chest demonstrates clear lungs without pneumonia, pleural effusion, or pneumothorax. Th e heart size is normal. IMPRESSION: 1. No acute cardiopulmonary disease. Reviewed, dictated and finalized at location A. OR STAFF ACCOUNTANT
[2021-10-01 00:02] VITALS: BP 144/91; PULSE 118; RESP 20; TEMP 36.7; O2SAT 100
--- NOTE | 2021-10-01 01:01 | ECG_ITS ---
Measurements Intervals [place] Rate: 96 P: 27 NE: 133 QRS: 40 QRSD: 85 T: -2 QT: 334 QTc: 424 Interpretive Statements SINUS RHYTHM WITH MARKED SINUS ARRHYTHMIA NONSPECIFIC ST & T-WAVE ABNORMALITY- ANTEROLAT/INF LEADS BASELINE ARTIFACT- II, III, AVR, AVF, V1, V3-V6 BORDERLINE ECG Electronically Signed On 10-01-2021 6:13:42 ERP TECHNICAL LEAD by Bogdan Pan D.O.
[2021-10-01 01:19] VITALS: PULSE 106; RESP 18
[2021-10-01] MEDS: IPRATROPIUM BR 0.02% INH SOLN 0.5 MG/2.5 ML VIAL INHALATION (01:19)
[2021-10-01] MEDS: ALBUTEROL SULFATE NEB 2.5 MG/0.5 ML INH 5 MG INHALATION (01:19)
--- NOTE | 2021-10-01 01:25 | ED.SOB ---
HPI - SOB/Dyspnea General Chief Complaint: Shortness of Breath/Dyspnea Stated Complaint: sob Time Seen by Provider: 10/01/21 00:57 Source: patient History of Present Illness HPI Narrative: Patient presents with shortness of breath. So she is feeling well yesterday however today she has had difficulty getting enough air. Reports it is hard to take a deep breath because her lungs feel tight she denies productive cough she denies fevers with some nausea denies any vomiting diarrhea or urinary symptoms denies any focal areas of pain. Related Data Home Medications Medication Instructions Recorded Confirmed insulin glargine [Lantus U-100 30 unit SUBCUT HS 12/10/20 04/08/21 Insulin] sertraline [Zoloft] 100 mg PO DAILY 12/13/20 04/08/21 [place] 3 Fish Oil 1 mg PO DAILY 02/17/21 Allergies Allergy/AdvReac Type Severity Reaction Status Date / Time No Known Allergies Allergy Verified 10/01/21 00:04 Review of Systems Review of Systems: CONSTITUTIONAL: Denies fever, chills, or sweats. EYES: Denies visual changes, redness, or discharge. ENT: Denies rhinorrhea, congestion, sore throat, or otalgia. CARDIOVASCULAR: Denies chest pain, palpitations, or edema. RESPIRATORY: Shortness of breath GASTROINTESTINAL: Denies abdominal pain, vomiting, or diarrhea. GENITOURINARY: Denies dysuria or hematuria. SKIN: Denies rash or itching. MUSCULOSKELETAL: Denies back pain, joint pain, or myalgia. NEUROLOGIC: Denies headache, numbness, dizziness, or weakness. PSYCHIATRIC: Denies anxiety or depression. All systems reviewed & are unremarkable except as noted in HPI and below PMFSH Past Medical History Medical History Depression Heart disease High cholesterol Hx of migraines Ingrown toenail of both feet PCOS (polycystic ovarian syndrome) TMJ (dislocation of temporomandibular joint) Type 2 diabetes mellitus Surgical History Surgical History History of dental surgery History of toe surgery Bilateral for ingrown toenail Family History Family History Other Diabetes mellitus Heart disease Hypertension Social History Social History Smoking status: Never smoker Tobacco type: cigarettes Second hand tobacco smoke exposure: No Alcohol intake: never Substance use: never Substance use type: does not use Gender identity (if verbalized by the patient): Female Sexual Orientation (if Verbalized by the Patient): Straight or Heterosexual Exam Narrative: GENERAL: Well-appearing, well-nourished, and in no acute distress. HEAD: Normocephalic, atraumatic. EYES: PERRLA and EOMI. ENT: Nares clear, no rhinorrhea or epistaxis. Mucous membranes moist. NECK: Supple. No masses. No JVD CHEST: Clear to auscultation. No respiratory distress. No wheezes rales or rhonchi HEART: Regular tachycardia no murmur heard. Normal peripheral pulses. ABDOMEN: Soft, nontender, nondistended, normal active bowel sounds. EXTREMITIES: Normal range of motion. No edema. SKIN: Warm, dry, no rash. NEURO: No focal deficits. Alert and oriented x3. PSYCH: Normal mood and affect. Course Reevaluation(s) Reevaluation #1: Patient reports feeling much improved after breathing treatments results reviewed with patient. Patient comfortable outpatient plan Date: 10/01/21 Time: 03:14 Vital Signs Vital signs: Vital Signs Temperature 36.7 C 10/01/21 00:02 Pulse Rate 118 H 10/01/21 00:02 Respiratory Rate 20 10/01/21 00:02 Blood Pressure 144/91 H 10/01/21 00:02 Pulse Oximetry 100 10/01/21 00:02 Temperature 36.7 C 10/01/21 00:02 Pulse Rate 111 H 10/01/21 03:37 Respiratory Rate 18 10/01/21 03:37 Blood Pressure 113/70 10/01/21 03:37 Pulse Oximetry 98 10/01/21 03:37 MDM - SOB/Dyspnea MDM Narrative Medical dec
[2021-10-01 01:29] VITALS: PULSE 109; RESP 18
[2021-10-01 01:50] VITALS: BP 113/72; PULSE 106; RESP 13; O2SAT 100
[2021-10-01 01:54] VITALS: O2SAT 99
[2021-10-01 02:47] LABS: Basophils Percent Auto 0.3 % (0.2-1.2); Eosinophils Absolute Auto 0.1 K/mm3 (0-0.3); Eosinophils Percent Auto 0.5 % (0-4.4); Hematocrit 40.7 % (37.0-47.0); Hemoglobin 14.2 g/dL (12.0-15.0); Immature Granulocyte Absolute 0.02 K/mm3 (0.00-0.031); Immature Granulocyte Percent A 0.2 % (0-0.5); Lymphocytes Absolute Auto 5.54 K/mm3 (0.9-3.2); Lymphocytes Percent Auto 57.8 % (18.3-44.2); Mean Corpuscular HGB Conc 34.9 g/dl (32-36); Mean Corpuscular Hemoglobin 30.1 pg (26-34); Mean Corpuscular Volume 86.2 fl (80-100); Mean Platelet Volume 10.2 fl (7.4-10.4); Monocytes Absolute Auto 0.7 K/mm3 (0.1-0.6); Monocytes Percent Auto 6.9 % (2.6-8.5); Neutrophils Absolute Auto 3.3 K/mm3 (1.3-6.7); Neutrophils Percent Auto 34.3 % (45.5-73.1); Platelet Count Result 322 k/mm3 (150-375); Red Blood Count 4.72 M/mm3 (4.2-5.4); White Blood Count 9.6 K/mm3 (4.5-10.0)
[2021-10-01 03:01] LABS: Magnesium 1.8 mg/dL (1.6-2.3)
[2021-10-01 03:02] LABS: Alanine Aminotransferase 19 U/L (4-35); Albumin Level 4.7 g/dL (3.7-5.6); Alkaline Phosphatase 106 U/L (45-116); Anion Gap 12 mmol/L (8-16); Aspartate Amino Transferase 20 U/L (14-36); Bilirubin,Total 0.4 mg/dL (0.2-1.3); Blood Urea Nitrogen 12 mg/dL (8-21); Calcium 9.7 mg/dL (8.9-10.7); Carbon Dioxide 23 mmol/L (22-30); Chloride 100 mmol/L (98-107); Estimated CRCL calculation 181 ml/min; Estimated Glomerular Filt Rate > 60; Glucose 343 mg/dL (65-110); Potassium 3.4 mmol/L (3.4-5.0); Sodium 135 mmol/L (134-143)
[2021-10-01 03:03] LABS: INR 0.9; Prothrombin Time 12.5 Seconds (11.1-14.7)
[2021-10-01 03:04] LABS: Partial Thromboplastin Time 21.5 SECONDS (22.3-36.8)
[2021-10-01 03:06] LABS: D Dimer 0.35 ug/mL (<0.48)
[2021-10-01 03:37] VITALS: BP 113/70; PULSE 111; RESP 18; O2SAT 98
== END 2021-10-01 03:38 | disposition home or self-care (01) ==
PROVIDERS: Emergency Provider Emergency Medicine; PCP Physician Assistant
DX: R06.00 Dyspnea, unspecified (principal); F32.9 Major depressive disorder, single episode, unspecified; E78.5 Hyperlipidemia, unspecified; E11.9 Type 2 diabetes mellitus without complications
CPT/HCPCS: 36415; 71046; 80053; 83735; 85025; 85380; 85610; 85730; 93005; 94640; 99284

== ENCOUNTER 2021-10-07 12:05 | Emergency (ER) | payer OTHER, SELFPAY ==
[2021-10-07 12:14] VITALS: BP 130/69; PULSE 96; RESP 16; TEMP 36.5; O2SAT 100
--- NOTE | 2021-10-07 12:52 | ED.BACK ---
HPI - Back Pain/Injury General Chief Complaint: Back Pain/Injury Stated Complaint: Back Pain Time Seen by Provider: 10/07/21 12:40 Source: patient and RN notes reviewed Mode of arrival: ambulatory Limitations: no limitations History of Present Illness HPI Narrative: Patient presents today complaining of right mid back pain. She injured her back while pulling up her pants while she was wet. Injury occurred this morning prior to arrival. She currently rates her pain 7/10, which increases with movement. She has been taking Tylenol without relief. Denies numbness or tingling. Denies radiation of the pain. MD elicited complaint: back injury Related Data Home Medications Medication Instructions Recorded Confirmed insulin glargine [Lantus U-100 30 unit SUBCUT HS 12/10/20 10/07/21 Insulin] sertraline [Zoloft] 100 mg PO DAILY 12/13/20 10/07/21 [place] 3 Fish Oil 1 mg PO DAILY 02/17/21 10/07/21 Allergies Allergy/AdvReac Type Severity Reaction Status Date / Time No Known Allergies Allergy Verified 10/07/21 12:23 Review of Systems Review of Systems: CONSTITUTIONAL: Denies body aches, fever, chills, or sweats. EYES: Denies visual changes, redness, or discharge. ENT: Denies rhinorrhea, congestion, sore throat, or otalgia. CARDIOVASCULAR: Denies chest pain, palpitations, or edema. RESPIRATORY: Denies cough or dyspnea. GASTROINTESTINAL: Denies abdominal pain, nausea, vomiting, or diarrhea. GENITOURINARY: Denies dysuria or hematuria. SKIN: Denies rash, itching, or wounds. MUSCULOSKELETAL: Denies joint pain, or myalgia.+ Mid back injury NEUROLOGIC: Denies headache, numbness, tingling, or weakness. PSYCH: Denies depression or anxiety. [facility], [facility] Past Medical History Medical History Depression Heart disease High cholesterol Hx of migraines Ingrown toenail of both feet PCOS (polycystic ovarian syndrome) TMJ (dislocation of temporomandibular joint) Type 2 diabetes mellitus Surgical History Surgical History History of dental surgery History of toe surgery Bilateral for ingrown toenail Family History Family History Other Diabetes mellitus Heart disease Hypertension Social History Social History Smoking status: Never smoker Tobacco type: cigarettes Second hand tobacco smoke exposure: No Alcohol intake: never Substance use: never Substance use type: does not use Gender identity (if verbalized by the patient): Female Sexual Orientation (if Verbalized by the Patient): Straight or Heterosexual Comments At time of signature, I have reviewed and agree with nursing past medical, surgical, social and family history unless otherwise noted. Please see nursing chart for further information. There is no relevant family history pertinent to the presenting complaint Exam Narrative: GENERAL: Well-appearing, well-nourished, and in no acute distress. HEAD: Normocephalic, atraumatic. EYES: EOMI. No redness or drainage. Conjunctivae normal. ENT: Mucous membranes pink and moist. NECK: Normal AROM. Supple. No lymphadenopathy. CHEST: No respiratory distress. MUSCULOSKELETAL: No bony tenderness of the spine. Localized right mid thoracic paraspinal muscle tenderness. Distal sensation intact bilaterally. Capillary refill normal. Radial pulses normal. Pain increases in the back with movement of the neck. EXTREMITIES: Normal range of motion. No edema. SKIN: Warm, dry, no rash. Capillary refill normal. Normal skin turgor. NEURO: No focal deficits. Alert and oriented x3. Gait steady. PSYCH: Normal affect. No signs of depression or anxiety. Course Course Level of Care: Express Care Visit Vital Signs Vital signs: Vital Signs Temperature 97.7 F 10/07/21 12:14 Pu
== END 2021-10-07 13:00 | disposition home or self-care (01) ==
PROVIDERS: Emergency Provider Nurse Practitioner; PCP Physician Assistant
DX: S29.012A Strain of muscle and tendon of back wall of thorax, initial encounter (principal); X50.0XXA Overexertion from strenuous movement or load, initial encounter; E78.00 Pure hypercholesterolemia, unspecified; E28.2 Polycystic ovarian syndrome; E11.9 Type 2 diabetes mellitus without complications; Z79.4 Long term (current) use of insulin; I51.9 Heart disease, unspecified; F32.A Depression, unspecified
CPT/HCPCS: 99212; G0463

== ENCOUNTER 2021-10-08 19:07 | Emergency (ER) | payer OTHER, SELFPAY ==
[2021-10-08 19:12] VITALS: BP 137/96; PULSE 115; RESP 18; TEMP 36.6; O2SAT 100
[2021-10-08 19:20] LABS: Glucose Point of Care > 500 mg/dl (65-105)
--- NOTE | 2021-10-08 21:27 | ED.RECABL ---
HPI - Recheck/Abnormal Lab/Rx General Chief Complaint: Recheck/Abnormal Lab/Rx Stated Complaint: possible high blood sugar/ lightheaded Time Seen by Provider: 10/08/21 21:00 Source: patient History of Present Illness HPI narrative: Patient presents with weakness and high blood sugar. Patient reports she started feeling weak this evening took her blood sugar and it was greater than 500 on her glucometer. Reports she is on insulin and Metformin to control her symptoms. She denies recent fevers, cough, congestion, nausea, vomiting. She reports increased urinary frequency. Related Data Home Medications Medication Instructions Recorded Confirmed insulin glargine [Lantus U-100 30 unit SUBCUT HS 12/10/20 10/07/21 Insulin] sertraline [Zoloft] 100 mg PO DAILY 12/13/20 10/07/21 [place] 3 Fish Oil 1 mg PO DAILY 02/17/21 10/07/21 Allergies Allergy/AdvReac Type Severity Reaction Status Date / Time No Known Allergies Allergy Verified 10/07/21 12:23 Review of Systems Review of Systems: CONSTITUTIONAL: Denies fever, chills, or sweats. EYES: Denies visual changes, redness, or discharge. ENT: Denies rhinorrhea, congestion, sore throat, or otalgia. CARDIOVASCULAR: Denies chest pain, palpitations, or edema. RESPIRATORY: Denies cough or dyspnea. GASTROINTESTINAL: Denies abdominal pain, nausea, vomiting, or diarrhea. GENITOURINARY: Denies dysuria or hematuria. SKIN: Denies rash or itching. MUSCULOSKELETAL: Denies back pain, joint pain, or myalgia. NEUROLOGIC: Denies headache, numbness, dizziness, or focal weakness. PSYCHIATRIC: Denies anxiety or depression. All systems reviewed & are unremarkable except as noted in HPI and below [facility] Past Medical History Medical History Depression Heart disease High cholesterol Hx of migraines Ingrown toenail of both feet PCOS (polycystic ovarian syndrome) TMJ (dislocation of temporomandibular joint) Type 2 diabetes mellitus Surgical History Surgical History History of dental surgery History of toe surgery Bilateral for ingrown toenail Family History Family History Other Diabetes mellitus Heart disease Hypertension Social History Social History Smoking status: Never smoker Tobacco type: cigarettes Second hand tobacco smoke exposure: No Alcohol intake: never Substance use: never Substance use type: does not use Gender identity (if verbalized by the patient): Female Sexual Orientation (if Verbalized by the Patient): Straight or Heterosexual Exam Narrative: GENERAL: Well-appearing, well-nourished, and in no acute distress. HEAD: Normocephalic, atraumatic. EYES: PERRLA and EOMI. ENT: Nares clear, no rhinorrhea or epistaxis. Mucous membranes moist. NECK: Supple. No masses. No JVD ABDOMEN: Soft, nontender, nondistended, normal active bowel sounds. EXTREMITIES: Normal range of motion. No edema. SKIN: Warm, dry, no rash. NEURO: No focal deficits. Alert and oriented x3. PSYCH: Normal mood and affect. Course Reevaluation(s) Reevaluation #1: Patient resting comfortably easily aroused results and plan reviewed with patient. We will continue fluids and recheck glucose patient is comfortable with the plan Date: 10/09/21 Time: 00:16 Reevaluation #2: Patient symptoms continue to improve repeat blood sugar is reassuring. There is no evidence of DKA. Patient is appropriate to continue home management of her diabetes. Date: 10/09/21 Time: 00:48 Vital Signs Vital signs: Vital Signs Temperature 36.6 C 10/08/21 19:12 Pulse Rate 115 H 10/08/21 19:12 Respiratory Rate 18 10/08/21 19:12 Blood Pressure 137/96 H 10/08/21 19:12 Pulse Oximetry 100 10/08/21 19:12 Temperature 36.6 C 10/08/21 19:12 Pulse Rate 86 10/09/21 01:25 Respirator
[2021-10-08] MEDS: SODIUM CHLORIDE 0.9% IV 1,000 ML 999 ML IV CONT ×2 (21:58→23:06)
[2021-10-08 22:08] LABS: Basophils Percent Auto 0.5 % (0.2-1.2); Eosinophils Absolute Auto 0.1 K/mm3 (0-0.3); Eosinophils Percent Auto 0.7 % (0-4.4); Hematocrit 40.5 % (37.0-47.0); Hemoglobin 14.3 g/dL (12.0-15.0); Immature Granulocyte Absolute 0.03 K/mm3 (0.00-0.031); Immature Granulocyte Percent A 0.3 % (0-0.5); Lymphocytes Absolute Auto 4.66 K/mm3 (0.9-3.2); Mean Corpuscular HGB Conc 35.3 g/dl (32-36); Mean Corpuscular Hemoglobin 30.1 pg (26-34); Mean Corpuscular Volume 85.3 fl (80-100); Mean Platelet Volume 10.7 fl (7.4-10.4); Monocytes Absolute Auto 0.6 K/mm3 (0.1-0.6); Monocytes Percent Auto 7.1 % (2.6-8.5); Neutrophils Absolute Auto 3.4 K/mm3 (1.3-6.7); Neutrophils Percent Auto 38.4 % (45.5-73.1); Platelet Count Result 319 k/mm3 (150-375); Red Blood Count 4.75 M/mm3 (4.2-5.4); Red Cell Distribution Width 12.3 % (11.5-14.5); White Blood Count 8.8 K/mm3 (4.5-10.0)
[2021-10-08 22:21] LABS: Atypical Lymphocytes Present; Platelet Estimate Adequate (Adequate)
[2021-10-08 22:30] LABS: Alanine Aminotransferase 18 U/L (4-35); Albumin Level 4.3 g/dL (3.7-5.6); Alkaline Phosphatase 102 U/L (45-116); Anion Gap 10 mmol/L (8-16); Aspartate Amino Transferase 21 U/L (14-36); Bilirubin,Total 0.4 mg/dL (0.2-1.3); Blood Urea Nitrogen 14 mg/dL (8-21); Calcium 9.9 mg/dL (8.9-10.7); Carbon Dioxide 24 mmol/L (22-30); Chloride 97 mmol/L (98-107); Estimated CRCL calculation 155 ml/min; Estimated Glomerular Filt Rate > 60; Glucose 524 mg/dL (65-110); Magnesium 1.9 mg/dL (1.6-2.3); Phosphorus 5.3 mg/dL (2.5-4.5); Potassium 4.1 mmol/L (3.4-5.0); Sodium 131 mmol/L (134-143)
[2021-10-08] MEDS: INSULIN ASPART (*BKC) 100 UNITS/ML 10 UNITS SUB-Q (23:07)
[2021-10-08 23:14] VITALS: BP 132/79; PULSE 90; RESP 18; O2SAT 99
--- NOTE | 2021-10-08 23:14 | PC.NURSE ---
Assuming care of pt.
[2021-10-09 00:23] VITALS: BP 114/68; PULSE 99; RESP 18; O2SAT 99
[2021-10-09] MEDS: SODIUM CHLORIDE 0.9% IV 1,000 ML 999 ML IV CONT (00:23)
[2021-10-09 00:35] LABS: Glucose Point of Care 253 mg/dl (65-105)
[2021-10-09 01:05] LABS: Add Urine Microscopic? YES; Appearance Urine Clear (Clear); Bacteria Urine Trace /hpf; Bilirubin Urine Negative (Negative); Blood Urine Negative (Negative); Color Urine Straw (Yellow); Glucose Urine UA 3+ mg/dL (Negative); Ketones Urine Negative (Negative); Leukocyte Esterase Ur Negative LEU/UL (Negative); Nitrate Urine Negative (Negative); Protein Urine Negative (Negative); RBC Urine 0-2 /hpf (0-2); Squamous Epithelial Cell Urine Rare /hpf (Few); Urobilinogen Urine Negative mg/dL (<2.0); WBC Urine 0-3 /hpf
[2021-10-09 01:25] VITALS: BP 123/64; PULSE 86; RESP 23; O2SAT 99
[2021-10-09 01:25] LABS: Glucose Point of Care 250 mg/dl (65-105)
== END 2021-10-09 01:27 | disposition home or self-care (01) ==
PROVIDERS: Emergency Provider Emergency Medicine; PCP Physician Assistant
DX: E11.65 Type 2 diabetes mellitus with hyperglycemia (principal); F32.A Depression, unspecified; E78.00 Pure hypercholesterolemia, unspecified; I51.9 Heart disease, unspecified; E28.2 Polycystic ovarian syndrome; Z79.4 Long term (current) use of insulin; Z79.84 Long term (current) use of oral hypoglycemic drugs
CPT/HCPCS: 36415; 80053; 81001; 81025; 82010; 82948; 83735; 84100; 85025; 96360; 96361; 99283; J1815; J7030

== ENCOUNTER 2021-11-22 10:43 | Emergency (ER) | payer OTHER, SELFPAY ==
[2021-11-22 10:55] VITALS: BP 119/71; PULSE 106; RESP 18; TEMP 36.5; O2SAT 99
--- NOTE | 2021-11-22 11:05 | ED.NAVMDI ---
HPI - Nausea/Vomiting/Diarrhea General Chief complaint: Nausea/Vomiting/Diarrhea Stated complaint: Nausea Time Seen by Provider: 11/22/21 11:05 Source: patient Mode of arrival: ambulatory Limitations: no limitations History of Present Illness HPI Narrative: 21-year-old female with history of type 1 diabetes presents to [facility] with complaint of nausea and feeling lightheaded this morning. She has not yet checked her blood sugar, taken any of her home medications or ate breakfast. She states that she needs a work note because she does not want to go to work today. She has not vomited but states that she has felt gaggy. She denies abdominal pain, no urinary complaints. No URI symptoms. Reports that blood sugars normally range in the 200s. All systems reviewed and negative except as noted above. Related Data Home Medications Medication Instructions Recorded Confirmed insulin glargine [Lantus U-100 30 unit SUBCUT HS 12/10/20 10/07/21 Insulin] sertraline [Zoloft] 100 mg PO DAILY 12/13/20 10/07/21 liraglutide [Victoza 3-Aristides] mg SUBCUT 11/22/21 metformin mg PO 11/22/21 Allergies Allergy/AdvReac Type Severity Reaction Status Date / Time No Known Allergies Allergy Verified 10/07/21 12:23 Review of Systems Review of Systems: CONSTITUTIONAL: Denies fever, chills, or sweats. EYES: Denies visual changes, redness, or discharge. ENT: Denies rhinorrhea, congestion, sore throat, or otalgia. CARDIOVASCULAR: Denies chest pain, palpitations, or edema. RESPIRATORY: Denies cough or dyspnea. GASTROINTESTINAL: Denies abdominal pain, vomiting, or diarrhea. Reports nausea. GENITOURINARY: Denies dysuria or hematuria. SKIN: Denies rash or itching. MUSCULOSKELETAL: Denies back pain, joint pain, or myalgia. NEUROLOGIC: Denies headache, numbness, or weakness. Reports feeling lightheaded. PSYCHIATRIC: Denies anxiety or depression. All other systems reviewed are negative, except as documented in HPI. [facility] Past Medical History Medical History Depression Heart disease High cholesterol Hx of migraines Ingrown toenail of both feet PCOS (polycystic ovarian syndrome) TMJ (dislocation of temporomandibular joint) Type 2 diabetes mellitus Surgical History Surgical History History of dental surgery History of toe surgery Bilateral for ingrown toenail Family History Family History Other Diabetes mellitus Heart disease Hypertension Social History Social History Smoking status: Never smoker Tobacco type: cigarettes Second hand tobacco smoke exposure: No Alcohol intake: never Substance use: never Substance use type: does not use Gender identity (if verbalized by the patient): Female Sexual Orientation (if Verbalized by the Patient): Straight or Heterosexual Comments At time of signature, agree with nursing past medical, surgical, social and family history. There is no relevant family history pertinent to the presenting complaint. Exam Narrative: GENERAL: This is a well-nourished, well-developed patient, in no apparent distress. HEAD: normocephalic, atraumatic. EYES: PERRL. Sclera clear/white. Vision is grossly intact. EARS: External ears normal, auditory canals clear and without drainage, TMs normal without perforation. Hearing grossly intact. NOSE: External nose normal with no obvious nasal discharge, nares without redness, no rhinorrhea. THROAT: Mucous membranes moist, posterior pharynx clear. NECK: Neck supple, non-tender without lymphadenopathy, masses or thyromegaly. CARDIOVASCULAR: Regular rate and rhythm without murmurs, gallops, or rubs. RESPIRATORY: Clear to auscultation. Breath sounds equal bilaterally. No wheezes, rales, or rhonchi. GASTROINTESTINAL: Abdomen soft, non-tender, nondi
[2021-11-22] MEDS: ONDANSETRON HCL ODT 4 MG TABLET SUBLINGUAL (11:17)
[2021-11-22 11:22] LABS: Glucose Point of Care 266 mg/dl (65-105)
== END 2021-11-22 11:49 | disposition home or self-care (01) ==
PROVIDERS: Emergency Provider Nurse Practitioner Family; PCP Physician Assistant
DX: E11.65 Type 2 diabetes mellitus with hyperglycemia (principal); R11.0 Nausea; E78.00 Pure hypercholesterolemia, unspecified; E28.2 Polycystic ovarian syndrome; I51.9 Heart disease, unspecified; F32.A Depression, unspecified; Z79.4 Long term (current) use of insulin
CPT/HCPCS: 82948; 99213; A9270; G0463

== ENCOUNTER 2021-11-23 09:43 | Emergency (ER) | payer OTHER, SELFPAY ==
[2021-11-23 09:47] VITALS: BP 120/74; PULSE 99; RESP 14; TEMP 36.7; O2SAT 99
--- NOTE | 2021-11-23 10:02 | ED.NAVMDI ---
HPI - Nausea/Vomiting/Diarrhea General Chief complaint: Nausea/Vomiting/Diarrhea Stated complaint: nausea, vomiting Time Seen by Provider: 11/23/21 09:45 Source: patient Mode of arrival: ambulatory Limitations: no limitations History of Present Illness HPI Narrative: 25-year-old female presents today with complaints of 5 days of nausea and lightheadedness with vomiting this morning. Patient denies cough, runny nose, sore throat, fevers, but does endorse generalized umbilical discomfort. Patient seen at a clinic yesterday was discharged with Zofran. Was unable to pick it up but is there for her today to supervisor opening and picking. Patient also noted that 2 weeks ago she started a diet for surgical weight loss. Patient states she is eating lower carb then normal but not sure how many a day. Related Data Home Medications Medication Instructions Recorded Confirmed insulin glargine [Lantus U-100 30 unit SUBCUT HS 12/10/20 10/07/21 Insulin] sertraline [Zoloft] 100 mg PO DAILY 12/13/20 10/07/21 liraglutide [Victoza 3-Aristides] mg SUBCUT 11/22/21 metformin mg PO 11/22/21 Allergies Allergy/AdvReac Type Severity Reaction Status Date / Time No Known Allergies Allergy Verified 10/07/21 12:23 Review of Systems Review of Systems: CONSTITUTIONAL: Denies fever, chills, or sweats. EYES: Denies visual changes, redness, or discharge. ENT: Denies rhinorrhea, congestion, sore throat, or otalgia. CARDIOVASCULAR: Denies chest pain, palpitations, or edema. RESPIRATORY: Denies cough or dyspnea. GASTROINTESTINAL: Positive for abdominal pain, nausea, vomiting x1 this morning. Denies diarrhea. GENITOURINARY: Denies dysuria or hematuria. SKIN: Denies rash or itching. MUSCULOSKELETAL: Denies back pain, joint pain, or myalgia. NEUROLOGIC: Denies headache, numbness, dizziness, or weakness. PSYCHIATRIC: Denies anxiety or depression. [facility]LY [facility] Past Medical History Medical History Depression Heart disease High cholesterol Hx of migraines Ingrown toenail of both feet PCOS (polycystic ovarian syndrome) TMJ (dislocation of temporomandibular joint) Type 2 diabetes mellitus Surgical History Surgical History History of dental surgery History of toe surgery Bilateral for ingrown toenail Family History Family History Other Diabetes mellitus Heart disease Hypertension Social History Social History Smoking status: Never smoker Tobacco type: cigarettes Second hand tobacco smoke exposure: No Alcohol intake: never Substance use: never Substance use type: does not use Gender identity (if verbalized by the patient): Female Sexual Orientation (if Verbalized by the Patient): Straight or Heterosexual Exam Narrative: GENERAL: Well-appearing, well-nourished, and in no acute distress. HEAD: Normocephalic, atraumatic. EYES: PERRLA and EOMI. ENT: Nares clear, no rhinorrhea or epistaxis. Mucous membranes moist. Oropharynx without tonsillar hypertrophy exudate or other lesions. Bilateral TMs pearly nugent nonbulging NECK: Supple. No adenopathy or masses. No carotid bruits or JVD CHEST: Clear to auscultation. No respiratory distress. No wheezes rales or rhonchi HEART: Regular rate and rhythm. No murmur heard. Normal peripheral pulses. ABDOMEN: Soft, nontender, nondistended, normal active bowel sounds. EXTREMITIES: Normal range of motion. No edema. SKIN: Warm, dry, no rash. NEURO: No focal deficits. Alert and oriented x3. PSYCH: Normal mood and affect. Course Reevaluation(s) Reevaluation #1: Patient states she is feeling better. Patient took Humalog but denied migraine cocktail due to chronic migraines. Will discharge patient home recommend follow-up with primary and to return with any new or worsening symptoms. Reviewed importance of
[2021-11-23 10:20] LABS: Basophils Percent Auto 0.4 % (0.2-1.2); Eosinophils Percent Auto 0.4 % (0-4.4); Hematocrit 43.6 % (37.0-47.0); Hemoglobin 14.7 g/dL (12.0-15.0); Immature Granulocyte Absolute 0.02 K/mm3 (0.00-0.031); Immature Granulocyte Percent A 0.3 % (0-0.5); Lymphocytes Absolute Auto 3.05 K/mm3 (0.9-3.2); Lymphocytes Percent Auto 38.8 % (18.3-44.2); Mean Corpuscular HGB Conc 33.7 g/dl (32-36); Mean Corpuscular Hemoglobin 30.1 pg (26-34); Mean Corpuscular Volume 89.3 fl (80-100); Mean Platelet Volume 10.6 fl (7.4-10.4); Monocytes Absolute Auto 0.5 K/mm3 (0.1-0.6); Monocytes Percent Auto 6.6 % (2.6-8.5); Neutrophils Absolute Auto 4.2 K/mm3 (1.3-6.7); Neutrophils Percent Auto 53.5 % (45.5-73.1); Platelet Count Result 289 k/mm3 (150-375); Red Blood Count 4.88 M/mm3 (4.2-5.4); Red Cell Distribution Width 12.6 % (11.5-14.5); White Blood Count 7.9 K/mm3 (4.5-10.0)
[2021-11-23 10:29] LABS: Alanine Aminotransferase 20 U/L (4-35); Albumin Level 4.6 g/dL (3.5-5.1); Alkaline Phosphatase 96 U/L (38-126); Anion Gap 7 mmol/L (8-16); Aspartate Amino Transferase 29 U/L (14-36); Bilirubin,Total 0.4 mg/dL (0.2-1.3); Blood Urea Nitrogen 13 mg/dL (7-17); Calcium 9.3 mg/dL (8.4-10.2); Carbon Dioxide 28 mmol/L (22-30); Chloride 100 mmol/L (98-107); Estimated CRCL calculation 178 ml/min; Estimated Glomerular Filt Rate > 60; Glucose 365 mg/dL (65-110); Lipase 51 U/L (23-300); Potassium 4.2 mmol/L (3.4-5.0); Sodium 135 mmol/L (137-145)
[2021-11-23 10:30] LABS: Add Urine Microscopic? YES; Appearance Urine Clear (Clear); Bilirubin Urine Negative (Negative); Blood Urine Negative (Negative); Color Urine Straw (Yellow); Glucose Urine UA 3+ mg/dL (Negative); Ketones Urine Trace mg/dL (Negative); Leukocyte Esterase Ur Negative LEU/UL (Negative); Nitrate Urine Negative (Negative); Protein Urine Negative (Negative); RBC Urine 0-2 /hpf (0-2); Squamous Epithelial Cell Urine Occasional /hpf (Few); Urobilinogen Urine Negative mg/dL (<2.0)
[2021-11-23 10:33] LABS: Specific Grav Ur 1.041 (1.001-1.035)
[2021-11-23] MEDS: SODIUM CHLORIDE 0.9% IV 1,000 ML 999 ML IV CONT (10:33)
[2021-11-23] MEDS: ONDANSETRON INJ 4 MG/2 ML VIAL IV PUSH (10:33)
[2021-11-23] MEDS: INSULIN ASPART (*BKC) 100 UNITS/ML 8 UNITS SUB-Q (11:40)
[2021-11-23 11:44] LABS: Glucose Point of Care 290 mg/dl (65-105)
[2021-11-23 12:00] VITALS: BP 122/74; PULSE 88; RESP 14; O2SAT 97
== END 2021-11-23 12:00 | disposition home or self-care (01) ==
PROVIDERS: Emergency Provider Nurse Practitioner Family; PCP Physician Assistant
DX: E11.65 Type 2 diabetes mellitus with hyperglycemia (principal); R11.0 Nausea; E78.00 Pure hypercholesterolemia, unspecified; I51.9 Heart disease, unspecified; E28.2 Polycystic ovarian syndrome; F32.A Depression, unspecified; Z79.4 Long term (current) use of insulin; Z79.84 Long term (current) use of oral hypoglycemic drugs; Z79.899 Other long term (current) drug therapy
CPT/HCPCS: 36415; 80053; 81001; 81025; 82948; 83690; 85025; 87077; 87086; 87088; 87186; 96361; 96374; 99284; J1815; J2405; J7030

== ENCOUNTER 2021-11-24 11:22 | Emergency (ER) | payer OTHER, SELFPAY ==
[2021-11-24 11:31] VITALS: BP 133/71; PULSE 112; RESP 16; TEMP 36.6; O2SAT 98
--- NOTE | 2021-11-24 11:58 | ED.NAVMDI ---
HPI - Nausea/Vomiting/Diarrhea General Chief complaint: Nausea/Vomiting/Diarrhea Stated complaint: vomiting Time Seen by Provider: 11/24/21 11:54 Source: patient, RN notes reviewed and old records reviewed Mode of arrival: ambulatory Limitations: no limitations History of Present Illness HPI Narrative: Patient presents today complaining of nausea. For the last 2 days she was seen in either the express care or the ER related to nausea and vomiting as well as lightheadedness. Yesterday in the ER she was given fluids and discharged home to take previously prescribed Zofran for her nausea. States that she has not vomited since yesterday morning. Patient comes in to [facility] today stating she was too nauseated to go to work today at [employer], and was told that since it is a weekend she needs a note excusing her from work. Patient ate a, big breakfast this morning, which is causing some upsetting her stomach at this time. She does have some Zofran at home she can take if needed. MD elicited complaint: nausea Related Data Home Medications Medication Instructions Recorded Confirmed insulin glargine [Lantus U-100 30 unit SUBCUT HS 12/10/20 10/07/21 Insulin] sertraline [Zoloft] 100 mg PO DAILY 12/13/20 10/07/21 liraglutide [Victoza 3-Aristides] mg SUBCUT 11/22/21 metformin mg PO 11/22/21 Allergies Allergy/AdvReac Type Severity Reaction Status Date / Time No Known Allergies Allergy Verified 11/24/21 11:49 Review of Systems Review of Systems: CONSTITUTIONAL: Denies body aches, fever, chills, or sweats. EYES: Denies visual changes, redness, or discharge. ENT: Denies rhinorrhea, congestion, sore throat, or otalgia. CARDIOVASCULAR: Denies chest pain, palpitations, or edema. RESPIRATORY: Denies cough or dyspnea. GASTROINTESTINAL: Denies abdominal pain, vomiting, or diarrhea.+ Nausea GENITOURINARY: Denies dysuria or hematuria. SKIN: Denies rash, itching, or wounds. MUSCULOSKELETAL: Denies back pain, joint pain, or myalgia. NEUROLOGIC: Denies headache, numbness, tingling, or weakness. PSYCH: Denies depression or anxiety. [facility] Past Medical History Medical History Depression Heart disease High cholesterol Hx of migraines Ingrown toenail of both feet PCOS (polycystic ovarian syndrome) TMJ (dislocation of temporomandibular joint) Type 2 diabetes mellitus Surgical History Surgical History History of dental surgery History of toe surgery Bilateral for ingrown toenail Family History Family History Other Diabetes mellitus Heart disease Hypertension Social History Social History Smoking status: Never smoker Tobacco type: cigarettes Second hand tobacco smoke exposure: No Alcohol intake: never Substance use: never Substance use type: does not use Gender identity (if verbalized by the patient): Female Sexual Orientation (if Verbalized by the Patient): Straight or Heterosexual Comments At time of signature, I have reviewed and agree with nursing past medical, surgical, social and family history unless otherwise noted. Please see nursing chart for further information. There is no relevant family history pertinent to the presenting complaint Exam Narrative: GENERAL: Well-appearing, well-nourished, and in no acute distress. HEAD: Normocephalic, atraumatic. EYES: EOMI. No redness or drainage. Conjunctivae normal. ENT: Mucous membranes pink and moist. NECK: Normal AROM. CHEST: No respiratory distress. Clear to auscultation. HEART: Regular rate and rhythm. No murmur appreciated. Normal peripheral pulses. ABDOMEN: Soft, nontender, nondistended, normal active bowel sounds. SKIN: Warm, dry, no rash. Capillary refill normal. Normal skin turgor. NEURO: No foc
== END 2021-11-24 12:10 | disposition home or self-care (01) ==
PROVIDERS: Emergency Provider Nurse Practitioner; PCP Physician Assistant
DX: R11.0 Nausea (principal); E78.00 Pure hypercholesterolemia, unspecified; E28.2 Polycystic ovarian syndrome; E11.9 Type 2 diabetes mellitus without complications; Z79.4 Long term (current) use of insulin; F32.A Depression, unspecified
CPT/HCPCS: 99211; G0463

== ENCOUNTER 2021-12-04 11:42 | Emergency (ER) | payer OTHER, SELFPAY ==
[2021-12-04] VITALS (15 sets, daily range): BP systolic 132–171; BP diastolic 74–109; PULSE 86–113; RESP 15–28; TEMP 36.1; O2SAT 94–100
--- NOTE | ~2021-12-04 | CT_ITS ---
EXAMINATION: CT abdomen pelvis w con DATE: 12/04/2021 13:36 INDICATION: Generalized abdominal pain TECHNIQUE: Computed tomography (CT) of the abdomen and pelvis was performed with 100 mL Omnipaque-350 intravenous contrast. Automated exposure control and iterative reconstruction technique were employe d. The dose-length product was 1453.92 mGy-cm. COMPARISON: 06/05/2021 FINDINGS: Lung bases are clear. Heart size is normal. No pericardial or pleural effusion. Liver, decompressed g allbladder, spleen, pancreas, bilateral adrenal glands and kidneys are normal. Bowels including the a ppendix are normal. Bladder, uterus and bilateral adnexa are normal. No free intraperitoneal gas or f luid. No pathologically enlarged abdominal or pelvic lymphadenopathy. Bones are unremarkable. IMPRESSION: 1. No acute intra-abdominal/pelvic process. Reviewed, dictated and finalized at location B.
[2021-12-04 11:49] LABS: Glucose Point of Care 474 mg/dl (65-105)
[2021-12-04 12:17] LABS: Basophils Percent Auto 0.3 % (0.2-1.2); Eosinophils Percent Auto 0.2 % (0-4.4); Hematocrit 39.7 % (37.0-47.0); Hemoglobin 13.2 g/dL (12.0-15.0); Immature Granulocyte Absolute 0.03 K/mm3 (0.00-0.031); Immature Granulocyte Percent A 0.3 % (0-0.5); Lymphocytes Percent Auto 28.1 % (18.3-44.2); Mean Corpuscular HGB Conc 33.2 g/dl (32-36); Mean Corpuscular Hemoglobin 29.9 pg (26-34); Mean Platelet Volume 10.6 fl (7.4-10.4); Monocytes Absolute Auto 0.7 K/mm3 (0.1-0.6); Monocytes Percent Auto 6.8 % (2.6-8.5); Neutrophils Absolute Auto 6.4 K/mm3 (1.3-6.7); Neutrophils Percent Auto 64.3 % (45.5-73.1); Platelet Count Result 294 k/mm3 (150-375); Red Blood Count 4.41 M/mm3 (4.2-5.4); Red Cell Distribution Width 12.4 % (11.5-14.5)
[2021-12-04 12:33] LABS: Beta-Hydroxybutyrate/Acetoacetate 0.18 mmol/L (0.02-0.27)
[2021-12-04 12:37] LABS: Alanine Aminotransferase 17 U/L (4-35); Albumin Level 4.1 g/dL (3.5-5.1); Alkaline Phosphatase 102 U/L (38-126); Anion Gap 10 mmol/L (8-16); Aspartate Amino Transferase 19 U/L (14-36); Bilirubin,Total 0.4 mg/dL (0.2-1.3); Blood Urea Nitrogen 15 mg/dL (7-17); Calcium 8.7 mg/dL (8.4-10.2); Carbon Dioxide 21 mmol/L (22-30); Chloride 102 mmol/L (98-107); Estimated Glomerular Filt Rate > 60; Glucose 505 mg/dL (65-110); Lipase 92 U/L (23-300); Sodium 133 mmol/L (137-145)
[2021-12-04] MEDS: ONDANSETRON INJ 4 MG/2 ML VIAL IV PUSH (12:44)
[2021-12-04 12:47] LABS: Potassium 3.9 mmol/L (3.4-5.0)
[2021-12-04] MEDS: SODIUM CHLORIDE 0.9% IV 1,000 ML 999 ML IV CONT ×3 (13:11→16:18)
[2021-12-04 13:12] LABS: Add Urine Microscopic? YES; Appearance Urine Clear (Clear); Bilirubin Urine Negative (Negative); Blood Urine Negative (Negative); Color Urine Straw (Yellow); Glucose Urine UA 3+ mg/dL (Negative); Ketones Urine Negative (Negative); Leukocyte Esterase Ur Negative LEU/UL (Negative); Nitrate Urine Negative (Negative); Protein Urine Negative (Negative); RBC Urine 0-2 /hpf (0-2); Squamous Epithelial Cell Urine Rare /hpf (Few); Urobilinogen Urine Negative mg/dL (<2.0); WBC Urine 0-3 /hpf
[2021-12-04 13:13] LABS: Specific Grav Ur 1.036 (1.001-1.035)
[2021-12-04 15:01] LABS: Glucose Point of Care 367 mg/dl (65-105)
[2021-12-04] MEDS: INSULIN ASPART (*BKC) 100 UNITS/ML 6 UNITS SUB-Q (16:14)
[2021-12-04 16:57] LABS: Glucose Point of Care 287 mg/dl (65-105)
--- NOTE | 2021-12-04 17:01 | ED.GENADULT ---
HPI - General Adult General Chief complaint: Nausea/Vomiting/Diarrhea Stated complaint: N/V/D - high blood sugar Time Seen by Provider: 12/04/21 11:45 Source: RN notes reviewed History of Present Illness HPI narrative: Patient presents emergency department from home for nausea vomiting diarrhea. Patient states that for the past 2 days she has been having nausea vomiting she states that she vomited several times yesterday was only vomited once today she states today she developed diarrhea states associate with diffuse abdominal pain described as cramping. Patient states she is a diabetic and does take insulin which she has been taking she denies any fevers or chills chest pain shortness of breath or any other symptoms states she does have a history of nausea and has Zofran at home Related Data Home Medications Medication Instructions Recorded Confirmed insulin glargine [Lantus U-100 30 unit SUBCUT HS 12/10/20 10/07/21 Insulin] sertraline [Zoloft] 100 mg PO DAILY 12/13/20 10/07/21 liraglutide [Victoza 3-Aristides] mg SUBCUT 11/22/21 metformin mg PO 11/22/21 Allergies Allergy/AdvReac Type Severity Reaction Status Date / Time No Known Allergies Allergy Verified 11/24/21 11:49 Review of Systems Review of Systems: Gen.: Denies fevers or chills ENT: Denies congestion Respiratory: Denies shortness of breath or cough CV: Denies chest pain or palpitations GI: See HPI denies burning, urgency, frequency or hematuria Musculoskeletal: Denies back pain or muscle pain Neuro: Denies numbness, tingling, weakness or focal weakness Skin: Denies rash Endocrine: Reports diabetes mellitus Except as documented, all other systems reviewed and negative [facility] Past Medical History Medical History Depression Heart disease High cholesterol Hx of migraines Ingrown toenail of both feet PCOS (polycystic ovarian syndrome) TMJ (dislocation of temporomandibular joint) Type 2 diabetes mellitus Surgical History Surgical History History of dental surgery History of toe surgery Bilateral for ingrown toenail Family History Family History Other Diabetes mellitus Heart disease Hypertension Social History Social History Smoking status: Never smoker Tobacco type: cigarettes Second hand tobacco smoke exposure: No Alcohol intake: never Substance use: never Substance use type: does not use Gender identity (if verbalized by the patient): Female Sexual Orientation (if Verbalized by the Patient): Straight or Heterosexual Exam Narrative: APPEARANCE: No acute distress, nontoxic, resting in bed HEENT: Normocephalic, atraumatic, OMM RESPIRATORY: No respiratory distress, clear to auscultation bilaterally with no rhonchi wheezing or rales CARDIOVASCULAR: RRR s murmur ABDOMINAL: Soft nondistended diffusely tender palpation no rebound or guarding MUSCULOSKELETAl: Moves all extremities. No clubbing, cyanosis or edema. NEURO: Awake and alert. Following commands, speech normal, no focal deficits SKIN:: Warm, dry. Normal Color PSYCHIATRIC: Normal affect/mood Course Course Emergency Course: Patient feeling better able to eat and drink in ED with no emesis Patient states that they are feeling much better at this time. States abdominal pain has resolved. Repeat abdominal exam shows the patient's abdomen to be soft and nontender. Discussed with patient results of workup and diagnosis. Discussed need for follow-up with primary care physician, reasons to return to the emergency department in proper use of medication. Patient understands and agrees to current treatment plan Vital Signs Vital signs: Vital Signs Temperature 97 F L 12/04/21 11:42 Pulse Rate 107 H 12/04/21 11:42 Respiratory Rate 16
== END 2021-12-04 17:37 | disposition home or self-care (01) ==
PROVIDERS: Emergency Provider Emergency Medicine; PCP Physician Assistant
DX: R10.9 Unspecified abdominal pain (principal); R11.2 Nausea with vomiting, unspecified; R19.7 Diarrhea, unspecified; F32.9 Major depressive disorder, single episode, unspecified; E78.5 Hyperlipidemia, unspecified; E28.2 Polycystic ovarian syndrome; E11.9 Type 2 diabetes mellitus without complications; Z79.84 Long term (current) use of oral hypoglycemic drugs
CPT/HCPCS: 36415; 74177; 80053; 81001; 81025; 82010; 82948; 83690; 85025; 96361; 96374; 96375; 99284; J0131; J1815; J2405; J7030; Q9967

== ENCOUNTER 2021-12-14 11:12 | Emergency (ER) | payer OTHER, SELFPAY ==
[2021-12-14 11:19] VITALS: BP 138/76; PULSE 108; RESP 16; TEMP 36.2; O2SAT 100
--- NOTE | 2021-12-14 12:04 | ED.NAVMDI ---
HPI - Nausea/Vomiting/Diarrhea General Chief complaint: Nausea/Vomiting/Diarrhea Stated complaint: Throwing Up/Doctors Note Time Seen by Provider: 12/14/21 12:04 Source: patient Mode of arrival: ambulatory Limitations: no limitations History of Present Illness HPI Narrative: 21-year-old female presents requesting work note. States that she had to leave work early today due to nausea and vomiting. Vomited once while at work. Reports that she has had issues with nausea and vomiting for the past 3 weeks. Was prescribed Zofran and is scheduled to have follow-up up with her primary care physician. States that when she has been eating she feels full faster. No abdominal pain at this time. Nausea has resolved. States that she can go back to work tomorrow. All systems reviewed and negative except as noted above. Related Data Home Medications Medication Instructions Recorded Confirmed insulin glargine [Lantus U-100 30 unit SUBCUT HS 12/10/20 12/14/21 Insulin] sertraline [Zoloft] 100 mg PO DAILY 12/13/20 12/14/21 liraglutide [Victoza 3-Aristides] mg SUBCUT 11/22/21 metformin mg PO 11/22/21 Allergies Allergy/AdvReac Type Severity Reaction Status Date / Time No Known Allergies Allergy Verified 12/14/21 12:05 Review of Systems Review of Systems: CONSTITUTIONAL: Denies fever, chills, or sweats. EYES: Denies visual changes, redness, or discharge. ENT: Denies rhinorrhea, congestion, sore throat, or otalgia. CARDIOVASCULAR: Denies chest pain, palpitations, or edema. RESPIRATORY: Denies cough or dyspnea. GASTROINTESTINAL: Denies abdominal pain. Reports nausea, vomiting. Denies diarrhea. GENITOURINARY: Denies dysuria or hematuria. SKIN: Denies rash or itching. MUSCULOSKELETAL: Denies back pain, joint pain, or myalgia. NEUROLOGIC: Denies headache, numbness, or weakness. PSYCHIATRIC: Denies anxiety or depression. All other systems reviewed are negative, except as documented in HPI. [facility] Past Medical History Medical History Depression Heart disease High cholesterol Hx of migraines Ingrown toenail of both feet PCOS (polycystic ovarian syndrome) TMJ (dislocation of temporomandibular joint) Type 2 diabetes mellitus Surgical History Surgical History History of dental surgery History of toe surgery Bilateral for ingrown toenail Family History Family History Other Diabetes mellitus Heart disease Hypertension Social History Social History Smoking status: Never smoker Tobacco type: cigarettes Second hand tobacco smoke exposure: No Alcohol intake: never Substance use: never Substance use type: does not use Gender identity (if verbalized by the patient): Female Sexual Orientation (if Verbalized by the Patient): Straight or Heterosexual Comments At time of signature, agree with nursing past medical, surgical, social and family history. There is no relevant family history pertinent to the presenting complaint. Exam Narrative: GENERAL: This is a well-nourished, well-developed patient, in no apparent distress. HEAD: normocephalic, atraumatic. EYES: PERRL. Sclera clear/white. Vision is grossly intact. EARS: External ears normal NOSE: External nose normal NECK: Neck supple, non-tender without lymphadenopathy, masses or thyromegaly. CARDIOVASCULAR: Regular rate and rhythm without murmurs, gallops, or rubs. RESPIRATORY: Clear to auscultation. Breath sounds equal bilaterally. No wheezes, rales, or rhonchi. GASTROINTESTINAL: Abdomen soft, non-tender, nondistended. Bowel sounds are active. No hepato-splenomegaly, or palpable masses. No guarding. SKIN: warm, Dry, intact with no suspicious lesions or rash, good texture and turgor. NEURO: awake, alert, and oriented to person, place
== END 2021-12-14 12:15 | disposition home or self-care (01) ==
PROVIDERS: Emergency Provider Nurse Practitioner Family; PCP Physician Assistant
DX: R11.2 Nausea with vomiting, unspecified (principal); E78.00 Pure hypercholesterolemia, unspecified; E28.2 Polycystic ovarian syndrome; E11.9 Type 2 diabetes mellitus without complications; F32.A Depression, unspecified; Z79.4 Long term (current) use of insulin
CPT/HCPCS: 99211; G0463

== ENCOUNTER 2022-01-31 10:56 | Emergency (ER) | payer OTHER, SELFPAY ==
[2022-01-31] VITALS (9 sets, daily range): BP systolic 107–145; BP diastolic 63–81; PULSE 73–105; RESP 13–24; TEMP 36.2; O2SAT 98–100
--- NOTE | ~2022-01-31 | XR_ITS ---
EXAMINATION: XR chest 2V 01/31/2022 12:33 INDICATION: Dizziness PROCEDURE: AP and lateral views of the chest COMPARISON: No prior studies for comparison. 03/11/2021 FINDINGS: The lungs are clear. The cardiomediastinal silhouette is within normal limits. There are no pleural effusions. There is no pneumothorax suspected. IMPRESSION: 1: NO ACUTE CARDIOPULMONARY DISEASE. Reviewed, dictated and finalized at location A.
[2022-01-31 11:03] LABS: Glucose Point of Care 269 mg/dl (65-105)
[2022-01-31 11:19] LABS: Basophils Percent Auto 0.4 % (0.2-1.2); Eosinophils Absolute Auto 0.1 K/mm3 (0-0.3); Eosinophils Percent Auto 0.6 % (0-4.4); Hematocrit 40.5 % (37.0-47.0); Hemoglobin 13.7 g/dL (12.0-15.0); Immature Granulocyte Absolute 0.02 K/mm3 (0.00-0.031); Immature Granulocyte Percent A 0.2 % (0-0.5); Lymphocytes Absolute Auto 3.46 K/mm3 (0.9-3.2); Lymphocytes Percent Auto 38.5 % (18.3-44.2); Mean Corpuscular HGB Conc 33.8 g/dl (32-36); Mean Corpuscular Hemoglobin 29.6 pg (26-34); Mean Corpuscular Volume 87.5 fl (80-100); Mean Platelet Volume 10.1 fl (7.4-10.4); Monocytes Absolute Auto 0.6 K/mm3 (0.1-0.6); Neutrophils Absolute Auto 4.8 K/mm3 (1.3-6.7); Neutrophils Percent Auto 53.3 % (45.5-73.1); Platelet Count Result 284 k/mm3 (150-375); Red Blood Count 4.63 M/mm3 (4.2-5.4); Red Cell Distribution Width 12.5 % (11.5-14.5)
[2022-01-31 11:28] LABS: Alanine Aminotransferase 15 U/L (6-35); Albumin Level 3.9 g/dL (3.5-5.1); Alkaline Phosphatase 99 U/L (38-126); Anion Gap 6 mmol/L (8-16); Aspartate Amino Transferase 18 U/L (14-36); Bilirubin,Total 0.9 mg/dL (0.2-1.3); Blood Urea Nitrogen 16 mg/dL (7-17); Calcium 8.8 mg/dL (8.4-10.2); Carbon Dioxide 25 mmol/L (22-30); Chloride 104 mmol/L (98-107); Estimated CRCL calculation 174 ml/min; Estimated Glomerular Filt Rate > 60; Glucose 261 mg/dL (65-110); Magnesium 1.8 mg/dL (1.6-2.3); Phosphorus 3.8 mg/dL (2.5-4.5); Potassium 4.2 mmol/L (3.4-5.0); Sodium 135 mmol/L (137-145)
[2022-01-31 11:32] LABS: Beta-Hydroxybutyrate/Acetoacetate 0.15 mmol/L (0.02-0.27)
[2022-01-31 11:37] LABS: Appearance Urine Clear (Clear); Bilirubin Urine Negative (Negative); Blood Urine Negative (Negative); Color Urine Yellow (Yellow); Glucose Urine UA 3+ mg/dL (Negative); Ketones Urine Trace mg/dL (Negative); Leukocyte Esterase Ur Negative LEU/UL (Negative); Nitrate Urine Negative (Negative); Protein Urine Negative (Negative); Specific Grav Ur >= 1.030 (1.001-1.035); Urobilinogen Urine 0.2 mg/dL (<2.0); pH Urine 5.5 (5.0-9.0)
[2022-01-31 11:43] LABS: Mucus Urine Rare /lpf; Squamous Epithelial Cell Urine Many /hpf (Few)
[2022-01-31 11:44] LABS: Add Urine Microscopic? YES
--- NOTE | 2022-01-31 12:08 | ECG_ITS ---
Measurements Intervals [place] Rate: 75 P: 17 MD: 128 QRS: 48 QRSD: 87 T: 25 QT: 388 QTc: 435 Interpretive Statements SINUS RHYTHM NORMAL ECG COMPARED TO ECG 10/01/2021 02:11:04 NO SIGNIFICANT CHANGES Electronically Signed On 01-31-2022 17:18:48 CDT by Diego Tan M.D.
--- NOTE | 2022-01-31 12:17 | ED.DIZZY ---
HPI - Dizziness General Chief Complaint: Dizziness Stated Complaint: lightheaded i think it might be my diabetes Time Seen by Provider: 01/31/22 11:58 Source: patient History of Present Illness HPI Narrative: Patient presents with lightheadedness and not feeling well. Shortness not felt well for the past couple days does not seem to be getting better so she came to ER for evaluation. Versus been feeling dizzy like she is going to pass out she had chest pain yesterday that is resolved. Denies any nausea or vomiting she denies any diarrhea or constipation. She has had increased urinary frequency denies any dysuria. Denies any cough, congestion, fevers. She does note her sugars have been running high despite insulin therapy Related Data Home Medications Medication Instructions Recorded Confirmed insulin glargine 100 unit/mL 30 unit subcut HS 12/10/20 12/14/21 subcutaneous cartridge sertraline 100 mg tablet (Zoloft) 100 mg PO DAILY 12/13/20 12/14/21 liraglutide 0.6 mg/0.1 mL (18 mg/3 mg subcut 11/22/21 mL) subcutaneous pen injector (Victoza 3-Aristides) metformin 500 mg tablet,extended mg PO 11/22/21 release 24 hr Allergies Allergy/AdvReac Type Severity Reaction Status Date / Time No Known Allergies Allergy Verified 01/31/22 11:36 Review of Systems Review of Systems: CONSTITUTIONAL: Denies fever, chills, or sweats. EYES: Denies visual changes, redness, or discharge. ENT: Denies rhinorrhea, congestion, sore throat, or otalgia. CARDIOVASCULAR: Denies palpitations, or edema. RESPIRATORY: Denies cough or dyspnea. GASTROINTESTINAL: Denies abdominal pain, nausea, vomiting, or diarrhea. GENITOURINARY: Denies dysuria or hematuria. SKIN: Denies rash or itching. MUSCULOSKELETAL: Denies back pain, joint pain, or myalgia. NEUROLOGIC: Denies headache, numbness, or focal weakness. PSYCHIATRIC: Denies anxiety or depression. All systems reviewed & are unremarkable except as noted in HPI and below PMFSH Past Medical History Medical History Depression Heart disease High cholesterol Hx of migraines Ingrown toenail of both feet PCOS (polycystic ovarian syndrome) TMJ (dislocation of temporomandibular joint) Type 2 diabetes mellitus Surgical History Surgical History History of dental surgery History of toe surgery Bilateral for ingrown toenail Family History Family History Other Diabetes mellitus Heart disease Hypertension Social History Social History Smoking status: Never smoker Tobacco type: cigarettes Second hand tobacco smoke exposure: No Alcohol intake: never Substance use: never Substance use type: does not use Gender identity (if verbalized by the patient): Female Sexual Orientation (if Verbalized by the Patient): Straight or Heterosexual Exam Narrative: GENERAL: Well-appearing, well-nourished, and in no acute distress. HEAD: Normocephalic, atraumatic. EYES: PERRLA and EOMI. ENT: Nares clear, no rhinorrhea or epistaxis. Mucous membranes moist. NECK: Supple. No masses. No JVD CHEST: Clear to auscultation. No respiratory distress. No wheezes rales or rhonchi HEART: Regular rate and rhythm. No murmur heard. Normal peripheral pulses. ABDOMEN: Soft, nontender, nondistended, normal active bowel sounds. EXTREMITIES: Normal range of motion. No edema. SKIN: Warm, dry, no rash. NEURO: No focal deficits. Alert and oriented x3. PSYCH: Normal mood and affect. Course Reevaluation(s) Reevaluation #1: Patient was sleeping easily awoke results and plan reviewed with the patient patient is comfortable with outpatient plan. Date: 01/31/22 Time: 14:01 Vital Signs Vital signs: Vital Signs Temperature 36.2 C L 01/31/22 10:59 Pulse Rate 91 01/31/22 10:59 Respir
[2022-01-31] MEDS: SODIUM CHLORIDE 0.9% IV 1,000 ML 999 ML IV CONT ×2 (12:59→13:50)
== END 2022-01-31 15:34 | disposition home or self-care (01) ==
PROVIDERS: Emergency Medicine; Emergency Provider Emergency Medicine; PCP Physician Assistant
DX: E11.65 Type 2 diabetes mellitus with hyperglycemia (principal); R35.0 Frequency of micturition; Z79.4 Long term (current) use of insulin
CPT/HCPCS: 36415; 71046; 80053; 81001; 81025; 82010; 82948; 83735; 84100; 85025; 87086; 87088; 93005; 96360; 99283; J7030

== ENCOUNTER 2022-02-04 10:54 | Emergency (ER) | payer OTHER, SELFPAY ==
[2022-02-04] VITALS (17 sets, daily range): BP systolic 105–122; BP diastolic 59–72; PULSE 79–95; RESP 16–20; TEMP 36.4; O2SAT 97–100
[2022-02-04 11:31] LABS: Glucose Point of Care 272 mg/dl (65-105)
--- NOTE | 2022-02-04 11:56 | ED.NAVMDI ---
HPI - Nausea/Vomiting/Diarrhea General Chief complaint: Nausea/Vomiting/Diarrhea Stated complaint: n/v Time Seen by Provider: 02/04/22 11:53 History of Present Illness HPI Narrative: 21-year-old female presents to the emergency room with ongoing vomiting and diarrhea for 5 days. Patient states that she was seen here in the emergency room for the same symptoms, and was given IV fluids and antiemetics. Patient was sent home from the ER stating she had felt better. Patient states symptoms returned the following day. Patient states that she has labile blood sugars, and they have been high recently. Patient is also been complaining of intermittent diarrhea for several months, and has not followed up with her primary care physician. Related Data Home Medications Medication Instructions Recorded Confirmed insulin glargine 100 unit/mL 30 unit subcut HS 12/10/20 12/14/21 subcutaneous cartridge sertraline 100 mg tablet (Zoloft) 100 mg PO DAILY 12/13/20 12/14/21 liraglutide 0.6 mg/0.1 mL (18 mg/3 mg subcut 11/22/21 mL) subcutaneous pen injector (Victoza 3-Arisitdes) metformin 500 mg tablet,extended mg PO 11/22/21 release 24 hr Allergies Allergy/AdvReac Type Severity Reaction Status Date / Time No Known Allergies Allergy Verified 01/31/22 11:36 Review of Systems Review of Systems: CONSTITUTIONAL: Denies fever, chills, or sweats. EYES: Denies visual changes, redness, or discharge. ENT: Denies rhinorrhea, congestion, sore throat, or otalgia. CARDIOVASCULAR: Denies chest pain, palpitations, or edema. RESPIRATORY: Denies cough or dyspnea. GASTROINTESTINAL: Reports vomiting and diarrhea GENITOURINARY: Denies dysuria or hematuria. SKIN: Denies rash or itching. MUSCULOSKELETAL: Denies back pain, joint pain, or myalgia. NEUROLOGIC: Denies headache, numbness, dizziness, or weakness. PSYCHIATRIC: Denies anxiety or depression. REPLACED BY [facility] Past Medical History Medical History Depression Heart disease High cholesterol Hx of migraines Ingrown toenail of both feet PCOS (polycystic ovarian syndrome) TMJ (dislocation of temporomandibular joint) Type 2 diabetes mellitus Surgical History Surgical History History of dental surgery History of toe surgery Bilateral for ingrown toenail Family History Family History Other Diabetes mellitus Heart disease Hypertension Social History Social History Smoking status: Never smoker Tobacco type: cigarettes Second hand tobacco smoke exposure: No Alcohol intake: never Substance use: never Substance use type: does not use Gender identity (if verbalized by the patient): Female Sexual Orientation (if Verbalized by the Patient): Straight or Heterosexual Exam Narrative: GENERAL: Well-appearing, well-nourished, and in no acute distress. HEAD: Normocephalic, atraumatic. EYES: PERRLA and EOMI. CHEST: Clear to auscultation. No respiratory distress. No wheezes rales or rhonchi HEART: Regular rate and rhythm. No murmur heard. Normal peripheral pulses. ABDOMEN: Soft, nontender, morbidly obese, normal active bowel sounds. EXTREMITIES: Normal range of motion. No edema. SKIN: Warm, dry, no rash. NEURO: No focal deficits. Alert and oriented x3. PSYCH: Flat affect. Course Vital Signs Vital signs: Vital Signs Temperature 36.4 C L 02/04/22 11:21 Pulse Rate 95 02/04/22 11:21 Respiratory Rate 16 02/04/22 11:21 Blood Pressure 122/66 02/04/22 11:21 Pulse Oximetry 97 02/04/22 11:21 Oxygen Delivery Room Air 02/04/22 11:21 Temperature 36.4 C L 02/04/22 11:21 Pulse Rate 95 02/04/22 11:21 Respiratory Rate 16 02/04/22 11:21 Blood Pressure 122/66 02/04/22 11:21 Pulse Oximetry 97 02/04/22 11:21 Oxygen Delivery Room Air
--- NOTE | 2022-02-04 12:00 | PC.NURSE ---
EDP at bedside to assess pt.
[2022-02-04 12:02] LABS: Basophils Percent Auto 0.4 % (0.2-1.2); Eosinophils Absolute Auto 0.1 K/mm3 (0-0.3); Eosinophils Percent Auto 0.6 % (0-4.4); Hematocrit 40.1 % (37.0-47.0); Hemoglobin 13.5 g/dL (12.0-15.0); Immature Granulocyte Absolute 0.01 K/mm3 (0.00-0.031); Immature Granulocyte Percent A 0.1 % (0-0.5); Lymphocytes Absolute Auto 3.09 K/mm3 (0.9-3.2); Lymphocytes Percent Auto 39.9 % (18.3-44.2); Mean Corpuscular HGB Conc 33.7 g/dl (32-36); Mean Corpuscular Hemoglobin 29.7 pg (26-34); Mean Corpuscular Volume 88.3 fl (80-100); Mean Platelet Volume 10.4 fl (7.4-10.4); Monocytes Absolute Auto 0.5 K/mm3 (0.1-0.6); Monocytes Percent Auto 6.7 % (2.6-8.5); Neutrophils Percent Auto 52.3 % (45.5-73.1); Platelet Count Result 304 k/mm3 (150-375); Red Blood Count 4.54 M/mm3 (4.2-5.4); Red Cell Distribution Width 12.3 % (11.5-14.5); White Blood Count 7.7 K/mm3 (4.5-10.0)
[2022-02-04] MEDS: SODIUM CHLORIDE 0.9% IV 1,000 ML 999 ML IV CONT (12:05)
[2022-02-04 12:06] LABS: Appearance Urine Clear (Clear); Bilirubin Urine Negative (Negative); Blood Urine Negative (Negative); Color Urine Yellow (Yellow); Glucose Urine UA 1+ mg/dL (Negative); Ketones Urine Negative (Negative); Leukocyte Esterase Ur Negative LEU/UL (Negative); Nitrate Urine Negative (Negative); Protein Urine Negative (Negative); Specific Grav Ur 1.025 (1.001-1.035); Urobilinogen Urine 0.2 mg/dL (<2.0)
[2022-02-04] MEDS: ONDANSETRON INJ 4 MG/2 ML VIAL IV PUSH (12:06)
[2022-02-04 12:10] LABS: Mucus Urine Rare /lpf; RBC Urine 0-2 /hpf (0-2); Squamous Epithelial Cell Urine Occasional /hpf (Few); WBC Urine 0-3 /hpf
[2022-02-04 12:11] LABS: Alanine Aminotransferase 16 U/L (6-35); Albumin Level 4.1 g/dL (3.5-5.1); Alkaline Phosphatase 96 U/L (38-126); Anion Gap 5 mmol/L (8-16); Aspartate Amino Transferase 17 U/L (14-36); Bilirubin,Total 0.8 mg/dL (0.2-1.3); Blood Urea Nitrogen 12 mg/dL (7-17); Calcium 8.9 mg/dL (8.4-10.2); Carbon Dioxide 28 mmol/L (22-30); Chloride 102 mmol/L (98-107); Estimated CRCL calculation 177 ml/min; Estimated Glomerular Filt Rate > 60; Glucose 269 mg/dL (65-110); Lipase 29 U/L (23-300); Sodium 135 mmol/L (137-145)
[2022-02-04 12:18] LABS: Add Urine Microscopic? YES
[2022-02-04] MEDS: DICYCLOMINE HCL INJ 20 MG/2 ML VIAL IM (12:22)
== END 2022-02-04 13:58 | disposition home or self-care (01) ==
PROVIDERS: Emergency Medicine; Emergency Provider Nurse Practitioner Family; PCP Physician Assistant
DX: K52.9 Noninfective gastroenteritis and colitis, unspecified (principal); I51.9 Heart disease, unspecified; E11.9 Type 2 diabetes mellitus without complications; E28.2 Polycystic ovarian syndrome; E78.00 Pure hypercholesterolemia, unspecified; F32.A Depression, unspecified; Z79.4 Long term (current) use of insulin; Z79.84 Long term (current) use of oral hypoglycemic drugs
CPT/HCPCS: 36415; 80053; 81001; 81025; 82948; 83690; 85025; 96361; 96372; 96374; 99284; J0500; J2405; J7030

== ENCOUNTER 2022-03-12 08:01 | Emergency (ER) | payer OTHER, SELFPAY ==
[2022-03-12] VITALS (19 sets, daily range): BP systolic 105–126; BP diastolic 53–74; PULSE 71–101; RESP 15–20; TEMP 36.3; O2SAT 95–99
--- NOTE | ~2022-03-12 | CT_ITS ---
EXAMINATION: CT abdomen pelvis w con DATE: 03/12/2022 10:02 INDICATION: Diffuse lower abdominal pain TECHNIQUE: Computed tomography (CT) of the abdomen and pelvis was performed with 100 CC Omnipaque 300 intravenous contrast. Automated exposure control and iterative reconstruction technique were employe d. Exam dose: 1435.56 mGy-cm total exam DLP. COMPARISON: 12/04/2021 CT abdomen pelvis FINDINGS: The lung bases are clear of infiltrate or consolidation. Normal heart size. No pericardial or pleural effusion. Diffuse hepatic steatosis. No hepatic space-occupying mass lesion. The gallbladder is present and kristy ears unremarkable. No bile duct or pancreatic duct dilatation. No pancreatic mass lesion. Normal sple nanci size. Normal morphology of the adrenal glands. No renal mass lesion or urinary tract calculus or hydroureteronephrosis. The urinary bladder, uterus and adnexal areas are unremarkable. Normal caliber of the abdominal aorta. No intraperitoneal or retroperitoneal or pelvic mass lesion or adenopathy or ascites. No evidence of appendicitis. No bowel obstruction, bowel wall thickening, pneumatosis or intraperiton eal free air. Very small fat-containing umbilical hernia. Included skeletal structures are unremarkable. IMPRESSION: Hepatic steatosis Reviewed, dictated and finalized at [facility]. Reviewed, dictated and finalized at location [facility]. IMPRESSION: Hepatic steatosis
--- NOTE | ~2022-03-12 | US_ITS ---
EXAMINATION: US pelvic complete DATE: 03/12/2022 13:10 INDICATION: Pelvic cramping. Ovarian torsion. TECHNIQUE: Multiple transabdominal sonographic images of the pelvis were obtained. COMPARISON: CT abdomen and pelvis 03/12/2022 FINDINGS: The uterus measures 7.0 x 2.1 x 3.5 cm. There is no free fluid in the pelvis. The endometrial complex measures 4 mm in thickness. The right ovary measures 3.6 x 1.9 x 1.8 cm. The left ovary measures 6.0 x 1.8 x 1.3 cm. There is normal vascular flow in the ovaries. IMPRESSION: 1. Normal pelvis. Reviewed, dictated and finalized at location [facility]. IMPRESSION: 1. Normal pelvis.
--- NOTE | 2022-03-12 08:40 | ED.FEMALEGU ---
HPI - Female Genitourinary General Chief complaint: Vaginal Bleeding Stated complaint: prolonged period with dizziness x 3 days Time Seen by Provider: 03/12/22 08:39 Source: patient and RN notes reviewed Mode of arrival: ambulatory Limitations: no limitations History of Present Illness HPI Narrative: 21 years old white female, vaginal bleeding since March 01 associated with mild lower abdominal cramps which she got worse over the last 3 days. Patient still bleeding. She never had similar symptoms. She denies any fever, chills, nausea, vomiting. History of PCOS, diabetes, migraine headache. Patient does not smoke or drink or uses drugs Related Data Home Medications Medication Instructions Recorded Confirmed insulin glargine 100 unit/mL 30 unit subcut HS 12/10/20 12/14/21 subcutaneous cartridge sertraline 100 mg tablet (Zoloft) 100 mg PO DAILY 12/13/20 12/14/21 metformin 500 mg tablet,extended mg PO 11/22/21 release 24 hr albuterol sulfate 90 mcg/actuation inhalation PRN 03/12/22 aerosol inhaler Allergies Allergy/AdvReac Type Severity Reaction Status Date / Time No Known Allergies Allergy Verified 03/12/22 10:19 Review of Systems Review of Systems: All systems reviewed & are unremarkable except as noted in HPI and below PMFSH Past Medical History Medical History Depression Heart disease High cholesterol Hx of migraines Ingrown toenail of both feet PCOS (polycystic ovarian syndrome) TMJ (dislocation of temporomandibular joint) Type 2 diabetes mellitus Surgical History Surgical History History of dental surgery History of toe surgery Bilateral for ingrown toenail Family History Family History Other Diabetes mellitus Heart disease Hypertension Social History Social History Smoking status: Never smoker Tobacco type: cigarettes Second hand tobacco smoke exposure: No Alcohol intake: never Substance use: never Substance use type: does not use Gender identity (if verbalized by the patient): Female Sexual Orientation (if Verbalized by the Patient): Straight or Heterosexual Exam Narrative: General appearance: Well-developed, well-nourished Skin: Normal color Head: Normocephalic, nontraumatic Eyes: Clear conjunctiva ENT: Oropharynx normal, ears normal, nose normal Neck: Supple, nontender Chest and respiratory: Airway patent, no respiratory distress, no accessory muscle use Heart: Regular rate/rhythm Abdomen: Soft, diffuse severe tenderness across lower abdomen, lower quadrants bilaterally, quiet bowel sounds Vascular: Normal peripheral pulses, normal capillary refill. Musculoskeletal: Normal range of motion, nontender back Neurologic: Alert and oriented ?3, POLICE LIAISON is normal as tested, no gross motor deficit : Speculum Exam - Vagina: normal appearance of the vagina and vaginal bleeding (1-1/2 long Q-tip was enough to dry the whole vaginal pouch) Speculum Exam - Cervix: normal appearance of the cervix and Cervical os closed Bimanual Exam- Adnexa, other: no masses Course Course Emergency Course: Work-up today showed no significant finding to explain patient condition. Flareup of polycystic ovarian cyst is my concern. 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 Vital Signs Vital signs: Vital Signs Temperature 36.3 C L 03/12/22 08:10 Pulse Rate 95 03/12/22 08:10 Respiratory Rate 18 03/12/22 08:10 Blood Pressure 126/72 03/12/22 08:10 Pulse Oximetry 98
[2022-03-12 09:05] LABS: Basophils Percent Auto 0.3 % (0.2-1.2); Eosinophils Absolute Auto 0.1 K/mm3 (0-0.3); Eosinophils Percent Auto 0.7 % (0-4.4); Hematocrit 42.7 % (37.0-47.0); Hemoglobin 14.5 g/dL (12.0-15.0); Immature Granulocyte Absolute 0.03 K/mm3 (0.00-0.031); Immature Granulocyte Percent A 0.3 % (0-0.5); Lymphocytes Absolute Auto 3.82 K/mm3 (0.9-3.2); Lymphocytes Percent Auto 42.2 % (18.3-44.2); Mean Corpuscular Hemoglobin 29.8 pg (26-34); Mean Corpuscular Volume 87.7 fl (80-100); Mean Platelet Volume 10.4 fl (7.4-10.4); Monocytes Absolute Auto 0.6 K/mm3 (0.1-0.6); Monocytes Percent Auto 6.4 % (2.6-8.5); Neutrophils Absolute Auto 4.5 K/mm3 (1.3-6.7); Neutrophils Percent Auto 50.1 % (45.5-73.1); Platelet Count Result 284 k/mm3 (150-375); Red Blood Count 4.87 M/mm3 (4.2-5.4); Red Cell Distribution Width 12.4 % (11.5-14.5); White Blood Count 9.1 K/mm3 (4.5-10.0)
[2022-03-12 09:23] LABS: Alanine Aminotransferase 16 U/L (6-35); Albumin Level 4.4 g/dL (3.5-5.1); Alkaline Phosphatase 100 U/L (38-126); Anion Gap 11 mmol/L (8-16); Aspartate Amino Transferase 19 U/L (14-36); Bilirubin,Total 0.5 mg/dL (0.2-1.3); Blood Urea Nitrogen 15 mg/dL (7-17); Calcium 9.4 mg/dL (8.4-10.2); Carbon Dioxide 20 mmol/L (22-30); Chloride 101 mmol/L (98-107); Estimated CRCL calculation 175 ml/min; Estimated Glomerular Filt Rate > 60; Glucose 328 mg/dL (65-110); Potassium 3.9 mmol/L (3.4-5.0); Sodium 132 mmol/L (137-145)
[2022-03-12] MEDS: ONDANSETRON INJ 4 MG/2 ML VIAL IV PUSH (09:28)
[2022-03-12] MEDS: MORPHINE SULFATE (*CRX) 4 MG/ML INJ IV PUSH (09:29)
[2022-03-12] MEDS: SODIUM CHLORIDE 0.9% IV 1,000 ML 999 ML IV CONT (09:32)
[2022-03-12 09:37] LABS: Beta HCG Quantitative < 2.39 mIU/ML
[2022-03-12 10:41] LABS: Appearance Urine Clear (Clear); Bilirubin Urine 1+ (Negative); Blood Urine 3+ (Negative); Glucose Urine UA 3+ mg/dL (Negative); Ketones Urine 3+ mg/dL (Negative); Leukocyte Esterase Ur Negative LEU/UL (Negative); Nitrate Urine Negative (Negative); Protein Urine Negative (Negative); Specific Grav Ur <= 1.005 (1.001-1.035); Urobilinogen Urine 0.2 mg/dL (<2.0)
[2022-03-12 10:48] LABS: Mucus Urine Rare /lpf; Squamous Epithelial Cell Urine Few /hpf (Few); WBC Urine 0-3 /hpf
[2022-03-12 10:54] LABS: Add Urine Microscopic? YES; Color Urine Light Yellow (Yellow)
[2022-03-12] MEDS: KETOROLAC 30 MG/ML VIAL (*BKC) IV PUSH (12:34)
== END 2022-03-12 14:38 | disposition home or self-care (01) ==
PROVIDERS: Emergency Provider Emergency Medicine; PCP Physician Assistant
DX: N93.8 Other specified abnormal uterine and vaginal bleeding (principal); E28.2 Polycystic ovarian syndrome; E11.9 Type 2 diabetes mellitus without complications; Z79.4 Long term (current) use of insulin
CPT/HCPCS: 36415; 74177; 76856; 80053; 81001; 81025; 84702; 85025; 96361; 96374; 96375; 99284; J1885; J2270; J2405; J7030; Q9967

== ENCOUNTER 2022-04-16 08:18 | Emergency (ER) | payer OTHER, SELFPAY ==
[2022-04-16 08:33] VITALS: BP 140/88; PULSE 99; RESP 14; TEMP 36.6; O2SAT 99
[2022-04-16 08:46] LABS: Basophils Percent Auto 0.3 % (0.2-1.2); Eosinophils Absolute Auto 0.1 K/mm3 (0-0.3); Eosinophils Percent Auto 0.4 % (0-4.4); Hematocrit 41.4 % (37.0-47.0); Hemoglobin 14.1 g/dL (12.0-15.0); Immature Granulocyte Absolute 0.04 K/mm3 (0.00-0.031); Immature Granulocyte Percent A 0.3 % (0-0.5); Lymphocytes Absolute Auto 3.28 K/mm3 (0.9-3.2); Lymphocytes Percent Auto 26.6 % (18.3-44.2); Mean Corpuscular HGB Conc 34.1 g/dl (32-36); Mean Corpuscular Hemoglobin 29.7 pg (26-34); Mean Corpuscular Volume 87.3 fl (80-100); Mean Platelet Volume 10.3 fl (7.4-10.4); Monocytes Absolute Auto 0.7 K/mm3 (0.1-0.6); Monocytes Percent Auto 5.4 % (2.6-8.5); Neutrophils Absolute Auto 8.3 K/mm3 (1.3-6.7); Platelet Count Result 320 k/mm3 (150-375); Red Blood Count 4.74 M/mm3 (4.2-5.4); White Blood Count 12.3 K/mm3 (4.5-10.0)
[2022-04-16 08:50] LABS: Appearance Urine Cloudy (Clear); Bilirubin Urine Negative (Negative); Blood Urine 3+ (Negative); Glucose Urine UA 3+ mg/dL (Negative); Ketones Urine 1+ mg/dL (Negative); Leukocyte Esterase Ur 2+ LEU/UL (Negative); Nitrate Urine Negative (Negative); Protein Urine 1+ mg/dL (Negative); Specific Grav Ur 1.015 (1.001-1.035); Urobilinogen Urine 0.2 mg/dL (<2.0)
[2022-04-16 08:52] LABS: Add Urine Microscopic? YES; Color Urine Light Yellow (Yellow)
[2022-04-16] MEDS: HYDROcodone/acetaminophen (*CRX) 5-325 MG TABLET 1 TAB PO (08:52)
[2022-04-16 08:53] LABS: Bacteria Urine Trace /hpf; RBC Urine 51-75 /hpf (0-2); Squamous Epithelial Cell Urine Rare /hpf (Few); WBC Urine >75 /hpf
[2022-04-16 08:56] LABS: Alanine Aminotransferase 17 U/L (6-35); Albumin Level 4.4 g/dL (3.5-5.1); Alkaline Phosphatase 118 U/L (38-126); Anion Gap 11 mmol/L (8-16); Aspartate Amino Transferase 19 U/L (14-36); Bilirubin,Total 0.7 mg/dL (0.2-1.3); Blood Urea Nitrogen 13 mg/dL (7-17); Calcium 9.4 mg/dL (8.4-10.2); Carbon Dioxide 25 mmol/L (22-30); Chloride 94 mmol/L (98-107); Estimated Glomerular Filt Rate > 60; Glucose 315 mg/dL (65-110); Lipase 22 U/L (23-300); Potassium 3.9 mmol/L (3.4-5.0); Sodium 130 mmol/L (137-145)
[2022-04-16] MEDS: KETOROLAC 30 MG/ML VIAL (*BKC) (09:35)
[2022-04-16] MEDS: cefTRIAXone 2 GM in SODIUM CHLORIDE 0.9% IV 100 ML 200 ML IVPB (09:37)
--- NOTE | 2022-04-16 09:46 | ED.FEMALEGU ---
HPI - Female Genitourinary General Chief complaint: Urogenital-Female Stated complaint: uti Time Seen by Provider: 04/16/22 08:22 History of Present Illness HPI Narrative: 21-year-old female presents with bilateral flank pain, and several days of pain with urination before this. She states that she has had kidney infections before and this feels similar. No nausea, fevers or chills. Related Data Home Medications Medication Instructions Recorded Confirmed insulin glargine 100 unit/mL 30 unit subcut HS 12/10/20 12/14/21 subcutaneous cartridge sertraline 100 mg tablet (Zoloft) 100 mg PO DAILY 12/13/20 12/14/21 metformin 500 mg tablet,extended mg PO 11/22/21 release 24 hr albuterol sulfate 90 mcg/actuation inhalation PRN 03/12/22 aerosol inhaler Allergies Allergy/AdvReac Type Severity Reaction Status Date / Time No Known Allergies Allergy Verified 04/16/22 08:35 Review of Systems Review of Systems: CONST: No fever. HEENT: No sore throat C/V: No chest pain RESP: No cough GI: Reports bilateral flank. : dysuria. M/S: No joint pain. SKIN: No rash. NEURO: [No headache or focal numbness or weakness] PSYCH: [No depression] [facility] Past Medical History Medical History Depression Heart disease High cholesterol Hx of migraines Ingrown toenail of both feet PCOS (polycystic ovarian syndrome) TMJ (dislocation of temporomandibular joint) Type 2 diabetes mellitus Surgical History Surgical History History of dental surgery History of toe surgery Bilateral for ingrown toenail Family History Family History Other Diabetes mellitus Heart disease Hypertension Social History Social History Smoking status: Never smoker Tobacco type: cigarettes Second hand tobacco smoke exposure: No Alcohol intake: never Substance use: never Substance use type: does not use Gender identity (if verbalized by the patient): Female Sexual Orientation (if Verbalized by the Patient): Straight or Heterosexual Exam Narrative: EXAMINATION OF ORGAN SYSTEMS/BODY AREAS: Constitutional: Vital signs per nursing GENERAL: Appears quite uncomfortable in bed HEAD: Normal with no signs of head trauma. EYES: EOMI, conjunctiva normal ENT: Hearing grossly intact LUNGS: Nonlabored breathing. HEART: [Regular rate and rhythm] ABD: [Soft], bilateral flank tenderness EXT: Normal range of motion SKIN: [No rashes or lesions.] NEURO: [Alert and oriented x 3. No gross focal sensory or strength deficits.] PSYCH: Normal affect Course Vital Signs Vital signs: Vital Signs Temperature 97.8 F 04/16/22 08:33 Pulse Rate 99 04/16/22 08:33 Respiratory Rate 14 04/16/22 08:33 Blood Pressure 140/88 04/16/22 08:33 Pulse Oximetry 99 04/16/22 08:33 Oxygen Delivery Room Air 04/16/22 08:33 Temperature 97.8 F 04/16/22 08:33 Pulse Rate 88 04/16/22 10:45 Respiratory Rate 19 04/16/22 10:45 Blood Pressure 123/87 04/16/22 10:45 Pulse Oximetry 97 04/16/22 10:45 Oxygen Delivery Room Air 04/16/22 08:33 MDM - Female Genitourinary MDM Narrative Medical decision making narrative: 21-year-old female year-old patient presenting with flank pain and urinary symptoms consistent with UTI. Urinalysis is obtained and positive for signs of infection. Urine culture sent. [ test is negative.] Patient given 1 dose of ceftriaxone and started on Bactrim, and strongly advised to return for any increasing or worsening pain, fevers or vomiting. Patient offered CT scan to rule out stones but declined this. They expressed understanding of instructions and is discharged in stable condition. Procedures: Pulse oximetry interpretation - not hypoxic. Review of medical records. Lab Data Result diagrams:
[2022-04-16 10:45] VITALS: BP 123/87; PULSE 88; RESP 19; O2SAT 97
== END 2022-04-16 10:45 | disposition home or self-care (01) ==
PROVIDERS: Emergency Provider Emergency Medicine; PCP Physician Assistant
DX: N12 Tubulo-interstitial nephritis, not specified as acute or chronic (principal); E78.00 Pure hypercholesterolemia, unspecified; I51.9 Heart disease, unspecified; E28.2 Polycystic ovarian syndrome; E11.9 Type 2 diabetes mellitus without complications; F32.A Depression, unspecified; Z79.4 Long term (current) use of insulin; Z79.84 Long term (current) use of oral hypoglycemic drugs
CPT/HCPCS: 36415; 80053; 81001; 81025; 83690; 85025; 87077; 87086; 87088; 96365; 96375; 99284; A9270; J0696; J1885

== ENCOUNTER 2022-04-28 23:07 | Emergency (ER) | payer OTHER, SELFPAY ==
--- NOTE | ~2022-04-28 | XR_ITS ---
EXAMINATION: XR humerus LT DATE: 04/29/2022 01:13 INDICATION: Left upper arm pain. TECHNIQUE: 2 views of left humerus were obtained. COMPARISON: None. FINDINGS: Bone alignment is normal. No fracture. Joint spaces are normal. There is a 3.6 cm linear rosenberg bcutaneous implant in the upper arm. IMPRESSION: 1. No etiology for the patient's symptoms. Reviewed, dictated and finalized at location [facility].
[2022-04-28 23:16] VITALS: BP 145/84; PULSE 91; RESP 20; TEMP 36.4; O2SAT 100
--- NOTE | 2022-04-29 01:00 | ED.UPPEXIN ---
HPI - Extremity Injury (Upper) General Chief Complaint: Extremity Injury, Upper Stated Complaint: Feels like her Nexplanon broke in her arm Time Seen by Provider: 04/29/22 00:44 Source: patient Mode of arrival: ambulatory Limitations: no limitations History of Present Illness HPI narrative: This is a 21 year old female that presents to the ER for left arm pain today. Reports pain at the area of her Nexplanon. Reports it started hurting after she was lifting weights. There was no certain trauma to the area. She has not taken anything for pain. Denies fever or erythema. Related Data Home Medications Medication Instructions Recorded Confirmed insulin glargine 100 unit/mL 30 unit subcut HS 12/10/20 12/14/21 subcutaneous cartridge sertraline 100 mg tablet (Zoloft) 100 mg PO DAILY 12/13/20 12/14/21 metformin 500 mg tablet,extended mg PO 11/22/21 release 24 hr albuterol sulfate 90 mcg/actuation inhalation PRN 03/12/22 aerosol inhaler Allergies Allergy/AdvReac Type Severity Reaction Status Date / Time No Known Allergies Allergy Verified 04/28/22 23:19 Review of Systems Review of Systems: CONSTITUTIONAL: Denies fever SKIN: Denies rash All systems reviewed & are unremarkable except as noted in HPI and below PMFSH Past Medical History Medical History Depression Heart disease High cholesterol Hx of migraines Ingrown toenail of both feet PCOS (polycystic ovarian syndrome) TMJ (dislocation of temporomandibular joint) Type 2 diabetes mellitus Surgical History Surgical History History of dental surgery History of toe surgery Bilateral for ingrown toenail Family History Family History Other Diabetes mellitus Heart disease Hypertension Social History Social History Smoking status: Never smoker Tobacco type: cigarettes Second hand tobacco smoke exposure: No Alcohol intake: never Substance use: never Substance use type: does not use Gender identity (if verbalized by the patient): Female Sexual Orientation (if Verbalized by the Patient): Straight or Heterosexual Exam Narrative: GENERAL: Well-appearing, well-nourished, and in no acute distress. HEAD: Normocephalic, atraumatic. EYES: EOMI. EXTREMITIES: Normal range of motion. No edema or erythema. Nexplanon feels to be intact, patient tender to palpation in the area SKIN: Warm, dry, no rash. NEURO: No focal deficits. Alert and oriented x3. PSYCH: Normal mood and affect Course Vital Signs Vital signs: Vital Signs Temperature 97.6 F 04/28/22 23:16 Pulse Rate 91 04/28/22 23:16 Respiratory Rate 20 04/28/22 23:16 Blood Pressure 145/84 H 04/28/22 23:16 Pulse Oximetry 100 04/28/22 23:16 Oxygen Delivery Room Air 04/28/22 23:16 Temperature 97.6 F 04/28/22 23:16 Pulse Rate 91 04/28/22 23:16 Respiratory Rate 20 04/28/22 23:16 Blood Pressure 115/61 04/29/22 01:49 Pulse Oximetry 100 04/28/22 23:16 Oxygen Delivery Room Air 04/28/22 23:16 MDM - Extremity Injury (Upper) MDM Narrative Medical decision making narrative: Patient presents to the emergency department for discomfort of her Nexplanon. She is afebrile and nontoxic-appearing. No erythema or warmth of the area. On x-ray the Nexplanon does appear intact. Instructed to have further follow-up with gynecology if it continues to be bothersome. She was given warnings to return to the ER Imaging Data My impression: Left humerus x-ray: Nexplanon is intact Critical Care Time Critical Care Time Critical Care Time: No Discharge Plan Discharge Clinical Impression: Nexplanon in place Patient Disposition: Home, Self-Care Condition: Stable Instructions: Etonogestrel (Implant) Additional Instructions: Return to the emergen
[2022-04-29] MEDS: ACETAMINOPHEN 500 MG TABLET 1000 MG PO (01:45)
[2022-04-29 01:49] VITALS: BP 115/61
== END 2022-04-29 02:35 | disposition home or self-care (01) ==
PROVIDERS: Emergency Provider Emergency Medicine; PCP Physician Assistant
DX: M79.622 Pain in left upper arm (principal); F32.9 Major depressive disorder, single episode, unspecified; E11.9 Type 2 diabetes mellitus without complications; Z79.4 Long term (current) use of insulin; Z96.89 Presence of other specified functional implants
CPT/HCPCS: 73060; 99283; A9270

== ENCOUNTER 2022-04-29 11:37 | Emergency (ER) | payer OTHER, SELFPAY ==
--- NOTE | 2022-04-29 11:44 | ED.GENADULT ---
HPI - General Adult General Chief complaint: Abdominal Pain Stated complaint: Abdominal Pain, Nausea Time Seen by Provider: 04/29/22 11:45 Source: patient and RN notes reviewed Mode of arrival: ambulatory Limitations: no limitations History of Present Illness HPI narrative: 21-year-old presents to the [facility] with complaints of severe abdominal pain, nausea, uncontrolled blood sugars. Patient states she is currently being treated with Bactrim for a Juan/UTI. Patient denies any chest pain or shortness of breath. Denies any fevers. Related Data Home Medications Medication Instructions Recorded Confirmed insulin glargine 100 unit/mL 30 unit subcut HS 12/10/20 04/29/22 subcutaneous cartridge sertraline 100 mg tablet (Zoloft) 100 mg PO DAILY 12/13/20 04/29/22 metformin 500 mg tablet,extended 500 mg PO BID 11/22/21 04/29/22 release 24 hr albuterol sulfate 90 mcg/actuation inhalation PRN 03/12/22 aerosol inhaler lorazepam 0.5 mg tablet 0.5 mg PO TID 04/29/22 04/29/22 Allergies Allergy/AdvReac Type Severity Reaction Status Date / Time No Known Allergies Allergy Verified 04/29/22 11:39 Review of Systems Review of Systems: All systems reviewed & are unremarkable except as noted in HPI and below Constitutional: Constitutional: Reports no additional constitutional complaints, Denies chills and Denies fever(s) Eyes: Eyes: Reports no additional eye complaints ENT: Reports system reviewed and no additional complaints, except as documented Cardiovascular: Cardiovascular: Reports no additional cardiovascular complaints Respiratory: Respiratory: Reports no additional respiratory complaints Gastrointestinal: Gastrointestinal: Reports as per HPI and Reports abdominal pain Musculoskeletal: Musculoskeletal: Reports no additional musculoskeletal complaints Integumentary/Breasts: Skin/Breast: Reports system reviewed and no additional complaints, except as docu Neurologic: Reports system reviewed and no additional complaints, except as documented Psychiatric: Psychiatric: Reports no additional psychiatric complaints Allergic/Immunologic: Allergic/Immunologic: Reports no additional allergic/immunologic complaints PMF Past Medical History Medical History Depression Heart disease High cholesterol Hx of migraines Ingrown toenail of both feet PCOS (polycystic ovarian syndrome) TMJ (dislocation of temporomandibular joint) Type 2 diabetes mellitus Surgical History Surgical History History of dental surgery History of toe surgery Bilateral for ingrown toenail Family History Family History Other Diabetes mellitus Heart disease Hypertension Social History Social History Smoking status: Never smoker Tobacco type: cigarettes Second hand tobacco smoke exposure: No Alcohol intake: never Substance use: never Substance use type: does not use Gender identity (if verbalized by the patient): Female Sexual Orientation (if Verbalized by the Patient): Straight or Heterosexual Comments At the time of my signature, I reviewed and agree with the nursing past medical, surgical, social, and family history. There is no relevant family history pertinent to the patient complaint. Exam Const: General: alert and ill appearing acutely (mild) Nutritional Appearance: well nourished and obese Orientation/consciousness: patient oriented x3 Limitations: no limitations HENMT: Head: normal to inspection Ears: external ears normal General nose exam: Normal external nose present Eyes: General: appearance normal, both eyes and all related structures Pupils: Equal, round and reactive pupils present Neck: Neck: normal visual inspection, no lymphadenopathy and no meningeal signs Chest: [place]
[2022-04-29 11:45] VITALS: BP 144/86; PULSE 103; RESP 16; TEMP 36.8; O2SAT 99
[2022-04-29 11:47] VITALS: BP 144/86; PULSE 103; RESP 16; TEMP 36.8; O2SAT 99
[2022-04-29 11:51] LABS: Glucose Point of Care 459 mg/dl (65-105)
== END 2022-04-29 11:54 | disposition short-term general hospital (02) ==
PROVIDERS: Emergency Provider Nurse Practitioner; PCP Physician Assistant
DX: E11.65 Type 2 diabetes mellitus with hyperglycemia (principal); Z79.4 Long term (current) use of insulin; Z79.84 Long term (current) use of oral hypoglycemic drugs; E78.00 Pure hypercholesterolemia, unspecified; E28.2 Polycystic ovarian syndrome; I51.9 Heart disease, unspecified
CPT/HCPCS: 82948; 99212; G0463

== ENCOUNTER 2022-04-29 12:15 | Emergency (ER) | payer OTHER, SELFPAY ==
--- NOTE | ~2022-04-29 | CT_ITS ---
EXAMINATION: CT abdomen pelvis w con DATE: 04/29/2022 16:16 INDICATION: Abdominal pain TECHNIQUE: Computed tomography (CT) of the abdomen and pelvis was performed with 100 mL Omnipaque-350 intravenous contrast. Automated exposure control and iterative reconstruction technique were employe d. The dose-length product was 1514.03 mGy-cm. COMPARISON: 03/12/2022. FINDINGS: Lower thorax: Unremarkable Liver: Enlarged and fatty infiltrated. Biliary/Gallbladder: Gallbladder is collapsed. No bile duct dilation. Pancreas: No mass or duct dilation. Spleen: Normal. Adrenals:No mass. Kidneys: No mass, stone, or hydronephrosis. GI tract: No small or large bowel dilation. Normal appendix. Mesentery/Peritoneum: No ascites, mass, or free air. Retroperitoneum: No mass. Pelvis: Pelvic organs are within normal limits. Soft Tissues: Soft tissues and body wall unremarkable. Bones: No acute osseous finding. IMPRESSION: Hepatomegaly and steatosis. No acute abdominopelvic process detected. Reviewed, dictated and finalized at location [facility].
[2022-04-29 13:05] VITALS: BP 148/79; PULSE 101; RESP 20; TEMP 36.2; O2SAT 99
[2022-04-29 13:31] LABS: Basophils Percent Auto 0.4 % (0.2-1.2); Eosinophils Absolute Auto 0.1 K/mm3 (0-0.3); Eosinophils Percent Auto 0.7 % (0-4.4); Hematocrit 40.7 % (37.0-47.0); Hemoglobin 13.9 g/dL (12.0-15.0); Immature Granulocyte Absolute 0.03 K/mm3 (0.00-0.031); Immature Granulocyte Percent A 0.4 % (0-0.5); Lymphocytes Absolute Auto 3.08 K/mm3 (0.9-3.2); Lymphocytes Percent Auto 40.6 % (18.3-44.2); Mean Corpuscular HGB Conc 34.2 g/dl (32-36); Mean Corpuscular Hemoglobin 29.6 pg (26-34); Mean Corpuscular Volume 86.8 fl (80-100); Mean Platelet Volume 10.7 fl (7.4-10.4); Monocytes Absolute Auto 0.4 K/mm3 (0.1-0.6); Monocytes Percent Auto 5.8 % (2.6-8.5); Neutrophils Percent Auto 52.1 % (45.5-73.1); Platelet Count Result 308 k/mm3 (150-375); Red Blood Count 4.69 M/mm3 (4.2-5.4); Red Cell Distribution Width 12.4 % (11.5-14.5); White Blood Count 7.6 K/mm3 (4.5-10.0)
[2022-04-29 13:45] LABS: Alanine Aminotransferase 21 U/L (6-35); Albumin Level 4.4 g/dL (3.5-5.1); Alkaline Phosphatase 110 U/L (38-126); Anion Gap 6 mmol/L (8-16); Aspartate Amino Transferase 21 U/L (14-36); Bilirubin,Total 0.4 mg/dL (0.2-1.3); Blood Urea Nitrogen 10 mg/dL (7-17); Calcium 9.2 mg/dL (8.4-10.2); Carbon Dioxide 25 mmol/L (22-30); Chloride 96 mmol/L (98-107); Estimated CRCL calculation 175 ml/min; Estimated Glomerular Filt Rate > 60; Glucose 489 mg/dL (65-110); Lipase 49 U/L (23-300); Potassium 4.3 mmol/L (3.4-5.0); Sodium 127 mmol/L (137-145)
[2022-04-29 14:03] LABS: Appearance Urine Clear (Clear); Bilirubin Urine Negative (Negative); Color Urine Yellow (Yellow); Glucose Urine UA 3+ mg/dL (Negative); Ketones Urine Negative (Negative); Leukocyte Esterase Ur Negative LEU/UL (Negative); Nitrate Urine Negative (Negative); Protein Urine Negative (Negative); Urobilinogen Urine 0.2 mg/dL (<2.0); pH Urine 5.5 (5.0-9.0)
[2022-04-29 14:09] LABS: Bacteria Urine Trace /hpf; Mucus Urine Rare /lpf; RBC Urine 0-2 /hpf (0-2); Squamous Epithelial Cell Urine Few /hpf (Few); WBC Urine 0-3 /hpf
[2022-04-29 14:19] LABS: Add Urine Microscopic? YES; Blood Urine Trace-Intact (Negative)
--- NOTE | 2022-04-29 15:39 | ED.ABDPAIN ---
HPI - Abdominal Pain General Chief Complaint: Abdominal Pain Stated Complaint: abd pain Time Seen by Provider: 04/29/22 15:37 Source: patient and family Mode of arrival: ambulatory Limitations: no limitations History of Present Illness HPI narrative: 21 years old dark skinned female presented to the ED with pain left upper abdomen and started last night, constant, associated with nausea, vomiting in her mouth. History of chronic diarrhea for years. She denies any fever, or chills. Or history of abdominal surgery. Patient did not take her insulin today because she was in a cotto to leave. Patient requested to be referred to [facility] for implant removal at the left arm Related Data Home Medications Medication Instructions Recorded Confirmed insulin glargine 100 unit/mL 30 unit subcut HS 12/10/20 04/29/22 subcutaneous cartridge sertraline 100 mg tablet (Zoloft) 100 mg PO DAILY 12/13/20 04/29/22 metformin 500 mg tablet,extended 500 mg PO BID 11/22/21 04/29/22 release 24 hr albuterol sulfate 90 mcg/actuation inhalation PRN 03/12/22 aerosol inhaler lorazepam 0.5 mg tablet 0.5 mg PO TID 04/29/22 04/29/22 Allergies Allergy/AdvReac Type Severity Reaction Status Date / Time No Known Allergies Allergy Verified 04/29/22 11:39 Review of Systems Review of Systems: All systems reviewed & are unremarkable except as noted in HPI and below PMFSH Past Medical History Medical History Depression Heart disease High cholesterol Hx of migraines Ingrown toenail of both feet PCOS (polycystic ovarian syndrome) TMJ (dislocation of temporomandibular joint) Type 2 diabetes mellitus Surgical History Surgical History History of dental surgery History of toe surgery Bilateral for ingrown toenail Family History Family History Other Diabetes mellitus Heart disease Hypertension Social History Social History Smoking status: Never smoker Tobacco type: cigarettes Second hand tobacco smoke exposure: No Alcohol intake: never Substance use: never Substance use type: does not use Gender identity (if verbalized by the patient): Female Sexual Orientation (if Verbalized by the Patient): Straight or Heterosexual Exam Narrative: General appearance: Well-developed, well-nourished Skin: Normal color Head: Normocephalic, nontraumatic Eyes: Clear conjunctiva ENT: Oropharynx normal, ears normal, nose normal Neck: Supple, nontender Chest and respiratory: Airway patent, no respiratory distress, no accessory muscle use Heart: Regular rate/rhythm Abdomen: Soft, tenderness with deep palpation left lower quadrant, no organomegaly, quiet bowel sounds Vascular: Normal peripheral pulses, normal capillary refill. Musculoskeletal: Normal range of motion, nontender back Neurologic: Alert and oriented ?3, [employer] is normal as tested, no gross motor deficit Course Vital Signs Vital signs: Vital Signs Temperature 36.2 C L 04/29/22 13:05 Pulse Rate 101 H 04/29/22 13:05 Respiratory Rate 20 04/29/22 13:05 Blood Pressure 148/79 H 04/29/22 13:05 Pulse Oximetry 99 04/29/22 13:05 Oxygen Delivery Room Air 04/29/22 13:05 Temperature 36.2 C L 04/29/22 13:05 Pulse Rate 101 H 04/29/22 13:05 Respiratory Rate 20 04/29/22 13:05 Blood Pressure 148/79 H 04/29/22 13:05 Pulse Oximetry 99 04/29/22 13:05 Oxygen Delivery Room Air 04/29/22 13:05 MDM - Abdominal Pain Differential Diagnosis Differential diagnosis: Likely
[2022-04-29 15:52] LABS: Pregnancy On Board Control Positive; Urine Pregnancy Test Negative
[2022-04-29] MEDS: SODIUM CHLORIDE 0.9% IV 1,000 ML 999 ML IV CONT ×2 (16:07→16:45)
[2022-04-29 17:10] LABS: Fractional Inspired Oxygen 21 %; HCO3 VBG 23.3 mEq/l (24.0-30.0); PCO2 VBG 31.7 mmHg (42.0-48.0); PO2 VBG 137.6 mmHg (35.0-45.0)
[2022-04-29 17:12] LABS: Device ROOM AIR
[2022-04-29 17:13] LABS: pH VBG 7.484 (7.300-7.400)
[2022-04-29] MEDS: INSULIN HUMAN REGULAR (*BKC) 100 UNITS/ML 11 UNITS IV PUSH (17:31)
[2022-04-29 18:18] LABS: Glucose Point of Care 215 mg/dl (65-105)
== END 2022-04-29 18:29 | disposition home or self-care (01) ==
PROVIDERS: Emergency Provider Emergency Medicine; PCP Physician Assistant
DX: E10.65 Type 1 diabetes mellitus with hyperglycemia (principal); Z79.84 Long term (current) use of oral hypoglycemic drugs; F32.9 Major depressive disorder, single episode, unspecified
CPT/HCPCS: 36415; 74177; 80053; 81001; 81025; 82803; 82948; 83690; 85025; 96361; 96374; 99284; J1815; J7030; Q9967

== ENCOUNTER 2022-05-12 10:28 | Emergency (ER) | payer OTHER, SELFPAY ==
[2022-05-12 10:29] VITALS: BP 148/82; PULSE 100; RESP 14; TEMP 36.7; O2SAT 99
[2022-05-12 10:39] LABS: Basophils Percent Auto 0.2 % (0.2-1.2); Eosinophils Absolute Auto 0.1 K/mm3 (0-0.3); Eosinophils Percent Auto 0.6 % (0-4.4); Hematocrit 41.6 % (37.0-47.0); Hemoglobin 14.1 g/dL (12.0-15.0); Immature Granulocyte Absolute 0.03 K/mm3 (0.00-0.031); Immature Granulocyte Percent A 0.4 % (0-0.5); Lymphocytes Absolute Auto 2.24 K/mm3 (0.9-3.2); Lymphocytes Percent Auto 27.1 % (18.3-44.2); Mean Corpuscular HGB Conc 33.9 g/dl (32-36); Mean Corpuscular Hemoglobin 30.2 pg (26-34); Mean Corpuscular Volume 89.1 fl (80-100); Mean Platelet Volume 9.6 fl (7.4-10.4); Monocytes Absolute Auto 0.7 K/mm3 (0.1-0.6); Monocytes Percent Auto 8.2 % (2.6-8.5); Neutrophils Absolute Auto 5.3 K/mm3 (1.3-6.7); Neutrophils Percent Auto 63.5 % (45.5-73.1); Platelet Count Result 271 k/mm3 (150-375); Red Blood Count 4.67 M/mm3 (4.2-5.4); Red Cell Distribution Width 12.6 % (11.5-14.5); White Blood Count 8.3 K/mm3 (4.5-10.0)
[2022-05-12 10:55] LABS: Alanine Aminotransferase 17 U/L (6-35); Albumin Level 4.3 g/dL (3.5-5.1); Alkaline Phosphatase 97 U/L (38-126); Anion Gap 11 mmol/L (8-16); Aspartate Amino Transferase 15 U/L (14-36); Bilirubin,Total 0.5 mg/dL (0.2-1.3); Blood Urea Nitrogen 11 mg/dL (7-17); Calcium 9.5 mg/dL (8.4-10.2); Carbon Dioxide 25 mmol/L (22-30); Chloride 98 mmol/L (98-107); Estimated Glomerular Filt Rate > 60; Glucose 263 mg/dL (65-110); Lipase 24 U/L (23-300); Potassium 3.9 mmol/L (3.4-5.0); Sodium 134 mmol/L (137-145)
--- NOTE | 2022-05-12 11:25 | ED.ABDPAIN ---
HPI - Abdominal Pain General Chief Complaint: Abdominal Pain Stated Complaint: abd pain Time Seen by Provider: 05/12/22 10:43 History of Present Illness HPI narrative: 21-year-old female with a history of poorly controlled type 2 diabetes presents to the emergency room for periumbilical abdominal pain. Patient states that discomfort has been present since yesterday and is associated with nausea. States her blood sugars have been ranging anywhere from 3-400. Denies fever. Denies vomiting, constipation or diarrhea. Related Data Home Medications Medication Instructions Recorded Confirmed insulin glargine 100 unit/mL 30 unit subcut HS 12/10/20 04/29/22 subcutaneous cartridge sertraline 100 mg tablet (Zoloft) 100 mg PO DAILY 12/13/20 04/29/22 metformin 500 mg tablet,extended 500 mg PO BID 11/22/21 04/29/22 release 24 hr albuterol sulfate 90 mcg/actuation inhalation PRN 03/12/22 aerosol inhaler lorazepam 0.5 mg tablet 0.5 mg PO TID 04/29/22 04/29/22 Allergies Allergy/AdvReac Type Severity Reaction Status Date / Time No Known Allergies Allergy Verified 05/12/22 10:31 Review of Systems Review of Systems: CONSTITUTIONAL: Denies fever, chills, or sweats. EYES: Denies visual changes, redness, or discharge. ENT: Denies rhinorrhea, congestion, sore throat, or otalgia. CARDIOVASCULAR: Denies chest pain, palpitations, or edema. RESPIRATORY: Denies cough or dyspnea. GASTROINTESTINAL: Reports abdominal pain and nausea GENITOURINARY: Denies dysuria or hematuria. SKIN: Denies rash or itching. MUSCULOSKELETAL: Denies back pain, joint pain, or myalgia. NEUROLOGIC: Denies headache, numbness, dizziness, or weakness. PSYCHIATRIC: Denies anxiety or depression. [facility] Past Medical History Medical History Depression Heart disease High cholesterol Hx of migraines Ingrown toenail of both feet PCOS (polycystic ovarian syndrome) TMJ (dislocation of temporomandibular joint) Type 2 diabetes mellitus Surgical History Surgical History History of dental surgery History of toe surgery Bilateral for ingrown toenail Family History Family History Other Diabetes mellitus Heart disease Hypertension Social History Social History Smoking status: Never smoker Tobacco type: cigarettes Second hand tobacco smoke exposure: No Alcohol intake: never Substance use: never Substance use type: does not use Gender identity (if verbalized by the patient): Female Sexual Orientation (if Verbalized by the Patient): Straight or Heterosexual Exam Narrative: GENERAL: Well-appearing, well-nourished, no physical limitations, and in no acute distress. HEAD: Normocephalic, atraumatic. EYES: Conjunctivae normal, PERRLA and EOMI. CHEST: Clear to auscultation. No respiratory distress. No wheezes rales or rhonchi. No tenderness. HEART: Regular rate and rhythm. No murmur heard. Normal peripheral pulses. ABDOMEN: Soft, upper abdominal tenderness, nondistended, normal active bowel sounds. BACK: No CVA tenderness EXTREMITIES: Normal range of motion. No edema. No clubbing or cyanosis SKIN: Warm, dry, no rash. No noted wounds NEURO: No focal deficits. Alert and oriented x3. MAEW. CN's II-XI intact bilaterally, normal gait PSYCH: Cooperative. Normal mood and affect. Course Vital Signs Vital signs: Vital Signs Temperature 36.7 C 05/12/22 10:29 Pulse Rate 100 05/12/22 10:29 Respiratory Rate 14 05/12/22 10:29 Blood Pressure 148/82 H 05/12/22 10:29 Pulse Oximetry 99 05/12/22 10:29 Oxygen Delivery Room Air 05/12/22 10:29 Temperature 36.7 C 05/12/22 10:29 Pulse Rate 97 05/12/22 12:24 Respiratory Rate 15 05/12/22 12:24 Blood Pressure 137/88 05/12/22 12:24 Pulse Oximetry 99 05/01
[2022-05-12 11:33] LABS: Appearance Urine Clear (Clear); Bilirubin Urine Negative (Negative); Blood Urine Negative (Negative); Color Urine Yellow (Yellow); Glucose Urine UA 3+ mg/dL (Negative); Ketones Urine Negative (Negative); Leukocyte Esterase Ur Negative LEU/UL (Negative); Nitrate Urine Negative (Negative); Protein Urine Negative (Negative); Urobilinogen Urine 0.2 mg/dL (<2.0); pH Urine 5.5 (5.0-9.0)
[2022-05-12 11:47] LABS: Bacteria Urine Trace /hpf; Budding Yeast Urine Present /hpf; Mucus Urine Rare /lpf; RBC Urine 0-2 /hpf (0-2); Squamous Epithelial Cell Urine Few /hpf (Few); WBC Urine 0-3 /hpf
[2022-05-12 11:54] LABS: Add Urine Microscopic? YES
[2022-05-12] MEDS: DICYCLOMINE HCL INJ 20 MG/2 ML VIAL IM (11:56)
[2022-05-12] MEDS: ONDANSETRON INJ 4 MG/2 ML VIAL IV PUSH (11:56)
[2022-05-12] MEDS: SODIUM CHLORIDE 0.9% IV 1,000 ML 999 ML IV CONT ×2 (11:56→12:23)
[2022-05-12 12:17] LABS: Hemoglobin A1C 11.3 % (<5.7)
[2022-05-12 12:24] VITALS: BP 137/88; PULSE 97; RESP 15; O2SAT 99
[2022-05-12 14:01] VITALS: BP 134/87; PULSE 88; RESP 15; O2SAT 99
== END 2022-05-12 14:03 | disposition home or self-care (01) ==
PROVIDERS: Emergency Medicine; Emergency Provider Nurse Practitioner Family; PCP Physician Assistant
DX: E11.65 Type 2 diabetes mellitus with hyperglycemia (principal); E78.00 Pure hypercholesterolemia, unspecified; I51.9 Heart disease, unspecified; E28.2 Polycystic ovarian syndrome; F32.A Depression, unspecified; Z79.84 Long term (current) use of oral hypoglycemic drugs; Z79.4 Long term (current) use of insulin; Z79.51 Long term (current) use of inhaled steroids
CPT/HCPCS: 36415; 80053; 81001; 81025; 83036; 83690; 85025; 96361; 96372; 96374; 99284; J0500; J2405; J7030

== ENCOUNTER 2022-05-14 09:09 | Emergency (ER) | payer OTHER, SELFPAY ==
--- NOTE | ~2022-05-14 | CT_ITS ---
EXAMINATION: CT abdomen pelvis w con DATE: 05/14/2022 11:31 INDICATION: Mid to low abdominal pain. Constipation. Nausea and vomiting. TECHNIQUE: Computed tomography (CT) of the abdomen and pelvis was performed with 100 mL Omnipaque 350 intravenous contrast. Automated exposure control and iterative reconstruction technique were employe d. The dose-length product was 1502.12 mGy-cm. COMPARISON: CT abdomen and pelvis 04/29/2022 FINDINGS: The visualized portions of the lung bases are clear without pneumonia or pleural effusion. The heart size is normal. No pericardial effusion. The liver, gallbladder, spleen, pancreas, adrenal glands, and kidneys are normal. There is a 2.8 cm dominant follicle in right ovary. There are no dila estrada loops of bowel. The appendix is normal. There are no pathologically enlarged lymph nodes. There i s no free intraperitoneal fluid. There is mild thoracolumbar spondylosis. IMPRESSION: 1. No specific etiology for the patient's symptoms. Reviewed, dictated and finalized at location A.
[2022-05-14 09:20] VITALS: BP 120/82; PULSE 88; RESP 14; TEMP 36.7; O2SAT 100
--- NOTE | 2022-05-14 09:56 | PC.NURSE ---
pt. called for triage, not in [facility]
--- NOTE | 2022-05-14 10:45 | ED.ABDPAIN ---
HPI - Abdominal Pain General Chief Complaint: Abdominal Pain Stated Complaint: abd pain Time Seen by Provider: 05/14/22 10:37 History of Present Illness HPI narrative: 21-year-old female with a significant history of abdominal pain with no identifiable cause, gastroenteritis and poorly controlled diabetes presents to the emergency room with upper abdominal pain. Patient states she has not had a bowel movement in 2 days. States that she has not tried any [id number] medications to relieve her symptoms. Reports belly pain has been going on for 4 days and has not improved. Patient denies flatulence. Upon record review, patient was seen here 2 days ago for abdominal pain and was diagnosed with constipation. Patient has been seen multiple times in the emergency room for abdominal pain, gastroenteritis. Patient states that there is been no follow-up with GI. Related Data Home Medications Medication Instructions Recorded Confirmed insulin glargine 100 unit/mL 30 unit subcut HS 12/10/20 04/29/22 subcutaneous cartridge sertraline 100 mg tablet (Zoloft) 100 mg PO DAILY 12/13/20 04/29/22 metformin 500 mg tablet,extended 500 mg PO BID 11/22/21 04/29/22 release 24 hr albuterol sulfate 90 mcg/actuation inhalation PRN 03/12/22 aerosol inhaler lorazepam 0.5 mg tablet 0.5 mg PO TID 04/29/22 04/29/22 Allergies Allergy/AdvReac Type Severity Reaction Status Date / Time No Known Allergies Allergy Verified 05/14/22 09:19 Review of Systems Review of Systems: CONSTITUTIONAL: Denies fever, chills, or sweats. EYES: Denies visual changes, redness, or discharge. ENT: Denies rhinorrhea, congestion, sore throat, or otalgia. CARDIOVASCULAR: Denies chest pain, palpitations, or edema. RESPIRATORY: Denies cough or dyspnea. GASTROINTESTINAL: Reports abdominal pain, nausea, constipation GENITOURINARY: Denies dysuria or hematuria. SKIN: Denies rash or itching. MUSCULOSKELETAL: Denies back pain, joint pain, or myalgia. NEUROLOGIC: Denies headache, numbness, dizziness, or weakness. PSYCHIATRIC: Denies anxiety or depression. [facility] Past Medical History Medical History Depression Heart disease High cholesterol Hx of migraines Ingrown toenail of both feet PCOS (polycystic ovarian syndrome) TMJ (dislocation of temporomandibular joint) Type 2 diabetes mellitus Surgical History Surgical History History of dental surgery History of toe surgery Bilateral for ingrown toenail Family History Family History Other Diabetes mellitus Heart disease Hypertension Social History Social History Smoking status: Never smoker Tobacco type: cigarettes Second hand tobacco smoke exposure: No Alcohol intake: never Substance use: never Substance use type: does not use Gender identity (if verbalized by the patient): Female Sexual Orientation (if Verbalized by the Patient): Straight or Heterosexual Exam Narrative: GENERAL: Well-appearing, well-nourished, no physical limitations, and in no acute distress. HEAD: Normocephalic, atraumatic. EYES: Conjunctivae normal, PERRLA and EOMI. CHEST: Clear to auscultation. No respiratory distress. No wheezes rales or rhonchi. No tenderness. HEART: Regular rate and rhythm. No murmur heard. Normal peripheral pulses. ABDOMEN: Soft, nontender, nondistended, hypoactive bowel sounds BACK: No CVA tenderness EXTREMITIES: Normal range of motion. No edema. No clubbing or cyanosis SKIN: Warm, dry, no rash. No noted wounds NEURO: No focal deficits. Alert and oriented x3. MAEW. CN's II-XI intact bilaterally, normal gait PSYCH: Cooperative. Normal mood and affect. Course Vital Signs Vital signs: Vital Signs Temperature 36.7 C 05/14/22 09:20 Pulse Rate 88 05/14/22 09:2
[2022-05-14 11:10] VITALS: BP 128/74; PULSE 80; RESP 16; O2SAT 100
[2022-05-14] MEDS: SODIUM CHLORIDE 0.9% IV 1,000 ML 999 ML IV CONT (11:16)
[2022-05-14 11:17] LABS: Basophils Percent Auto 0.4 % (0.2-1.2); Eosinophils Percent Auto 0.5 % (0-4.4); Hematocrit 40.9 % (37.0-47.0); Hemoglobin 13.9 g/dL (12.0-15.0); Immature Granulocyte Absolute 0.03 K/mm3 (0.00-0.031); Immature Granulocyte Percent A 0.4 % (0-0.5); Lymphocytes Absolute Auto 2.81 K/mm3 (0.9-3.2); Lymphocytes Percent Auto 37.5 % (18.3-44.2); Mean Corpuscular Hemoglobin 30.3 pg (26-34); Mean Corpuscular Volume 89.3 fl (80-100); Mean Platelet Volume 9.8 fl (7.4-10.4); Monocytes Absolute Auto 0.7 K/mm3 (0.1-0.6); Monocytes Percent Auto 8.7 % (2.6-8.5); Neutrophils Absolute Auto 3.9 K/mm3 (1.3-6.7); Neutrophils Percent Auto 52.5 % (45.5-73.1); Platelet Count Result 267 k/mm3 (150-375); Red Blood Count 4.58 M/mm3 (4.2-5.4); Red Cell Distribution Width 12.8 % (11.5-14.5); White Blood Count 7.5 K/mm3 (4.5-10.0)
[2022-05-14 11:21] LABS: Appearance Urine Clear (Clear); Bilirubin Urine Negative (Negative); Blood Urine Negative (Negative); Color Urine Yellow (Yellow); Glucose Urine UA Negative (Negative); Ketones Urine Negative (Negative); Leukocyte Esterase Ur Negative LEU/UL (Negative); Nitrate Urine Negative (Negative); Protein Urine Negative (Negative); Specific Grav Ur >= 1.030 (1.001-1.035); Urobilinogen Urine 0.2 mg/dL (<2.0); pH Urine 5.5 (5.0-9.0)
[2022-05-14 11:26] LABS: Add Urine Microscopic? NO
[2022-05-14 11:30] LABS: Alanine Aminotransferase 16 U/L (6-35); Albumin Level 3.9 g/dL (3.5-5.1); Alkaline Phosphatase 99 U/L (38-126); Anion Gap 10 mmol/L (8-16); Aspartate Amino Transferase 17 U/L (14-36); Bilirubin,Total 0.2 mg/dL (0.2-1.3); Blood Urea Nitrogen 7 mg/dL (7-17); Calcium 9.1 mg/dL (8.4-10.2); Carbon Dioxide 23 mmol/L (22-30); Chloride 102 mmol/L (98-107); Estimated CRCL calculation 175 ml/min; Estimated Glomerular Filt Rate > 60; Glucose 185 mg/dL (65-110); Lipase 17 U/L (23-300); Potassium 3.8 mmol/L (3.4-5.0); Sodium 135 mmol/L (137-145)
[2022-05-14 12:33] VITALS: BP 140/88; PULSE 78; RESP 16; O2SAT 100
[2022-05-14 13:27] VITALS: BP 121/76; PULSE 87; RESP 16; O2SAT 99
== END 2022-05-14 13:28 | disposition home or self-care (01) ==
PROVIDERS: Emergency Provider Nurse Practitioner Family; PCP Physician Assistant
DX: R10.10 Upper abdominal pain, unspecified (principal); E78.00 Pure hypercholesterolemia, unspecified; I51.9 Heart disease, unspecified; E28.2 Polycystic ovarian syndrome; E11.9 Type 2 diabetes mellitus without complications; F32.A Depression, unspecified; Z79.4 Long term (current) use of insulin; Z79.84 Long term (current) use of oral hypoglycemic drugs
CPT/HCPCS: 36415; 74177; 80053; 81003; 81025; 83690; 85025; 96360; 96361; 99284; J7030; Q9967

== ENCOUNTER 2022-07-20 11:39 | Emergency (ER) | payer OTHER, SELFPAY ==
--- NOTE | ~2022-07-20 | XR_ITS ---
EXAMINATION: XR chest 2V DATE: 07/20/2022 12:12 INDICATION: One week of productive cough TECHNIQUE: PA and lateral views of the chest were obtained. COMPARISON: Chest radiograph dated 02/17/2022 FINDINGS: The lungs remain clear with no focal airspace opacities, pulmonary edema, pleural effusion or pneumot horax. The cardiomediastinal silhouette is normal. Visualized bones and soft tissues are unremarkable . IMPRESSION: 1. No acute cardiopulmonary disease. Reviewed, dictated and finalized at location A. [facility]
[2022-07-20 11:46] VITALS: BP 129/73; PULSE 106; RESP 18; TEMP 37.1; O2SAT 98
[2022-07-20 13:02] LABS: Influenza A QL RT-PCR Negative (Negative); Influenza B QL RT-PCR Negative (Negative); SARS-CoV-2 RNA PCR Negative
--- NOTE | 2022-07-20 14:01 | ED.GENADULT ---
HPI - General Adult General Chief complaint: Upper Respiratory Infection Stated complaint: cough Time Seen by Provider: 07/20/22 11:52 History of Present Illness HPI narrative: 21-year-old female presented to the emergency department for evaluation of cough and congestion for approximately the last week. Patient states that for approximately 7 days she has had cough congestion and a lot of mucus production and sneezing. Patient states she has also had subjective fever. Patient has been taking [id number] medications to help with this but is still not improving. Related Data Home Medications Medication Instructions Recorded Confirmed insulin glargine 100 unit/mL 30 unit subcut HS 12/10/20 04/29/22 subcutaneous cartridge sertraline 100 mg tablet (Zoloft) 100 mg PO DAILY 12/13/20 04/29/22 metformin 500 mg tablet,extended 500 mg PO BID 11/22/21 04/29/22 release 24 hr albuterol sulfate 90 mcg/actuation inhalation PRN 03/12/22 aerosol inhaler lorazepam 0.5 mg tablet 0.5 mg PO TID 04/29/22 04/29/22 Allergies Allergy/AdvReac Type Severity Reaction Status Date / Time No Known Allergies Allergy Verified 05/14/22 09:19 Review of Systems Review of Systems: CONSTITUTIONAL: Denies fever, chills, or sweats. EYES: Denies visual changes, redness, or discharge. ENT: Denies rhinorrhea, congestion, sore throat, or otalgia. CARDIOVASCULAR: Denies chest pain, palpitations, or edema. RESPIRATORY: See HPI GASTROINTESTINAL: Denies abdominal pain, nausea, vomiting, or diarrhea. GENITOURINARY: Denies dysuria or hematuria. SKIN: Denies rash or itching. MUSCULOSKELETAL: Denies back pain, joint pain, or myalgia. NEUROLOGIC: Denies headache, numbness, or weakness. [facility] Past Medical History Medical History Depression Heart disease High cholesterol Hx of migraines Ingrown toenail of both feet PCOS (polycystic ovarian syndrome) TMJ (dislocation of temporomandibular joint) Type 2 diabetes mellitus Surgical History Surgical History History of dental surgery History of toe surgery Bilateral for ingrown toenail Family History Family History Other Diabetes mellitus Heart disease Hypertension Social History Social History Smoking status: Never smoker Tobacco type: cigarettes Second hand tobacco smoke exposure: No Alcohol intake: never Substance use: never Substance use type: does not use Gender identity (if verbalized by the patient): Female Sexual Orientation (if Verbalized by the Patient): Straight or Heterosexual Exam Narrative: APPEARANCE: Well appearing, no pain, no distress, well-nourished. HEAD: normocephalic, atraumatic. EYES: PERRLA/EOMI, conjunctivae clear. NOSE: Normal no drainage EARS:TMS clear with good light reflex. THROAT: Pharynx clear, no exudate. NECK: Supple. No adenopathy, no masses. RESPIRATORY: Airway patent, respirations nonlabored. Clear to auscultation bilaterally, no rales, rhonchi, wheezing. CARDIOVASCULAR: Regular rate and rhythm without murmurs rubs or gallops. ABDOMINAL: Soft, nontender, nondistended, normal bowel sounds MUSCULOSKELETAL: Moves all extremities. Strength/ROM intact, No edema, No calf tenderness. NEURO: Alert. Cranial nerves II through XII intact. Grossly intact SKIN: Warm, dry. Normal Color Course Course Emergency Course: Patient's chest x-ray was negative. Patient was negative for influenza and for COVID. Due to the duration of the patient's symptoms she will be started on antibiotics. Patient and partner were updated on the diagnosis and treatment plan. All question concerns were addressed. Vital Signs Vital signs: Vital Signs Temperature 98.8 F 07/20/22 11:46 Pulse Rate 106 H 07/20/22 11:46 Respiratory Rate 18
[2022-07-20] MEDS: AZITHROMYCIN 250 MG TABLET 500 MG PO (14:19)
== END 2022-07-20 14:45 | disposition home or self-care (01) ==
PROVIDERS: Physician Assistant; Emergency Provider Emergency Medicine; PCP Physician Assistant
DX: J18.9 Pneumonia, unspecified organism (principal); Z20.822 Contact with and (suspected) exposure to COVID-19; I51.9 Heart disease, unspecified; E11.9 Type 2 diabetes mellitus without complications; E78.00 Pure hypercholesterolemia, unspecified; E28.2 Polycystic ovarian syndrome; F32.A Depression, unspecified; Z79.84 Long term (current) use of oral hypoglycemic drugs; Z79.4 Long term (current) use of insulin
CPT/HCPCS: 71046; 87636; 99283; A9270

== ENCOUNTER 2022-11-10 15:25 | Observation (INO) | payer OTHER, SELFPAY ==
[2022-11-10 15:35] VITALS: BP 128/91; PULSE 118; RESP 18; TEMP 36.3; O2SAT 100
[2022-11-10] MEDS: LORazepam (*CRX) 1 MG TABLET PO (16:08)
[2022-11-10 16:38] LABS: Basophils Percent Auto 0.6 % (0.2-1.2); Eosinophils Percent Auto 0.3 % (0-4.4); Hematocrit 44.2 % (37.0-47.0); Hemoglobin 15.3 g/dL (12.0-15.0); Immature Granulocyte Absolute 0.02 K/mm3 (0.00-0.031); Immature Granulocyte Percent A 0.3 % (0-0.5); Lymphocytes Absolute Auto 2.91 K/mm3 (0.9-3.2); Lymphocytes Percent Auto 40.4 % (18.3-44.2); Mean Corpuscular HGB Conc 34.6 g/dl (32-36); Mean Corpuscular Hemoglobin 30.2 pg (26-34); Mean Corpuscular Volume 87.4 fl (80-100); Mean Platelet Volume 10.5 fl (7.4-10.4); Monocytes Absolute Auto 0.5 K/mm3 (0.1-0.6); Monocytes Percent Auto 6.2 % (2.6-8.5); Neutrophils Absolute Auto 3.8 K/mm3 (1.3-6.7); Neutrophils Percent Auto 52.2 % (45.5-73.1); Platelet Count Result 292 k/mm3 (150-375); Red Blood Count 5.06 M/mm3 (4.2-5.4); Red Cell Distribution Width 12.1 % (11.5-14.5); White Blood Count 7.2 K/mm3 (4.5-10.0)
[2022-11-10 16:48] LABS: Ethanol < 10 mg/dL (<10)
[2022-11-10 16:52] LABS: Appearance Urine Clear (Clear); Bilirubin Urine Negative (Negative); Blood Urine Negative (Negative); Color Urine Yellow (Yellow); Glucose Urine UA 3+ mg/dL (Negative); Ketones Urine 1+ mg/dL (Negative); Leukocyte Esterase Ur Negative LEU/UL (Negative); Nitrate Urine Negative (Negative); Protein Urine Negative (Negative); Urobilinogen Urine 0.2 mg/dL (<2.0); pH Urine 6.5 (5.0-9.0)
[2022-11-10 16:54] LABS: Specific Grav Ur 1.038 (1.001-1.035)
[2022-11-10 16:55] LABS: Add Urine Microscopic? NO; Alanine Aminotransferase 22 U/L (6-35); Albumin Level 4.7 g/dL (3.5-5.1); Alkaline Phosphatase 115 U/L (38-126); Anion Gap 11 mmol/L (8-16); Aspartate Amino Transferase 21 U/L (14-36); Bilirubin,Total 0.7 mg/dL (0.2-1.3); Blood Urea Nitrogen 11 mg/dL (7-17); Calcium 9.5 mg/dL (8.4-10.2); Carbon Dioxide 25 mmol/L (22-30); Chloride 93 mmol/L (98-107); Estimated CRCL calculation 206 ml/min; Estimated Glomerular Filt Rate > 60; Glucose 531 mg/dL (65-110); Sodium 129 mmol/L (137-145)
--- NOTE | 2022-11-10 17:16 | ED.PSYCH ---
HPI - Psych General Chief Complaint: Psychiatric Symptoms Stated Complaint: SI Time Seen by Provider: 11/10/22 15:44 History of Present Illness HPI Narrative: 22-year-old female with a history of depression, schizophrenia presenting with suicidal ideation. Patient states that she saw a new psychiatrist earlier today who diagnosed her with schizophrenia. States that she used to be on Abilify but unfortunately she has not been taking this over the last several months due to insurance problems. States that today he stated that he wanted to start her on a new medication. After leaving the psychiatrist, the patient states that she became overwhelmed and had increasingly persistent thoughts of suicide. States that she had a plan earlier which she does not remember. She denies a current plan. She denies homicidal ideation. States that she has chronic visual and auditory hallucinations. States they are severe today as she feels very stressed. States that the voices mock her and argue with her. She denies any physical pain or complaints. Related Data Home Medications Medication Instructions Recorded Confirmed insulin glargine 100 unit/mL 30 unit subcut HS 12/10/20 04/29/22 subcutaneous cartridge sertraline 100 mg tablet (Zoloft) 100 mg PO DAILY 12/13/20 04/29/22 metformin 500 mg tablet,extended 500 mg PO BID 11/22/21 04/29/22 release 24 hr albuterol sulfate 90 mcg/actuation inhalation PRN 03/12/22 aerosol inhaler lorazepam 0.5 mg tablet 0.5 mg PO TID 04/29/22 04/29/22 Allergies Allergy/AdvReac Type Severity Reaction Status Date / Time No Known Allergies Allergy Verified 05/14/22 09:19 Review of Systems Review of Systems: All systems reviewed & are unremarkable except as noted in HPI and below PMFSH Past Medical History Medical History Depression Heart disease High cholesterol Hx of migraines Ingrown toenail of both feet PCOS (polycystic ovarian syndrome) TMJ (dislocation of temporomandibular joint) Type 2 diabetes mellitus Surgical History Surgical History History of dental surgery History of toe surgery Bilateral for ingrown toenail Family History Family History Other Diabetes mellitus Heart disease Hypertension Social History Social History Smoking status: Never smoker Tobacco type: cigarettes Second hand tobacco smoke exposure: No Alcohol intake: never Substance use: never Substance use type: does not use and prescription drug Living arrangements: with family Occupation/Education: unemployed Gender identity (if verbalized by the patient): Female Sexual Orientation (if Verbalized by the Patient): Straight or Heterosexual Exam Narrative: GENERAL: Lying in bed, intermittently tearful HEAD: Normocephalic, atraumatic. EYES: PERRLA and EOMI. ENT: Nares clear, no rhinorrhea or epistaxis. Mucous membranes moist. NECK: Supple. CHEST: Clear to auscultation. No respiratory distress. HEART: Regular rate and rhythm ABDOMEN: Soft, nontender, nondistended, normal active bowel sounds. EXTREMITIES: Normal range of motion. No edema. SKIN: Warm, dry, no rash. NEURO: No focal deficits. Alert and oriented x3. PSYCH: Tearful, depressed affect, reports suicidal ideation, no homicidal ideation, endorses auditory and visual hallucinations. Course Vital Signs Vital signs: Vital Signs Temperature 97.4 F L 11/10/22 15:35 Pulse Rate 118 H 11/10/22 15:35 Respiratory Rate 18 11/10/22 15:35 Blood Pressure 128/91 H 11/10/22 15:35 Pulse Oximetry 100 11/10/22 15:35 Oxygen Delivery Room Air 11/10/22 15:35 Temperature 97.6 F 11/10/22 19:00 Pulse Rate 104 H 11/10/22 19:00 Respiratory Rate 14 11/10/22 19:00 Blood Pressure 100/60
[2022-11-10 17:32] LABS: Amphetamine Screen Urine Negative (Negative); Barbiturate Screen Urine Negative (Negative); Benzodiazepines Screen Urine Negative (Negative); Cannabinoid Screen Urine Negative (Negative); Cocaine Screen Urine Negative (Negative); Methadone Screen Urine Negative (Negative); Opiate Screen Urine Negative (Negative); Phencyclidine Screen Urine Negative (Negative)
[2022-11-10] MEDS: ACETAMINOPHEN 500 MG TABLET 1000 MG PO (17:55)
[2022-11-10] MEDS: metFORMIN HCL XR 500 MG TAB.SR.24H PO (17:55)
[2022-11-10] MEDS: INSULIN HUMAN REGULAR (*BKC) 100 UNITS/ML 10 UNITS SUB-Q (18:56)
[2022-11-10 19:00] VITALS: BP 100/60; PULSE 104; RESP 14; TEMP 36.4; O2SAT 98
[2022-11-10] MEDS: LACTATED RINGERS 1,000 ML 999 ML IV CONT ×2 (19:32→19:33)
[2022-11-10 22:05] LABS: Anion Gap 10 mmol/L (8-16); Blood Urea Nitrogen 10 mg/dL (7-17); Calcium 9.1 mg/dL (8.4-10.2); Carbon Dioxide 25 mmol/L (22-30); Chloride 99 mmol/L (98-107); Estimated CRCL calculation 206 ml/min; Estimated Glomerular Filt Rate > 60; Glucose 400 mg/dL (65-110); Potassium 3.9 mmol/L (3.4-5.0); Sodium 134 mmol/L (137-145)
[2022-11-11] MEDS: INSULIN ASPART (*BKC) 100 UNITS/ML SUB-Q (00:48)
[2022-11-11] MEDS: INSULIN GLARGINE (*BKC) 100 UNITS/ML 15 UNITS SUB-Q (00:49)
[2022-11-11 00:53] LABS: Glucose Point of Care 380 mg/dl (65-105)
[2022-11-11 02:07] LABS: Glucose Point of Care 420 mg/dl (65-105)
[2022-11-11 03:44] LABS: Influenza A QL RT-PCR Negative (Negative); Influenza B QL RT-PCR Negative (Negative); SARS-CoV-2 RNA PCR Negative
[2022-11-11 06:45] VITALS: BP 124/69; PULSE 93; RESP 14; O2SAT 99
[2022-11-11 07:06] LABS: Glucose Point of Care 305 mg/dl (65-105)
[2022-11-11 10:15] LABS: Glucose Point of Care 498 mg/dl (65-105)
[2022-11-11] MEDS: metFORMIN HCL 500 MG TABLET PO (10:30)
[2022-11-11] MEDS: INSULIN HUMAN REGULAR (*BKC) 100 UNITS/ML 7 UNITS IV PUSH ×2 (10:43→12:00)
[2022-11-11] MEDS: SODIUM CHLORIDE 0.9% IV 1,000 ML 999 ML IV CONT ×2 (10:43→12:00)
[2022-11-11 11:39] LABS: Glucose Point of Care 448 mg/dl (65-105)
[2022-11-11 12:32] LABS: Anion Gap 7 mmol/L (8-16); Blood Urea Nitrogen 11 mg/dL (7-17); Calcium 8.5 mg/dL (8.4-10.2); Carbon Dioxide 25 mmol/L (22-30); Chloride 99 mmol/L (98-107); Estimated CRCL calculation 169 ml/min; Estimated Glomerular Filt Rate > 60; Glucose 411 mg/dL (65-110); Potassium 3.4 mmol/L (3.4-5.0); Sodium 131 mmol/L (137-145)
[2022-11-11 16:15] LABS: Glucose Point of Care 472 mg/dl (65-105)
[2022-11-11 17:11] LABS: Hemoglobin A1C > 14.0 % (<5.7)
[2022-11-11 17:48] LABS: Glucose Point of Care 422 mg/dl (65-105)
[2022-11-11] MEDS: INSULIN ASPART (*BKC) 100 UNITS/ML 15 UNITS SUB-Q (17:48)
--- NOTE | 2022-11-11 18:00 | PC.NURSE ---
pt randomly crying in room
[2022-11-11 18:38] VITALS: BP 119/54; PULSE 85; RESP 20; TEMP 36.6; O2SAT 100
--- NOTE | 2022-11-11 19:00 | WPDCN ---
Assessment and Plan Assessment and plan (1) Poorly controlled diabetes mellitus: Code(s): E11.65 - Type 2 diabetes mellitus with hyperglycemia Status: Acute (2) Type 2 diabetes mellitus with hyperglycemia: Code(s): E11.65 - Type 2 diabetes mellitus with hyperglycemia Status: Acute (3) Suicidal ideation: Code(s): R45.851 - Suicidal ideations Status: Acute Plan The patient has uncontrolled diabetes. She was previously under the care of Dr. Asmita Leiva, Endocrinology, and she had the patient on Trulicity and Tresiba 90 units at nighttime. More recently she established with a new primary care provider after being off her medicine for it time and she was started on metformin 500 mg b.i.d. and Lantus 10 units at bedtime. Today her hemoglobin A1c is greater than 14% and she obviously has a much higher insulin requirement than what she has been getting. I recommend resuming metformin 500 mg b.i.d. and starting Lantus 80 units at bedtime with 5 units short-acting insulin with meals to start. She needs to follow-up with her doctor or pl sql programmer to discuss resuming Trulicity. Recommend repeating BMP this evening to ensure her electrolytes are stable after receiving insulin. There is no evidence to suggest DKA or HHS and she is medically stable for transfer to a psychiatric facility. HPI Data of Consult Date/Time: 11/11/22 19:00 Requesting Physician: Dr. Aleah Asencio MD. Primary Care Provider: Dee Segura, PA Consult Narrative Reason for consult: Uncontrolled diabetes. Narrative: This is a 22-year-old female with insulin-dependent diabetes, depression, anxiety, posttraumatic stress disorder, schizophrenia, and polycystic ovarian syndrome whom the hospitalist service has been consulted for help regarding her uncontrolled diabetes. She presented to the emergency department yesterday afternoon with suicidal ideation. She had apparently seen a new psychiatrist yesterday at which time she was diagnosed with schizophrenia. After leaving the office she became overwhelmed and had persistent thoughts of suicide. It was felt that she would best be served at inpatient psychiatric facility and transfer was initiated. Due to her uncontrolled glucose however she has not yet been excepted until medically cleared. Her vital signs have been stable. Lab work drawn yesterday was significant for sodium of 131, potassium 3.4, BUN 11, creatinine 0.50, glucose 411. Hemoglobin A1c was greater than 14%. The patient tells me that she was previously seen by pl sql programmer, Dr. Leiva, and she was on Tresiba 90 units at bedtime as well as Trulicity. For some reason she stopped taking those medications and more recently she establish with a new primary care provider who started her on metformin 500 mg b.i.d. and Lantus 10 units at bedtime. Her glucose has been running in the 300s to 400s consistently since that time. She denies blurry vision but does report that she is thirsty quite a bit. She denies nonhealing wounds. No fever, chills, or sweats. She has not had chest pain or shortness of breath. No nausea, vomiting, or diarrhea. Review of Systems Review of Systems: Twelve systems were reviewed and are negative except for as per HPI. [facility] Past Medical History Medical History (Updated 11/12/22 @ 01:15 by Bruna Stein PA-C) Anxiety and depression Depression Dyslipidemia History of migraine Polycystic ovarian syndrome Posttraumatic stress disorder Temporomandibular joint syndrome Type 2 diabetes mellitus Surgical History Surgical History History of dental surgery History of toe surgery Bilateral for ingrown toenail Family History Family History Other Diabetes mellitus Heart disease Hypertension Social History Social History (Updated 11/12/22 @ 01:16 by Bruna Stein PA-C) Social History
[2022-11-11 19:42] LABS: Glucose Point of Care 321 mg/dl (65-105)
[2022-11-11] MEDS: INSULIN ASPART (*BKC) 100 UNITS/ML 10 UNITS SUB-Q (19:52)
--- NOTE | 2022-11-11 21:31 | PC.NURSE ---
POC BEDSIDE GLUCOSE IS 208 AT THIS TIME.
[2022-11-11 21:33] LABS: Glucose Point of Care 208 mg/dl (65-105)
[2022-11-11] MEDS: INSULIN GLARGINE (*BKC) 100 UNITS/ML 80 UNITS SUB-Q (22:23)
--- NOTE | 2022-11-11 22:24 | PC.NURSE ---
CALLED [facility] AT [facility], SPOKE WITH CHAPIS @ . CHAPIS SAID THAT HE WOULD SEND SOMEONE OUT.
[2022-11-12] VITALS (8 sets, daily range): BP systolic 112–128; BP diastolic 70–79; PULSE 86–103; RESP 16–20; TEMP 36.6–36.9; O2SAT 99–100; BMI 35.0
[2022-11-12 06:07] LABS: Anion Gap 5 mmol/L (8-16); Blood Urea Nitrogen 12 mg/dL (7-17); Calcium 8.9 mg/dL (8.4-10.2); Carbon Dioxide 29 mmol/L (22-30); Chloride 101 mmol/L (98-107); Estimated CRCL calculation 206 ml/min; Estimated Glomerular Filt Rate > 60; Glucose 275 mg/dL (65-110); Potassium 3.8 mmol/L (3.4-5.0); Sodium 135 mmol/L (137-145)
--- NOTE | 2022-11-12 07:11 | PC.NURSE ---
Report given to Meera BYRD
--- NOTE | 2022-11-12 07:17 | PC.NURSE ---
Assumed care of pt, pt is alert and upright, discussed POC, breakfast tray ordered for pt.
[2022-11-12] MEDS: metFORMIN HCL XR 500 MG TAB.SR.24H PO (07:52)
[2022-11-12 07:53] LABS: Glucose Point of Care 270 mg/dl (65-105)
[2022-11-12] MEDS: INSULIN ASPART (*BKC) 100 UNITS/ML SUB-Q ×2 (07:53→16:50)
--- NOTE | 2022-11-12 08:57 | PC.NURSE ---
Latoya from [facility] called to inquire on pts BS this AM, this RN gave results, Latoya states she will call [facility] today with the sugar being lower and see if they will reconsider accepting pt. Will also cont to seek placement at other facilities. Pt given PO Tylenol for c/o H/A.
[2022-11-12] MEDS: ACETAMINOPHEN 500 MG TABLET 1000 MG PO (09:02)
[2022-11-12 09:25] LABS: Glucose Point of Care 386 mg/dl (65-105)
[2022-11-12] MEDS: DOCUSATE SODIUM 100 MG CAPSULE PO ×2 (09:57→22:09)
--- NOTE | 2022-11-12 10:09 | PC.NURSE ---
Per Latoya dotson/ Louise, VS and labs refaxed to [facility] as requested.
[2022-11-12 10:34] LABS: Glucose Point of Care 315 mg/dl (65-105)
[2022-11-12 13:05] LABS: Glucose Point of Care 307 mg/dl (65-105)
--- NOTE | 2022-11-12 14:52 | PM.IMHP ---
H&P: HPI History of Present Illness Date/Time: 11/12/22 14:52 Chief Complaint: Suicidal ideation Narrative: This is a 22-year-old female patient who has a history depression and schizophrenia. The patient came into the emergency room with suicidal ideation on 11/10/2022. The patient had been seeing a new psychiatrist who diagnosed her with schizophrenia. The patient has been unable to take her medication due to insurance problems. The patient stated that she has been having hallucinations. She stated that she is tired of taking medications and tired of dealing with this. The patient stated that her blood sugars are always in the 3-4 0s. The patient stated that she just did not want to live anymore she had thoughts of suicide. She feels overwhelmed with her medical and psychiatric conditions. She denies any homicidal ideation. She has chronic visual and auditory hallucinations. The patient stated that she just wants them all to go away. The patient stated that the voices mock her and argue with her. The patient was in tears when I saw her and she stated that she is just tired of taking medications and tired of being sick and does not want to take any medications anymore and just wants to end her life. Patient stated that she is upset about having to fight with the insurance company over her medications. She stated she has been having difficulty seeing her specialist and she is tired of her blood sugars not being under control. Her blood sugars are always in the 3 and 400s. The patient stated she is not able to afford her insulin. Her A1c is greater than 14. The patient is awaiting transfer to psychiatric care facility inpatient. The patient is being admitted to observation status on the date of service of 11/12/2022. Review of Systems Review of Systems: All systems reviewed & are unremarkable except as noted in HPI and below Constitutional: Constitutional: Reports as per HPI and Reports no additional constitutional complaints Eyes: Eyes: Reports as per HPI and Reports no additional eye complaints ENT: Reports system reviewed and no additional complaints, except as documented and Reports Normal hearing present Cardiovascular: Cardiovascular: Reports no additional cardiovascular complaints Respiratory: Respiratory: Reports no additional respiratory complaints and Reports no additional respiratory complaints Gastrointestinal: Gastrointestinal: Reports as per HPI and Reports no additional gastrointestinal complaints Musculoskeletal: Musculoskeletal: Reports no additional musculoskeletal complaints Integumentary/Breasts: Skin/Breast: Reports system reviewed and no additional complaints, except as docu and Reports as per HPI Neurologic: Reports system reviewed and no additional complaints, except as documented, Reports as per HPI and Reports Normal hearing present Psychiatric: Psychiatric: Reports no additional psychiatric complaints and Reports as per HPI Endocrine: Endocrine: Reports no additional endocrine complaints Hematologic/Lymphatic: Hematologic/Lymphatic: Reports no additional hematologic/lymphatic complaints Allergic/Immunologic: Allergic/Immunologic: Reports no additional allergic/immunologic complaints PMFSH Past Medical History Medical History Anxiety and depression Depression Dyslipidemia History of migraine Polycystic ovarian syndrome Posttraumatic stress disorder Temporomandibular joint syndrome Type 2 diabetes mellitus Surgical History Surgical History H/O esophagogastroduodenoscopy History of dental surgery History of toe surgery Bilateral for ingrown toenail Family History Family History (Updated 11/12/22 @ 15:22 by Annita Moralez NP) Mother Diabetes mellitus Hypertension Father Diabetes mellitus Hypertension Other Heart disease Social History Social History (Updat
[2022-11-12 18:21] LABS: Glucose Point of Care 327 mg/dl (65-105)
[2022-11-12 19:28] LABS: Glucose Point of Care 288 mg/dl (65-105)
[2022-11-12] MEDS: INSULIN GLARGINE (*BKC) 100 UNITS/ML 80 UNITS SUB-Q (22:09)
[2022-11-13] VITALS (9 sets, daily range): BP systolic 118–138; BP diastolic 69–80; PULSE 69–98; RESP 16–20; TEMP 36.6–37; O2SAT 98–100
[2022-11-13 04:37] LABS: Basophils Percent Auto 0.4 % (0.2-1.2); Eosinophils Absolute Auto 0.1 K/mm3 (0-0.3); Eosinophils Percent Auto 0.8 % (0-4.4); Hematocrit 40.3 % (37.0-47.0); Hemoglobin 13.9 g/dL (12.0-15.0); Immature Granulocyte Absolute 0.02 K/mm3 (0.00-0.031); Immature Granulocyte Percent A 0.3 % (0-0.5); Lymphocytes Absolute Auto 4.24 K/mm3 (0.9-3.2); Lymphocytes Percent Auto 56.2 % (18.3-44.2); Mean Corpuscular HGB Conc 34.5 g/dl (32-36); Mean Corpuscular Hemoglobin 30.7 pg (26-34); Mean Platelet Volume 10.5 fl (7.4-10.4); Monocytes Absolute Auto 0.5 K/mm3 (0.1-0.6); Monocytes Percent Auto 6.4 % (2.6-8.5); Neutrophils Absolute Auto 2.7 K/mm3 (1.3-6.7); Neutrophils Percent Auto 35.9 % (45.5-73.1); Platelet Count Result 250 k/mm3 (150-375); Red Blood Count 4.53 M/mm3 (4.2-5.4); Red Cell Distribution Width 12.3 % (11.5-14.5); White Blood Count 7.6 K/mm3 (4.5-10.0)
[2022-11-13 04:57] LABS: Alanine Aminotransferase 19 U/L (6-35); Albumin Level 3.9 g/dL (3.5-5.1); Alkaline Phosphatase 71 U/L (38-126); Anion Gap 6 mmol/L (8-16); Aspartate Amino Transferase 16 U/L (14-36); Bilirubin,Total 0.7 mg/dL (0.2-1.3); Blood Urea Nitrogen 13 mg/dL (7-17); Calcium 9.1 mg/dL (8.4-10.2); Carbon Dioxide 26 mmol/L (22-30); Chloride 103 mmol/L (98-107); Estimated CRCL calculation 192 ml/min; Estimated Glomerular Filt Rate > 60; Glucose 224 mg/dL (65-110); Lactic Acid Reflex 0.9 mmol/L (0.7-2.0); Magnesium 1.7 mg/dL (1.6-2.3); Potassium 3.3 mmol/L (3.4-5.0); Sodium 135 mmol/L (137-145)
[2022-11-13] MEDS: INSULIN ASPART (*BKC) 100 UNITS/ML SUB-Q ×3 (08:58→17:06)
--- NOTE | 2022-11-13 09:06 | PM.DS ---
DS: Summary Time Spent with Patient Time attestation: Total time spent providing and/or coordinating discharge services: DS: Data Data Completed and Pending Labs on day of discharge: Labs from last 24 hours 11/13/22 11/13/22 11/13/22 03:56 03:56 03:56 WBC RBC Hgb Hct MCV MCH MCHC RDW Plt Count MPV Immature Gran % (Auto) Neut % (Auto) Lymph % (Auto) [place] % (Auto) Eos % (Auto) Baso % (Auto) Lymph # (Auto) [place] # (Auto) Eos # (Auto) Baso # (Auto) Abs Immat Gran (auto) Absolute Neuts (auto) Absolute Nucleated RBC Nucleated RBC % Sodium 135 L Potassium 3.3 L Chloride 103 Carbon Dioxide 26 Anion Gap 6 L BUN 13 Creatinine 0.40 L Estim Creat Clear Calc 192 Estimated GFR > 60 Glucose 224 H POC Capillary Glucose Lactic Acid 0.9 Calcium 9.1 Magnesium 1.7 Total Bilirubin 0.7 AST 16 ALT 19 Alkaline Phosphatase 71 Total Protein 6.0 L Albumin 3.9 TSH (Reflex) 3.100 11/13/22 11/12/22 11/12/22 03:56 19:23 16:47 WBC 7.6 RBC 4.53 Hgb 13.9 Hct 40.3 MCV 89.0 MCH 30.7 MCHC 34.5 RDW 12.3 Plt Count 250 MPV 10.5 H Immature Gran % (Auto) 0.3 Neut % (Auto) 35.9 L Lymph % (Auto) 56.2 H [place] % (Auto) 6.4 Eos % (Auto) 0.8 Baso % (Auto) 0.4 Lymph # (Auto) 4.24 H [place] # (Auto) 0.5 Eos # (Auto) 0.1 Baso # (Auto) 0.0 Abs Immat Gran (auto) 0.02 Absolute Neuts (auto) 2.7 Absolute Nucleated RBC 0.0 Nucleated RBC % 0.0 Sodium Potassium Chloride Carbon Dioxide Anion Gap BUN Creatinine Estim Creat Clear Calc Estimated GFR Glucose POC Capillary Glucose 288 H 327 H Lactic Acid Calcium Magnesium Total Bilirubin AST ALT Alkaline Phosphatase Total Protein Albumin TSH (Reflex) 11/12/22 11/12/22 11/12/22 13:03 10:30 09:17 WBC RBC Hgb Hct MCV MCH MCHC RDW Plt Count MPV Immature Gran % (Auto) Neut % (Auto) Lymph % (Auto) [place] % (Auto) Eos % (Auto) Baso % (Auto) Lymph # (Auto) [place] # (Auto) Eos # (Auto) Baso # (Auto) Abs Immat Gran (auto) Absolute Neuts (auto) Absolute Nucleated RBC Nucleated RBC % Sodium Potassium Chloride Carbon Dioxide Anion Gap BUN Creatinine Estim Creat Clear Calc Estimated GFR Glucose POC Capillary Glucose 307 H 315 H 386 H Lactic Acid Calcium Magnesium Total Bilirubin AST ALT Alkaline Phosphatase Total Protein Albumin TSH (Reflex) Discharge Plan Discharge Attending physician on discharge: Richard Concepcion Discharging Clinician: Richard Concepcion Activity: as tolerated Diet: diabetic Discharge Instructions: Patient is being discharge to [facility], patient has uncontrolled DM, will need close monitering of her blood sugars. Discharge Medications: Continued Lantus U-100 Insulin 100 unit/mL Cartridge 30 unit SUBCUT HS aripiprazole 5 mg tablet 5 mg PO DAILY Qty: 30 0RF sertraline [Zoloft] 100 mg Tablet 100 mg PO DAILY Humalog Mix 50-50 Insuln U-100 100 unit/mL (50-50) suspension 1 sliding scale dose subcut USEASDIRECTD Qty: 10 1RF (DME) lancets [Easy Touch Lancets] 26 gauge misc See Rx Instructions .ROUTE .MEDSUPPLY Qty: 100 0RF Rx Instructions: As directed (DME) Truetest Test Strips Strip See Rx Instructions .ROUTE .MEDSUPPLY Qty: 10 0RF Rx Instructions: As directed (DME) pen needle, diabetic [Easy Comfort Pen [place]] 33 gauge x 5/32 needle See Rx Instructions .ROUTE .MEDSUPPLY Qty: 100 0RF Rx Instructions: As directed metformin 500 mg tablet extended release 24 hr 500 mg PO BID lorazepam 0.5 mg tablet 0.5 mg PO TID albuterol s
[2022-11-13 11:36] LABS: Glucose Point of Care 222 mg/dl (65-105)
[2022-11-13 11:36] LABS: Glucose Point of Care 303 mg/dl (65-105)
[2022-11-13] MEDS: HYDROcodone/acetaminophen (*CRX) 5-325 MG TABLET 1 TAB PO (12:10)
[2022-11-13 12:59] LABS: EDCOVIDSCREEN Negative (Negative)
--- NOTE | 2022-11-13 13:15 | PC.NURSE ---
Recent labs from the last 24 hours including cmp, cbc, blood sugars and repeat covid test sent to [facility] for inpatient evaluation.
[2022-11-13 16:42] LABS: Glucose Point of Care 309 mg/dl (65-105)
[2022-11-13] MEDS: DOCUSATE SODIUM 100 MG CAPSULE PO ×2 (16:52→19:56)
[2022-11-13] MEDS: ONDANSETRON INJ 4 MG/2 ML VIAL IV PUSH (18:35)
--- NOTE | 2022-11-13 18:37 | PC.NURSE ---
Received update from Suzette at [facility] intake. Medical team at facility is unwilling to accept patient due to complicated Diabetes and cardiac comorbidities. They suggest a facility with endocrinology services.
[2022-11-13] MEDS: INSULIN GLARGINE (*BKC) 100 UNITS/ML 80 UNITS SUB-Q (19:53)
[2022-11-13 20:15] LABS: Glucose Point of Care 264 mg/dl (65-105)
[2022-11-13] MEDS: ACETAMINOPHEN 325 MG TABLET 650 MG PO (21:26)
[2022-11-14] MEDS: PROMETHAZINE HCL 25 MG/ML AMPUL IM (00:47)
[2022-11-14] MEDS: PANTOPRAZOLE SODIUM IV 40 MG VIAL IV PUSH (01:08)
[2022-11-14 03:23] VITALS: BP 112/55; PULSE 112; RESP 18; TEMP 36.8; O2SAT 97
[2022-11-14 08:00] VITALS: PULSE 96; RESP 14; O2SAT 97
[2022-11-14] MEDS: INSULIN ASPART (*BKC) 100 UNITS/ML SUB-Q (08:10)
[2022-11-14 08:14] VITALS: BP 127/70; PULSE 81; RESP 14; TEMP 37.6; O2SAT 100
[2022-11-14 08:14] LABS: Glucose Point of Care 228 mg/dl (65-105)
[2022-11-14 11:44] LABS: Glucose Point of Care 183 mg/dl (65-105)
[2022-11-14] MEDS: METOCLOPRAMIDE HCL INJ 10 MG/2 ML VIAL 5 MG IV PUSH (12:21)
[2022-11-14 15:41] LABS: SARS-CoV-2 RNA PCR Negative
[2022-11-14 16:00] VITALS: BP 91/49; PULSE 102; RESP 20; O2SAT 99
[2022-11-14 16:01] LABS: Glucose Point of Care 155 mg/dl (65-105)
--- NOTE | 2022-11-14 17:04 | PM.IMPN ---
Progress Note: A&P Assessment and Plan (1) Suicidal ideation: Code(s): R45.851 - Suicidal ideations Status: Acute Assessment and Plan: 11/13/2022 interval history: 22-year-old female with history of depression and schizophrenia presented emergency department with hallucination and suicidal ideation, plan was to discharge to psychiatric hospital patient has a uncontrolled diabetes with elevated blood sugar and hemoglobin A1c of 14, plan is to bring the patient blood sugar under reasonable control and possibly discharge the patient to [facility]. Will continue to monitor (2) Poorly controlled diabetes mellitus: Code(s): E11.65 - Type 2 diabetes mellitus with hyperglycemia Status: Acute Assessment and Plan: Will have conservation educator work with the patient (3) Dyslipidemia: Code(s): E78.5 - Hyperlipidemia, unspecified Status: Acute Assessment and Plan: Will check lipid panel (4) Anxiety and depression: Code(s): F41.9 - Anxiety disorder, unspecified; F32.A - Depression, unspecified Status: Acute Assessment and Plan: Patient with history of anxiety and depression patient will benefit going to inpatient [facility]. (5) Posttraumatic stress disorder: Code(s): F43.10 - Post-traumatic stress disorder, unspecified Status: Acute (6) Polycystic ovarian syndrome: Code(s): E28.2 - Polycystic ovarian syndrome Status: Acute Subjective Date/time seen: 11/13/22 10:00 Suicidal ideation HPI-Narrative: This is a 22-year-old female patient who has a history depression and schizophrenia.? The patient came into the emergency room with suicidal ideation on 11/10/2022.? The patient had been seeing a new psychiatrist who diagnosed her with schizophrenia.? The patient has been unable to take her medication due to insurance problems.? The patient stated that she has been having hallucinations.? She stated that she is tired of taking medications and tired of dealing with this.? The patient stated that her blood sugars are always in the 3-4 0s.? The patient stated that she just did not want to live anymore she had thoughts of suicide.? She feels overwhelmed with her medical and psychiatric conditions.? She denies any homicidal ideation.? She has chronic visual and auditory hallucinations.? The patient stated that she just wants them all to go away.? The patient stated that the voices mock her and? argue with her.? The patient was in tears when I saw her and she stated that she is just tired of taking medications and tired of being sick and does not want to take any medications anymore and just wants to end her life.? Patient stated that she is upset about having to fight with the insurance company over her medications.? She stated she has been having difficulty seeing her specialist and she is tired of her blood sugars not being under control.? Her blood sugars are always in the 3 and 400s.? The patient stated she is not able to afford her insulin.? Her A1c is greater than 14.? The patient is awaiting transfer to psychiatric care facility inpatient. 11/13/2022 interval history: 22-year-old female with history of depression and schizophrenia presented emergency department with hallucination and suicidal ideation, plan was to discharge to psychiatric hospital patient has a uncontrolled diabetes with elevated blood sugar and hemoglobin A1c of 14, plan is to bring the patient blood sugar under reasonable control and possibly discharge the patient to [facility]. Will continue to monitor Review of Systems Review of Systems: All systems reviewed & are unremarkable except as noted in HPI and below Constitutional: Constitutional: Reports as per HPI and Reports no additional constitutional complaints Eyes: Eyes: Reports as per HPI and Reports no additional eye complaints ENT: Reports system reviewed and no additional complaints, except as documented and Reports Normal hearing
--- NOTE | 2022-11-14 17:18 | PM.IMPN ---
Progress Note: A&P Assessment and Plan (1) Suicidal ideation: Code(s): R45.851 - Suicidal ideations Status: Acute Assessment and Plan: HPI-Narrative: This is a 22-year-old female patient who has a history depression and schizophrenia.? The patient came into the emergency room with suicidal ideation on 11/10/2022.? The patient had been seeing a new psychiatrist who diagnosed her with schizophrenia.? The patient has been unable to take her medication due to insurance problems.? The patient stated that she has been having hallucinations.? She stated that she is tired of taking medications and tired of dealing with this.? The patient stated that her blood sugars are always in the 3-4 0s.? The patient stated that she just did not want to live anymore she had thoughts of suicide.? She feels overwhelmed with her medical and psychiatric conditions.? She denies any homicidal ideation.? She has chronic visual and auditory hallucinations.? The patient stated that she just wants them all to go away.? The patient stated that the voices mock her and? argue with her.? The patient was in tears when I saw her and she stated that she is just tired of taking medications and tired of being sick and does not want to take any medications anymore and just wants to end her life.? Patient stated that she is upset about having to fight with the insurance company over her medications.? She stated she has been having difficulty seeing her specialist and she is tired of her blood sugars not being under control.? Her blood sugars are always in the 3 and 400s.? The patient stated she is not able to afford her insulin.? Her A1c is greater than 14.? The patient is awaiting transfer to psychiatric care facility inpatient. 11/14/2022 interval history: 22-year-old female with history of depression and schizophrenia presented emergency department with hallucination and suicidal ideation, plan was to discharge to psychiatric hospital patient has a uncontrolled diabetes with elevated blood sugar and hemoglobin A1c of 14, most likely secondary noncompliance with medical regimen, we have resumed patient's home medication, plan is to bring the patient blood sugar under reasonable control and possibly discharge the patient to [facility]. Today patient complains nausea and bloating most likely patient has diabetic gastroparesis will start the patient on Reglan, will continue to monitor (2) Poorly controlled diabetes mellitus: Code(s): E11.65 - Type 2 diabetes mellitus with hyperglycemia Status: Acute Assessment and Plan: Will have environmental educator work with the patient (3) Dyslipidemia: Code(s): E78.5 - Hyperlipidemia, unspecified Status: Acute Assessment and Plan: Will check lipid panel (4) Anxiety and depression: Code(s): F41.9 - Anxiety disorder, unspecified; F32.A - Depression, unspecified Status: Acute Assessment and Plan: Patient with history of anxiety and depression patient will benefit going to inpatient [facility]. (5) Posttraumatic stress disorder: Code(s): F43.10 - Post-traumatic stress disorder, unspecified Status: Acute (6) Polycystic ovarian syndrome: Code(s): E28.2 - Polycystic ovarian syndrome Status: Acute Subjective Date/time seen: 11/14/22 17:18 HPI-Narrative: This is a 22-year-old female patient who has a history depression and schizophrenia.? The patient came into the emergency room with suicidal ideation on 11/10/2022.? The patient had been seeing a new psychiatrist who diagnosed her with schizophrenia.? The patient has been unable to take her medication due to insurance problems.? The patient stated that she has been having hallucinations.? She stated that she is tired of taking medications and tired of dealing with this.? The patient stated that her blood sugars are always in the 3-4 0s.? The patient stated that she just did not want to live anymore she had thoughts o
[2022-11-14 20:00] VITALS: BP 105/69; PULSE 104; RESP 12; TEMP 37.1; O2SAT 97
[2022-11-14 20:22] LABS: Glucose Point of Care 285 mg/dl (65-105)
[2022-11-14] MEDS: INSULIN GLARGINE (*BKC) 100 UNITS/ML 80 UNITS SUB-Q (20:40)
[2022-11-15 04:00] VITALS: BP 111/78; PULSE 100; RESP 14; TEMP 36.8; O2SAT 98
[2022-11-15 08:00] VITALS: BP 111/65; PULSE 82; RESP 18; TEMP 36.8; O2SAT 98; O2SAT 99
[2022-11-15 09:19] LABS: Glucose Point of Care 220 mg/dl (65-105)
[2022-11-15] MEDS: ENOXAPARIN 40 MG/0.4 ML SYRINGE SUB-Q (10:14)
[2022-11-15] MEDS: PANTOPRAZOLE SODIUM IV 40 MG VIAL IV PUSH (10:14)
[2022-11-15] MEDS: INSULIN ASPART (*BKC) 100 UNITS/ML SUB-Q (12:42)
[2022-11-15 12:57] LABS: Glucose Point of Care 209 mg/dl (65-105)
--- NOTE | 2022-11-15 13:42 | PM.IMPN ---
Progress Note: A&P Assessment and Plan (1) Suicidal ideation: Code(s): R45.851 - Suicidal ideations Status: Acute Assessment and Plan: HPI-Narrative: This is a 22-year-old female patient who has a history depression and schizophrenia.? The patient came into the emergency room with suicidal ideation on 11/10/2022.? The patient had been seeing a new psychiatrist who diagnosed her with schizophrenia.? The patient has been unable to take her medication due to insurance problems.? The patient stated that she has been having hallucinations.? She stated that she is tired of taking medications and tired of dealing with this.? The patient stated that her blood sugars are always in the 3-4 0s.? The patient stated that she just did not want to live anymore she had thoughts of suicide.? She feels overwhelmed with her medical and psychiatric conditions.? She denies any homicidal ideation.? She has chronic visual and auditory hallucinations.? The patient stated that she just wants them all to go away.? The patient stated that the voices mock her and? argue with her.? The patient was in tears when I saw her and she stated that she is just tired of taking medications and tired of being sick and does not want to take any medications anymore and just wants to end her life.? Patient stated that she is upset about having to fight with the insurance company over her medications.? She stated she has been having difficulty seeing her specialist and she is tired of her blood sugars not being under control.? Her blood sugars are always in the 3 and 400s.? The patient stated she is not able to afford her insulin.? Her A1c is greater than 14.? The patient is awaiting transfer to psychiatric care facility inpatient. 11/15/2022 interval history: 22-year-old female with history of depression and schizophrenia presented emergency department with hallucination and suicidal ideation, plan was to discharge to psychiatric hospital patient has a uncontrolled diabetes with elevated blood sugar and hemoglobin A1c of 14, most likely secondary noncompliance with medical regimen, we have resumed patient's home medication, plan is to bring the patient blood sugar under reasonable control and possibly discharge the patient to [facility]. on 11/14 patient complained nausea and bloating most likely patient has diabetic gastroparesis started the patient on Reglan, patient remains clinically stable waiting for bed at the psychiatry hospital, will continue to monitor (2) Poorly controlled diabetes mellitus: Code(s): E11.65 - Type 2 diabetes mellitus with hyperglycemia Status: Acute Assessment and Plan: Will have hospital educator work with the patient (3) Dyslipidemia: Code(s): E78.5 - Hyperlipidemia, unspecified Status: Acute Assessment and Plan: Will check lipid panel (4) Anxiety and depression: Code(s): F41.9 - Anxiety disorder, unspecified; F32.A - Depression, unspecified Status: Acute Assessment and Plan: Patient with history of anxiety and depression patient will benefit going to inpatient [facility]. (5) Posttraumatic stress disorder: Code(s): F43.10 - Post-traumatic stress disorder, unspecified Status: Acute (6) Polycystic ovarian syndrome: Code(s): E28.2 - Polycystic ovarian syndrome Status: Acute Subjective Date/time seen: 11/15/22 13:42 HPI-Narrative: This is a 22-year-old female patient who has a history depression and schizophrenia.? The patient came into the emergency room with suicidal ideation on 11/10/2022.? The patient had been seeing a new psychiatrist who diagnosed her with schizophrenia.? The patient has been unable to take her medication due to insurance problems.? The patient stated that she has been having hallucinations.? She stated that she is tired of taking medications and tired of dealing with this.? The patient stated that her blood sugars are always in the 3-4 0s.? T
--- NOTE | 2022-11-15 15:56 | PC.NURSE ---
Jose from [employer] called requesting patient information be faxed to [facility]. . [facility]. Phone number [phone] ask for [facility]. All information was faxed on 11/15/2022 at 15:40
[2022-11-15 16:00] VITALS: BP 124/83; PULSE 84; RESP 18; TEMP 36.9; O2SAT 100
[2022-11-15 17:42] LABS: Glucose Point of Care 137 mg/dl (65-105)
[2022-11-15 20:20] LABS: Glucose Point of Care 176 mg/dl (65-105)
[2022-11-15] MEDS: INSULIN GLARGINE (*BKC) 100 UNITS/ML 80 UNITS SUB-Q (20:22)
[2022-11-16] VITALS: BP 108/72; PULSE 99; RESP 18; TEMP 37; O2SAT 99
[2022-11-16 06:19] VITALS: BP 95/52; PULSE 86; RESP 18; TEMP 36.3; O2SAT 98
[2022-11-16 07:52] LABS: Glucose Point of Care 93 mg/dl (65-105)
[2022-11-16 08:00] VITALS: BP 118/69; PULSE 93; RESP 18; TEMP 36.8; O2SAT 98
[2022-11-16] MEDS: PANTOPRAZOLE SODIUM IV 40 MG VIAL IV PUSH (08:34)
[2022-11-16] MEDS: DOCUSATE SODIUM 100 MG CAPSULE PO ×2 (08:34→20:29)
[2022-11-16] MEDS: ENOXAPARIN 40 MG/0.4 ML SYRINGE SUB-Q (08:34)
[2022-11-16 09:03] LABS: Hematocrit 39.1 % (37.0-47.0); Hemoglobin 13.1 g/dL (12.0-15.0); Mean Corpuscular HGB Conc 33.5 g/dl (32-36); Mean Corpuscular Hemoglobin 30.8 pg (26-34); Mean Platelet Volume 9.9 fl (7.4-10.4); Platelet Count Result 218 k/mm3 (150-375); Red Blood Count 4.25 M/mm3 (4.2-5.4); Red Cell Distribution Width 12.6 % (11.5-14.5); White Blood Count 7.6 K/mm3 (4.5-10.0)
[2022-11-16 09:18] LABS: Albumin Level 3.7 g/dL (3.5-5.1); Anion Gap 7 mmol/L (8-16); Blood Urea Nitrogen 11 mg/dL (7-17); Calcium 8.5 mg/dL (8.4-10.2); Carbon Dioxide 26 mmol/L (22-30); Chloride 105 mmol/L (98-107); Estimated CRCL calculation 186 ml/min; Estimated Glomerular Filt Rate > 60; Glucose 134 mg/dL (65-110); Magnesium 1.7 mg/dL (1.6-2.3); Phosphorus 4.8 mg/dL (2.5-4.5); Potassium 3.4 mmol/L (3.4-5.0); Sodium 138 mmol/L (137-145)
[2022-11-16] MEDS: POTASSIUM CHLORIDE 20 MEQ TABLET 40 MEQ PO (10:45)
[2022-11-16] MEDS: MAGNESIUM OXIDE 400 MG TABLET PO (10:46)
--- NOTE | 2022-11-16 11:12 | PC.NURSE ---
Spoke with Bianka from [facility]. Updated her with current vitals and blood sugars. Bianka stated she will start calling for placement around 11:30. Will foolowup with Bianka throughout the day.
[2022-11-16 11:42] LABS: Glucose Point of Care 165 mg/dl (65-105)
--- NOTE | 2022-11-16 13:47 | PM.IMPN ---
Progress Note: A&P Assessment and Plan (1) Suicidal ideation: Code(s): R45.851 - Suicidal ideations Status: Acute Assessment and Plan: HPI-Narrative: This is a 22-year-old female patient who has a history depression and schizophrenia.? The patient came into the emergency room with suicidal ideation on 11/10/2022.? The patient had been seeing a new psychiatrist who diagnosed her with schizophrenia.? The patient has been unable to take her medication due to insurance problems.? The patient stated that she has been having hallucinations.? She stated that she is tired of taking medications and tired of dealing with this.? The patient stated that her blood sugars are always in the 3-4 0s.? The patient stated that she just did not want to live anymore she had thoughts of suicide.? She feels overwhelmed with her medical and psychiatric conditions.? She denies any homicidal ideation.? She has chronic visual and auditory hallucinations.? The patient stated that she just wants them all to go away.? The patient stated that the voices mock her and? argue with her.? The patient was in tears when I saw her and she stated that she is just tired of taking medications and tired of being sick and does not want to take any medications anymore and just wants to end her life.? Patient stated that she is upset about having to fight with the insurance company over her medications.? She stated she has been having difficulty seeing her specialist and she is tired of her blood sugars not being under control.? Her blood sugars are always in the 3 and 400s.? The patient stated she is not able to afford her insulin.? Her A1c is greater than 14.? The patient is awaiting transfer to psychiatric care facility inpatient. 11/16/2022 interval history: 22-year-old female with history of depression and schizophrenia presented emergency department with hallucination and suicidal ideation, plan was to discharge to psychiatric hospital patient has a uncontrolled diabetes with elevated blood sugar and hemoglobin A1c of 14, most likely secondary noncompliance with medical regimen, we have resumed patient's home medication, plan is to bring the patient blood sugar under reasonable control and possibly discharge the patient to [facility]. Today patient blood sugars close to target patient is medically cleared to be transferred to [facility], patient will continue current regimen, on 11/14 patient complained nausea and bloating most likely patient has diabetic gastroparesis started the patient on Reglan, patient remains clinically stable waiting for bed at the psychiatry hospital, will continue to monitor (2) Poorly controlled diabetes mellitus: Code(s): E11.65 - Type 2 diabetes mellitus with hyperglycemia Status: Acute Assessment and Plan: Will have clinical nurse educator work with the patient (3) Dyslipidemia: Code(s): E78.5 - Hyperlipidemia, unspecified Status: Acute Assessment and Plan: Will check lipid panel (4) Anxiety and depression: Code(s): F41.9 - Anxiety disorder, unspecified; F32.A - Depression, unspecified Status: Acute Assessment and Plan: Patient with history of anxiety and depression patient will benefit going to inpatient [facility]. (5) Posttraumatic stress disorder: Code(s): F43.10 - Post-traumatic stress disorder, unspecified Status: Acute (6) Polycystic ovarian syndrome: Code(s): E28.2 - Polycystic ovarian syndrome Status: Acute Subjective Date/time seen: 11/16/22 13:47 HPI-Narrative: This is a 22-year-old female patient who has a history depression and schizophrenia.? The patient came into the emergency room with suicidal ideation on 11/10/2022.? The patient had been seeing a new psychiatrist who diagnosed her with schizophrenia.? The patient has been unable to take her medication due to insurance problems.? The patient stated that she has been having hallucinations.? She
[2022-11-16] MEDS: NEOMYCIN/POLYMYXIN/BACITRACIN OINTMENT PACKET 1 PACKET (15:02)
[2022-11-16 16:00] VITALS: BP 116/79; PULSE 77; RESP 18; TEMP 36.6; O2SAT 99
--- NOTE | 2022-11-16 16:08 | PC.NURSE ---
[facility] Denied patient for a second time due to blood glucose levels not being stable long enough. Faxed Face sheet to [facility], . Communicating with Re macdonald [place] Yasmani. [phone].
[2022-11-16 16:29] LABS: Glucose Point of Care 129 mg/dl (65-105)
[2022-11-16 19:42] LABS: Glucose Point of Care 156 mg/dl (65-105)
[2022-11-16 19:47] VITALS: BP 118/76; PULSE 89; RESP 14; TEMP 37.1; O2SAT 98
[2022-11-16] MEDS: INSULIN GLARGINE (*BKC) 100 UNITS/ML 80 UNITS SUB-Q (20:28)
--- NOTE | 2022-11-16 21:38 | ECG_ITS ---
Measurements Intervals [place] Rate: 87 P: 29 [place]: 146 QRS: 44 QRSD: 91 T: 31 QT: 383 QTc: 463 Interpretive Statements SINUS RHYTHM WITH SINUS ARRHYTHMIA BASELINE ARTIFACT- V5 NORMAL ECG COMPARED TO ECG 01/31/2022 13:16:17 SINUS ARRHYTHMIA NOW PRESENT Electronically Signed On 11-17-2022 6:45:58 CDT by Bogdan Pan D.O.
[2022-11-17] VITALS: BP 120/58; PULSE 98; RESP 14; TEMP 37.1; O2SAT 98
[2022-11-17 04:29] LABS: Hematocrit 38.1 % (37.0-47.0); Mean Corpuscular HGB Conc 34.1 g/dl (32-36); Mean Corpuscular Hemoglobin 31.3 pg (26-34); Mean Corpuscular Volume 91.6 fl (80-100); Mean Platelet Volume 9.5 fl (7.4-10.4); Platelet Count Result 236 k/mm3 (150-375); Red Blood Count 4.16 M/mm3 (4.2-5.4); Red Cell Distribution Width 12.4 % (11.5-14.5); White Blood Count 7.2 K/mm3 (4.5-10.0)
[2022-11-17 04:41] LABS: Albumin Level 3.7 g/dL (3.5-5.1); Anion Gap 5 mmol/L (8-16); Blood Urea Nitrogen 10 mg/dL (7-17); Calcium 8.9 mg/dL (8.4-10.2); Carbon Dioxide 29 mmol/L (22-30); Chloride 105 mmol/L (98-107); Estimated CRCL calculation 153 ml/min; Estimated Glomerular Filt Rate > 60; Glucose 88 mg/dL (65-110); Magnesium 1.7 mg/dL (1.6-2.3); Phosphorus 4.9 mg/dL (2.5-4.5); Potassium 3.6 mmol/L (3.4-5.0); Sodium 139 mmol/L (137-145)
[2022-11-17 08:00] VITALS: BP 114/67; PULSE 89; RESP 18; TEMP 36.5; O2SAT 100; O2SAT 98
[2022-11-17] MEDS: GLUCOSE ORAL GEL 15 GM OF GLUCSE IN 37.5 GM TUBE PO (08:05)
[2022-11-17 08:10] LABS: Glucose Point of Care 62 mg/dl (65-105)
--- NOTE | 2022-11-17 08:18 | PC.NURSE ---
Patient Finger stick glucose was 62 at 08:05am. Patient denies any symptoms. Notified Dr. Concepcion, Gave Glucose gel, Patient eating breakfast, Changed Lantus order from 80 units to 40 units per provider order. Will recheck in 1 hour.
[2022-11-17] MEDS: ENOXAPARIN 40 MG/0.4 ML SYRINGE SUB-Q (08:44)
[2022-11-17] MEDS: PANTOPRAZOLE SODIUM IV 40 MG VIAL IV PUSH (08:44)
[2022-11-17] MEDS: DOCUSATE SODIUM 100 MG CAPSULE PO ×2 (08:44→20:06)
[2022-11-17 12:02] LABS: Glucose Point of Care 157 mg/dl (65-105)
[2022-11-17] MEDS: MAGNESIUM OXIDE 400 MG TABLET PO (13:05)
--- NOTE | 2022-11-17 15:53 | ECG_ITS ---
Measurements Intervals [place] Rate: 86 P: 29 [place]: 140 QRS: 38 QRSD: 92 T: 31 QT: 369 QTc: 443 Interpretive Statements SINUS RHYTHM WITH MARKED SINUS ARRHYTHMIA NORMAL ECG COMPARED TO ECG 11/16/2022 21:46:14 NO SIGNIFICANT CHANGES Electronically Signed On 11-17-2022 16:57:03 CDT by Bogdan Pan D.O.
[2022-11-17 16:00] VITALS: BP 113/77; PULSE 89; RESP 18; TEMP 36.9; O2SAT 98
--- NOTE | 2022-11-17 16:45 | PM.IMPN ---
Progress Note: A&P Assessment and Plan (1) Suicidal ideation: Code(s): R45.851 - Suicidal ideations Status: Acute Assessment and Plan: HPI-Narrative: This is a 22-year-old female patient who has a history depression and schizophrenia.? The patient came into the emergency room with suicidal ideation on 11/10/2022.? The patient had been seeing a new psychiatrist who diagnosed her with schizophrenia.? The patient has been unable to take her medication due to insurance problems.? The patient stated that she has been having hallucinations.? She stated that she is tired of taking medications and tired of dealing with this.? The patient stated that her blood sugars are always in the 3-4 0s.? The patient stated that she just did not want to live anymore she had thoughts of suicide.? She feels overwhelmed with her medical and psychiatric conditions.? She denies any homicidal ideation.? She has chronic visual and auditory hallucinations.? The patient stated that she just wants them all to go away.? The patient stated that the voices mock her and? argue with her.? The patient was in tears when I saw her and she stated that she is just tired of taking medications and tired of being sick and does not want to take any medications anymore and just wants to end her life.? Patient stated that she is upset about having to fight with the insurance company over her medications.? She stated she has been having difficulty seeing her specialist and she is tired of her blood sugars not being under control.? Her blood sugars are always in the 3 and 400s.? The patient stated she is not able to afford her insulin.? Her A1c is greater than 14.? The patient is awaiting transfer to psychiatric care facility inpatient. 11/17/2022 interval history: 22-year-old female with history of depression and schizophrenia presented emergency department with hallucination and suicidal ideation, plan was to discharge to psychiatric hospital patient has a uncontrolled diabetes with elevated blood sugar and hemoglobin A1c of 14, most likely secondary noncompliance with medical regimen, we have resumed patient's home medication, currently patient is on Lantus 80 units and fasting blood sugar are below 100, will decrease Lantus to 60 units at the bedtime, plan is to bring the patient blood sugar under reasonable control and possibly discharge the patient [facility]. Today patient blood sugars close to target patient is medically cleared to be transferred to [facility], patient will continue current regimen, on 11/14 patient complained nausea and bloating most likely patient has diabetic gastroparesis started the patient on Reglan, patient remains clinically stable waiting for bed at the psychiatry hospital, patient has no new complaints, will continue to monitor (2) Poorly controlled diabetes mellitus: Code(s): E11.65 - Type 2 diabetes mellitus with hyperglycemia Status: Acute Assessment and Plan: Will have tobacco educator work with the patient (3) Dyslipidemia: Code(s): E78.5 - Hyperlipidemia, unspecified Status: Acute Assessment and Plan: Will check lipid panel (4) Anxiety and depression: Code(s): F41.9 - Anxiety disorder, unspecified; F32.A - Depression, unspecified Status: Acute Assessment and Plan: Patient with history of anxiety and depression patient will benefit going to inpatient [facility]. (5) Posttraumatic stress disorder: Code(s): F43.10 - Post-traumatic stress disorder, unspecified Status: Acute (6) Polycystic ovarian syndrome: Code(s): E28.2 - Polycystic ovarian syndrome Status: Acute Subjective Date/time seen: 11/17/22 16:45 HPI-Narrative: This is a 22-year-old female patient who has a history depression and schizophrenia.? The patient came into the emergency room with suicidal ideation on 11/10/2022.? The patient had been seeing a new psychiatrist who diagnosed her wit
[2022-11-17 17:19] LABS: Glucose Point of Care 165 mg/dl (65-105)
[2022-11-17 20:00] VITALS: PULSE 52; RESP 16; O2SAT 99
[2022-11-17 20:00] LABS: Glucose Point of Care 161 mg/dl (65-105)
[2022-11-17] MEDS: INSULIN GLARGINE (*BKC) 100 UNITS/ML 60 UNITS SUB-Q (20:06)
[2022-11-18] VITALS: BP 110/50; PULSE 84; RESP 18; O2SAT 96
[2022-11-18 04:32] LABS: Mean Corpuscular HGB Conc 34.2 g/dl (32-36); Mean Corpuscular Hemoglobin 31.3 pg (26-34); Mean Corpuscular Volume 91.3 fl (80-100); Mean Platelet Volume 9.9 fl (7.4-10.4); Platelet Count Result 253 k/mm3 (150-375); Red Blood Count 4.16 M/mm3 (4.2-5.4); Red Cell Distribution Width 12.2 % (11.5-14.5); White Blood Count 7.4 K/mm3 (4.5-10.0)
[2022-11-18 04:46] LABS: Albumin Level 3.7 g/dL (3.5-5.1); Anion Gap 6 mmol/L (8-16); Blood Urea Nitrogen 11 mg/dL (7-17); Calcium 8.9 mg/dL (8.4-10.2); Carbon Dioxide 29 mmol/L (22-30); Chloride 102 mmol/L (98-107); Estimated CRCL calculation 186 ml/min; Estimated Glomerular Filt Rate > 60; Glucose 83 mg/dL (65-110); Magnesium 1.6 mg/dL (1.6-2.3); Phosphorus 4.7 mg/dL (2.5-4.5); Potassium 3.5 mmol/L (3.4-5.0); Sodium 137 mmol/L (137-145)
[2022-11-18 08:00] VITALS: BP 123/74; PULSE 98; RESP 14; TEMP 36.7; O2SAT 99
[2022-11-18] MEDS: POTASSIUM CHLORIDE 20 MEQ TABLET 40 MEQ PO (09:03)
[2022-11-18] MEDS: ENOXAPARIN 40 MG/0.4 ML SYRINGE SUB-Q (09:04)
[2022-11-18] MEDS: MAGNESIUM OXIDE 400 MG TABLET PO (09:05)
[2022-11-18] MEDS: PANTOPRAZOLE SODIUM IV 40 MG VIAL IV PUSH (09:05)
[2022-11-18] MEDS: DOCUSATE SODIUM 100 MG CAPSULE PO ×2 (09:09→20:03)
[2022-11-18 09:27] LABS: Glucose Point of Care 94 mg/dl (65-105)
[2022-11-18 11:26] LABS: Glucose Point of Care 123 mg/dl (65-105)
[2022-11-18 16:00] VITALS: BP 131/79; PULSE 108; RESP 14; TEMP 36.9; O2SAT 96
--- NOTE | 2022-11-18 16:54 | PM.IMPN ---
Progress Note: A&P Assessment and Plan (1) Suicidal ideation: Code(s): R45.851 - Suicidal ideations Status: Acute Assessment and Plan: HPI-Narrative: This is a 22-year-old female patient who has a history depression and schizophrenia.? The patient came into the emergency room with suicidal ideation on 11/10/2022.? The patient had been seeing a new psychiatrist who diagnosed her with schizophrenia.? The patient has been unable to take her medication due to insurance problems.? The patient stated that she has been having hallucinations.? She stated that she is tired of taking medications and tired of dealing with this.? The patient stated that her blood sugars are always in the 3-4 0s.? The patient stated that she just did not want to live anymore she had thoughts of suicide.? She feels overwhelmed with her medical and psychiatric conditions.? She denies any homicidal ideation.? She has chronic visual and auditory hallucinations.? The patient stated that she just wants them all to go away.? The patient stated that the voices mock her and? argue with her.? The patient was in tears when I saw her and she stated that she is just tired of taking medications and tired of being sick and does not want to take any medications anymore and just wants to end her life.? Patient stated that she is upset about having to fight with the insurance company over her medications.? She stated she has been having difficulty seeing her specialist and she is tired of her blood sugars not being under control.? Her blood sugars are always in the 3 and 400s.? The patient stated she is not able to afford her insulin.? Her A1c is greater than 14.? The patient is awaiting transfer to psychiatric care facility inpatient. 11/18/2022 interval history: 22-year-old female with history of depression and schizophrenia presented emergency department with hallucination and suicidal ideation, plan was to discharge to psychiatric hospital patient has a uncontrolled diabetes with elevated blood sugar and hemoglobin A1c of 14, most likely secondary noncompliance with medical regimen, we have resumed patient's home medication, currently patient is on Lantus 80 units and fasting blood sugar are below 100, will decrease Lantus to 60 units at the bedtime, plan is to bring the patient blood sugar under reasonable control and possibly discharge the patient to [facility]. Today patient blood sugars close to target patient is medically cleared to be transferred to [facility], patient will continue current regimen, on 11/14 patient complained nausea and bloating most likely patient has diabetic gastroparesis started the patient on Reglan, her clinicall symptoms have improved, will stop reglan, patient remains clinically stable waiting for bed at the psychiatry hospital, patient has no new complaints, will continue to monitor (2) Poorly controlled diabetes mellitus: Code(s): E11.65 - Type 2 diabetes mellitus with hyperglycemia Status: Acute Assessment and Plan: Will have field assistant work with the patient (3) Dyslipidemia: Code(s): E78.5 - Hyperlipidemia, unspecified Status: Acute Assessment and Plan: Will check lipid panel (4) Anxiety and depression: Code(s): F41.9 - Anxiety disorder, unspecified; F32.A - Depression, unspecified Status: Acute Assessment and Plan: Patient with history of anxiety and depression patient will benefit going to inpatient [facility]. (5) Posttraumatic stress disorder: Code(s): F43.10 - Post-traumatic stress disorder, unspecified Status: Acute (6) Polycystic ovarian syndrome: Code(s): E28.2 - Polycystic ovarian syndrome Status: Acute Subjective Date/time seen: 11/18/22 16:54 HPI-Narrative: This is a 22-year-old female patient who has a history depression and schizophrenia.? The patient came into the emergency room with suicidal ideation on 11/10/2022.? The patient
[2022-11-18 17:33] LABS: Glucose Point of Care 195 mg/dl (65-105)
[2022-11-18] MEDS: ACETAMINOPHEN 325 MG TABLET 650 MG PO (18:18)
[2022-11-18 20:00] VITALS: PULSE 99; RESP 14; O2SAT 96
[2022-11-18 21:20] LABS: Glucose Point of Care 209 mg/dl (65-105)
[2022-11-18] MEDS: INSULIN GLARGINE (*BKC) 100 UNITS/ML 60 UNITS SUB-Q (21:29)
[2022-11-19] VITALS: BP 117/90; PULSE 98; RESP 20; TEMP 36.7; O2SAT 98
[2022-11-19 00:04] LABS: Glucose Point of Care 178 mg/dl (65-105)
--- NOTE | 2022-11-19 01:05 | PC.NURSE ---
Report given to CARSON Bertrand at [facility], [place], [facility]. [phone]
--- NOTE | 2022-11-19 04:28 | PC.NURSE ---
Patient transferred to [facility] [place], no complaints of pain, agreeable to plan of care, report previously called to nurse Elza. Patient's significant other called at 0429 and made aware of transfer. VSS. Loreta Garcia RN
--- NOTE | 2022-11-29 17:28 | PM.DS ---
DS: Admitting Diagnosis Discharge Date 11/19/22 Admitting Diagnosis Suicidal attempt DS: Discharge Diagnosis Discharge Diagnosis (1) Suicidal ideation: Code(s): R45.851 - Suicidal ideations Status: Acute Assessment and Plan: HPI-Narrative: This is a 22-year-old female patient who has a history depression and schizophrenia.? The patient came into the emergency room with suicidal ideation on 11/10/2022.? The patient had been seeing a new psychiatrist who diagnosed her with schizophrenia.? The patient has been unable to take her medication due to insurance problems.? The patient stated that she has been having hallucinations.? She stated that she is tired of taking medications and tired of dealing with this.? The patient stated that her blood sugars are always in the 3-4 0s.? The patient stated that she just did not want to live anymore she had thoughts of suicide.? She feels overwhelmed with her medical and psychiatric conditions.? She denies any homicidal ideation.? She has chronic visual and auditory hallucinations.? The patient stated that she just wants them all to go away.? The patient stated that the voices mock her and? argue with her.? The patient was in tears when I saw her and she stated that she is just tired of taking medications and tired of being sick and does not want to take any medications anymore and just wants to end her life.? Patient stated that she is upset about having to fight with the insurance company over her medications.? She stated she has been having difficulty seeing her specialist and she is tired of her blood sugars not being under control.? Her blood sugars are always in the 3 and 400s.? The patient stated she is not able to afford her insulin.? Her A1c is greater than 14.? The patient is awaiting transfer to psychiatric care facility inpatient. 11/18/2022 interval history: 22-year-old female with history of depression and schizophrenia presented emergency department with hallucination and suicidal ideation, plan was to discharge to psychiatric hospital patient has a uncontrolled diabetes with elevated blood sugar and hemoglobin A1c of 14, most likely secondary noncompliance with medical regimen, we have resumed patient's home medication, currently patient is on Lantus 80 units and fasting blood sugar are below 100, will decrease Lantus to 60 units at the bedtime, plan is to bring the patient blood sugar under reasonable control and possibly discharge the patient to [facility]. Today patient blood sugars close to target patient is medically cleared to be transferred to [facility], patient will continue current regimen, on 11/14 patient complained nausea and bloating most likely patient has diabetic gastroparesis started the patient on Reglan, her clinicall symptoms have improved, will stop reglan, patient remains clinically stable waiting for bed at the psychiatry hospital, patient has no new complaints, will continue to monitor (2) Poorly controlled diabetes mellitus: Code(s): E11.65 - Type 2 diabetes mellitus with hyperglycemia Status: Acute Assessment and Plan: Will have ems educator work with the patient (3) Dyslipidemia: Code(s): E78.5 - Hyperlipidemia, unspecified Status: Acute Assessment and Plan: Will check lipid panel (4) Anxiety and depression: Code(s): F41.9 - Anxiety disorder, unspecified; F32.A - Status: Acute Assessment and Plan: Patient with history of anxiety and depression patient will benefit going to inpatient [facility]. (5) Posttraumatic stress disorder: Code(s): F43.10 - Post-traumatic stress disorder, unspecified Status: Acute (6) Polycystic ovarian syndrome: Code(s): E28.2 - Polycystic ovarian syndrome Status: Acute DS: Summary Hospital Course Reason for hospitalization: HPI-Narrative: This is a 22-year-old female patient who has a history depression and schizophrenia.? The
== END 2022-11-19 04:15 ==
LOC: ANHED 11-12 10:36 → ANHICU 11-12 13:40
PROVIDERS: Emergency Medicine; Nurse Practitioner; Physician Assistant; Admitting Provider Family Medicine; Emergency Provider Emergency Medicine; PCP Physician Assistant; Visit Provider Family Medicine
DX: R45.851 Suicidal ideations (principal); E11.65 Type 2 diabetes mellitus with hyperglycemia; F32.A Depression, unspecified; F41.9 Anxiety disorder, unspecified; E87.6 Hypokalemia; F20.9 Schizophrenia, unspecified; Z20.822 Contact with and (suspected) exposure to COVID-19; F43.10 Post-traumatic stress disorder, unspecified; E28.2 Polycystic ovarian syndrome; E87.1 Hypo-osmolality and hyponatremia; E78.5 Hyperlipidemia, unspecified; E66.01 Morbid (severe) obesity due to excess calories; Z68.39 Body mass index [BMI] 39.0-39.9, adult; R51.9 Headache, unspecified; Z87.891 Personal history of nicotine dependence; Z79.4 Long term (current) use of insulin; Z79.51 Long term (current) use of inhaled steroids; Z79.899 Other long term (current) drug therapy; Z83.3 Family history of diabetes mellitus
CPT/HCPCS: 36415; 80048; 80053; 80069; 80307; 81003; 81025; 82948; 83036; 83605; 83735; 84443; 85025; 85027; 87426; 87636; 93005; 96360; 96372; 96374; 96375; 99285; A9270; C9113; C9803; G0378; J1650; J1815; J2405; J2550; J2765; J7030; J7120; U0003; U0005